=== PATIENT | male | born 1930 | race Caucasian/White ===

== ENCOUNTER 2017-02-28 17:59 | Inpatient (IN) | payer MEDICARE, BC ==
[2017-02-28] MEDS ORDERED: Sodium Chloride 0.9% 1,000 ML IV SCH (18:30)
--- NOTE | 2017-02-28 18:31 | EDM.PDOC ---
<Yo García - Last Filed: 02/28/17 18:25> ED HPI GENERAL MEDICAL PROBLEM - General Chief Complaint: Gastrointestinal Problem Stated Complaint: DIARRHEA,WEAK Time Seen by Provider: 02/28/17 18:26 Source of Information: Reports: Patient, Family - History of Present Illness INITIAL COMMENTS - FREE TEXT/NARRATIVE: 86 yo White male c/o N&V with Diarrhea after eating dinner. Pt. c/o weakness Onset Date: 02/27/17 Onset Time: 20:00 Duration: Hour(s):, Getting Worse Location: Reports: Abdomen, Generalized Severity: Moderate Context: Reports: Other (possible food poisoning) Associated Symptoms: Reports: Loss of Appetite, Nausea/Vomiting, Weakness - Related Data Allergies Allergy/AdvReac Type Severity Reaction Status Date / Time No Known Allergies Allergy Verified 08/14/14 09:50 Home Meds: Home Meds Allopurinol [Allopurinol] 300 mg PO DAILY 08/14/14 [History] Aspirin [Halfprin] 81 mg PO DAILY 08/14/14 [History] Glimepiride [Glimepiride] 4 mg PO BID 08/14/14 [History] Multivitamin [Multi Vitamin Daily] 1 tab PO DAILY 08/14/14 [History] Pantoprazole Sodium [Pantoprazole Sodium] 40 mg PO DAILY 08/14/14 [History] Simvastatin [Simvastatin] 40 mg PO DAILY 08/14/14 [History] Tamsulosin HCl [Tamsulosin HCl] 0.4 mg PO DAILY 08/14/14 [History] metFORMIN [Glucophage] 1,000 mg PO BID 08/14/14 [History] Levothyroxine [Synthroid] 100 mcg PO DAILY 02/28/17 [History] Past Medical History HEENT History: Reports: Impaired Vision Cardiovascular History: Reports: CAD, High Cholesterol, Hypertension Gastrointestinal History: Reports: GERD Genitourinary History: Reports: BPH Musculoskeletal History: Reports: Back Pain, Chronic, Gout, Osteoarthritis Endocrine/Metabolic History: Reports: Diabetes, Type II, Hypothyroidism - Past Surgical History HEENT Surgical History: Reports: Cataract Surgery Social & Family History - Family History Family Medical History: Noncontributory - Tobacco Use Smoking Status *Q: Never Smoker Second Hand Smoke Exposure: No - Caffeine Use Caffeine Use: Reports: Coffee - Alcohol Use Days Per Week of Alcohol Use: 0 - Recreational Drug Use Recreational Drug Use: No Drug Use in Last 12 Months: No - Living Situation & Occupation Living situation: Reports: , with Significant Other Occupation: Retired ED ROS GENERAL - Review of Systems Review Of Systems: See Below Constitutional: Reports: Malaise, Weakness, Fatigue, Decreased Appetite HEENT: Reports: No Symptoms Respiratory: Reports: No Symptoms Cardiovascular: Reports: No Symptoms Endocrine: Reports: No Symptoms GI/Abdominal: Reports: Distension, Nausea : Reports: No Symptoms Musculoskeletal: Reports: No Symptoms Skin: Reports: No Symptoms Neurological: Reports: No Symptoms Psychiatric: Reports: No Symptoms Hematologic/Lymphatic: Reports: No Symptoms Immunologic: Reports: No Symptoms ED EXAM, GENERAL - Physical Exam Exam: See Below Exam Limited By: No Limitations General Appearance: Alert, No Apparent Distress Eye Exam: Bilateral Eye: EOMI, PERRL Ears: Normal External Exam Nose: Normal Inspection Throat/Mouth: Normal Inspection Head: Atraumatic Neck: Normal Inspection Respiratory/Chest: No Respiratory Distress Cardiovascular: Normal Peripheral Pulses, Regular Rate, Rhythm GI/Abdominal: Soft, Non-Tender, Distended, Abnormal Bowel Sounds (hyperactive) (Male) Exam: No Hernia Back Exam: Normal Inspection Extremities: Normal Inspection Neurological: Alert, Oriented, CN II-XII Intact Psychiatric: Normal Affect Skin Exam: Warm, Dry Lymphatic: No Adenopathy Course - Vital Signs Last Recorded V/S: Last Vital Signs Temp 37.0 C 02/28/17 18:00 Pulse 112 H 02/28/17 18:00 Resp 18 02/28/17 18:00 BP 101/59 L 02/28/17 18:00 Pulse Ox 94 L 02/28/17 18:00 - Orders/Labs/Meds Orders: Active Orders 24 hr Category Date Time Status Abdomen 2V AP Flat Upright [CR] Urgent Exams 02/28/17 18:34 Taken Abdomen Pelvis wo Cont [CT] Urgent Exams 02/28/17 19:25 Taken Chest 2V [CR] Urgent Exams 02/28/17 18:25 Taken UA W/MICROSCOPIC [URIN] Stat Lab 02/28/17 18:25 Uncollected Sodium Chloride 0.9% [Normal Saline] 1,000 ml Med 02/28/17 18:30 Active IV ASDIRECTED Medication Orders Sodium Chloride (Normal Saline) 1,000 mls @ 100 mls/hr IV ASDIRECTED [facility] Last Admin: 02/28/17 18:38 Dose: 100 mls/hr Labs: Laboratory Tests 02/28/17 02/28/17 02/28/17 Range/Units 18:35 18:35 18:35 WBC 14.5 H (5.0-10.0) 10^3/uL RBC 4.18 L (4.6-6.2) 10^6/uL Hgb 12.2 L (14.0-18.0) g/dL Hct 37.5 L (40.0-54.0) % MCV 89.7 (80-100) fL MCH 29.2 (27.0-34.0) pg MCHC 32.5 L (33.0-35.0) g/dL Plt Count 220 (150-450) 10^3/uL Neut % (Auto) 80.8 H (42.2-75.2) % Lymph % (Auto) 8.0 L (20.5-50.1) % Callahan % (Auto) 11.0 H (2-8) % Eos % (Auto) 0.1 L (1.0-3.0) % Baso % (Auto) 0.1 (0.0-1.0) % Sodium 139 (135-145) mmol/L Potassium 5.1 H (3.6-5.0) mmol/L Chloride 108 (101-111) mmol/L Carbon Dioxide 19.0 L (21.0-31.0) mmol/L Anion Gap 17.1 BUN 37 H (7-18) mg/dL Creatinine 3.6 H (0.6-1.3) mg/dL Est Cr Clr Drug Dosing 16.79 mL/min Estimated GFR (MDRD) 16 BUN/Creatinine Ratio 10.27 Glucose 252 H (74-105) mg/dL Calcium 8.7 (8.4-10.2) mg/dl Total Bilirubin 0.8 (0.2-1.0) mg/dL AST 21 (10-42) IU/L ALT 13 (10-60) IU/L Alkaline Phosphatase 43 (42-121) IU/L Total Protein 6.8 (6.7-8.2) g/dl Albumin 3.5 (3.2-5.5) g/dl Globulin 3.3 Albumin/Globulin Ratio 1.06 Amylase 25 L (28-100) U/L Lipase 16 L (22-51) U/L Meds: Medications Generic Name Dose Route Start Last Admin Trade Name Freq PRN Reason Stop Dose Admin Sodium Chloride 1,000 mls @ 100 mls/hr 02/28/17 18:30 02/28/17 18:38 Normal Saline IV 100 mls/hr ASDIRECTED THANH Administration Discontinued Medications Generic Name Dose Route Start Last Admin Trade Name Freq PRN Reason Stop Dose Admin Ondansetron HCl 4 mg 02/28/17 18:45 02/28/17 19:01 Zofran IV 02/28/17 18:46 4 mg ONETIME ONE Administration Departure - Departure Disposition: Home, Self-Care 01 Clinical Impression: Gastroenteritis - Discharge Information Instructions: Viral Gastroenteritis, Adult, Ofja-al-Vper Referrals: Darnell Lombardi MD [Primary Care Provider] - Forms: ED Department Discharge Additional Instructions: 1) avoid solid foods next 48 hours 2) follow up with family doctor or recheck if there is any change or concern - My Orders Last 24 Hours: My Active Orders 02/28/17 19:25 Abdomen Pelvis wo Cont [CT] Urgent - Assessment/Plan Last 24 Hours: My Active Orders 02/28/17 19:25 Abdomen Pelvis wo Cont [CT] Urgent <Timmy Wright - Last Filed: 02/28/17 20:06> Course - Re-Assessments/Exams Free Text/Narrative Re-Assessment/Exam: 02/28/17 19:26 results discussed with pt who is feeling only somewhat better. 02/28/17 20:04 results discussed with spouse & pt who was sleeping arousable no c/o presently Departure - Departure Time of Disposition: 20:05 Condition: Good
[2017-02-28] MEDS ORDERED: Ondansetron 4 MG/2 ML SDV IV ONE (18:45)
--- NOTE | 2017-02-28 21:00 | PCM.HP ---
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 He is unable to keep anything down and had 10-12 BM only today from AM. In ED he was found to hypotensive, has received fluid blous but still had orthostatic Hypotension. Pt and his girl friend spend Thursday at campground and they spend weekends in the campground. At [employer] they use their own [place] and eat BBR[employer] meat, Girl friend eat the same meat but she did not have any GI symptom. I reviewed his renal Function and his base line creatinine 1.4-1.7 mg/dl. His creatinine in ED was 3.7 mg/dl with potassium of 5.1 meq/L. He also had CT scan of his Abd/Pelvis and showed Colinic Diverticula No Diverticultis, small bladder stone, mild non-specific changes to the small intestine, this is probably represents Viral Enteritis or other infectious enteritis. Adynamic ileus is also possible.. Onset of Symptoms: Reports: Gradual Duration of Symptoms: Reports: Getting Worse Associated Symptoms: Reports: Nausea/Vomiting - Related Data Allergies/Adverse Reactions: Allergies Allergy/AdvReac Type Severity Reaction Status Date / Time No Known Allergies Allergy Verified 02/28/17 21:14 Home Medications: Home Meds Allopurinol [Allopurinol] 300 mg PO WITHDINNER 08/14/14 [History] Aspirin [Halfprin] 81 mg PO DAILY 08/14/14 [History] Glimepiride [Glimepiride] 4 mg PO BIDMEALS 08/14/14 [History] Multivitamin [Multi Vitamin Daily] 1 tab PO DAILY 08/14/14 [History] Pantoprazole Sodium [Pantoprazole Sodium] 40 mg PO WITHDINNER 08/14/14 [History] Simvastatin [Simvastatin] 40 mg PO WITHDINNER 08/14/14 [History] Tamsulosin HCl [Tamsulosin HCl] 0.4 mg PO WITHDINNER 08/14/14 [History] metFORMIN [Glucophage] 1,000 mg PO BIDMEALS 08/14/14 [History] Levothyroxine [Synthroid] 100 mcg PO DAILY 02/28/17 [History] SitaGLIPtin [Januvia] 100 mg PO DAILY 02/28/17 [History] Valsartan 80 mg PO WITHDINNER 02/28/17 [History] Past Medical History HEENT History: Reports: Impaired Vision Cardiovascular History: Reports: CAD, High Cholesterol, Hypertension Gastrointestinal History: Reports: GERD Genitourinary History: Reports: BPH Musculoskeletal History: Reports: Back Pain, Chronic, Gout, Osteoarthritis Endocrine/Metabolic History: Reports: Diabetes, Type II, Hypothyroidism - Past Surgical History HEENT Surgical History: Reports: Cataract Surgery Social & Family History - Family History Family Medical History: Noncontributory - Tobacco Use Smoking Status *Q: Never Smoker Second Hand Smoke Exposure: No - Caffeine Use Caffeine Use: Reports: Coffee - Alcohol Use Days Per Week of Alcohol Use: 0 - Recreational Drug Use Recreational Drug Use: No Drug Use in Last 12 Months: No - Living Situation & Occupation Living situation: Reports: , with Significant Other Occupation: Retired H&P Review of Systems - Review of Systems: Review Of Systems: See Below General: Reports: Weakness. Denies: Fever, Chills, Weight Loss HEENT: Denies: Dysphasia, Post Nasal Drip, Sore Throat, Visual Changes Pulmonary: Denies: Shortness of Breath, Wheezing, Pleuritic Chest Pain, Cough, Sputum Cardiovascular: Reports: Lightheadedness. Denies: Chest Pain, Palpitations, Dyspnea on Exertion Gastrointestinal: Reports: Diarrhea, Vomiting. Denies: Abdominal Pain, Black Stool, Bloody Stool Genitourinary: Denies: Dysuria, Frequency, Burning, Urgency Musculoskeletal: Denies: Neck Pain, Arm Pain, Foot Pain, Joint Swelling Skin: Denies: Cyanosis, Dryness, Bruising, Pruritis, Rash Psychiatric: Denies: Confusion, Anxiety Neurological: Denies: Confusion, Tingling, Tremors Hematologic/Lymphatic: Reports: No Symptoms Immunologic: Reports: No Symptoms Exam - Exam Exam: See Below - Vital Signs Vital Signs: Last Vital Signs Temp 36.8 C 02/28/17 20:15 Pulse 69 02/28/17 20:15 Resp 16 02/28/17 20:15 BP 89/59 L 02/28/17 20:16 Pulse Ox 95 02/28/17 20:15 Weight: 92.986 kg - Exam Quality Assessment: DVT Prophylaxis. No: Supplemental Oxygen, Urinary Catheter General: Alert, Oriented, Cooperative HEENT: Conjunctiva Clear, Hearing Intact, Mucosa Moist & [place], Pupils Reactive Neck: Supple. No: Lymphadenopathy, Thyromegaly Lungs: Clear to Auscultation, Normal Respiratory Effort. No: Crackles, Wheezing Cardiovascular: Regular Rate, Regular Rhythm, Normal S1, Normal S2, Systolic Murmur GI/Abdominal Exam: Normal Bowel Sounds, Soft, Non-Tender. No: Guarding, Rebound , Tender (Male) Exam: Deferred Rectal (Males) Exam: Deferred Back Exam: Normal Inspection, Full Range of Motion Extremities: Normal Inspection, No Pedal Edema. No: Joint Swelling Skin: Warm, Dry, Intact Neurological: Cranial Nerves Intact, Reflexes Equal Bilateral Neuro Extensive - Mental Status: Alert, Oriented x3, Normal Mood/Affect, Normal Cognition, Memory Intact Neuro Extensive - Motor, Sensory, Reflexes: CN II-XII Intact, Normal Gait, Normal Reflexes Psychiatric: Alert, Normal Affect, Normal Mood - Patient Data Result Diagrams: 02/28/17 18:35 02/28/17 18:35 *Q Meaningful Use (ADM) - VTE *Q VTE Criteria *Q: - Stroke *Q Stroke Criteria *Q: - AMI *Q AMI Criteria *Q: - Problem List (1) Hypertension SNOMED Code(s): 54379746 ICD Code: I10 - ESSENTIAL (PRIMARY) HYPERTENSION Status: Acute Current Visit: Yes (2) SUZANNE (acute kidney injury) SNOMED Code(s): 04532911 ICD Code: N17.9 - ACUTE KIDNEY FAILURE, UNSPECIFIED Status: Acute Current Visit: Yes (3) Vomiting and diarrhea SNOMED Code(s): 124639599 ICD Code: R11.10 - VOMITING, UNSPECIFIED; R19.7 - DIARRHEA, UNSPECIFIED Status: Acute Current Visit: Yes (4) Gastroenteritis SNOMED Code(s): 72878522 ICD Code: K52.9 - NONINFECTIVE GASTROENTERITIS AND COLITIS, UNSPECIFIED Status: Acute Current Visit: Yes Problem List Initiated/Reviewed/Updated: Yes Orders Last 24hrs: Medication Orders Sodium Chloride (Normal Saline) 1,000 mls @ 100 mls/hr IV ASDIRECTED [facility] Last Admin: 02/28/17 18:38 Dose: 100 mls/hr Assessment/Plan Comment:: This is a 86 y/o M came to ED with Diarrhea and Vomting for 48 hrs and also noted have acute renal failure 1. 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 Diff, Ova and parasites -Encourage oral intake of fluids 2. SUZANNE: This is pre-renal Azotemia from relative Hypotension from Diarrhea causing decreased renal Perfusion and leading to acute ischemic Injury Vs ATN -Will continue ND at 150 ml/hr -Will hold all anti-HTN medication, especially Diaovan [ was at 80 mg daily] -Continue I/O recording -BMP in AM 3. Metabolic acidosis: This is secondary to Diarrhea and SUZANNE -Will continue IV fluids and with Recovery of renal function acidosis will improve 4. Hypertension: His BP in ED was low and will hold all home medication 5. CKD stage III: This is likely from HTN and diabetes -Base line creatinine 1.4-1.7 mg/dl and acute rise from SUZANNE - He needs follow up in Nephrology clinic 6. Diabetes II : He was taking Januvia 100 mg daily and Metformin 1000 mg BID -Will hold Metformin and continue Januvia -Will also cover with sliding insulin scale -Will chek blood sugar 4 times a day 7. 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 BPH: Will continue flomax 0.4 mg daily 9. Dyslipidemia: Continue Simvastain at 80 mg daily 10. GI prophylaxis: Start on pepcid at 40 mg daily 11. DVT prophylaxis: Heparin 5000 units TID Code Status: DNR/DNI
[2017-02-28] MEDS ORDERED: Docusate Sodium 100 MG Cap PO PRN (21:41)
[2017-02-28] MEDS ORDERED: Acetaminophen 325 MG Tab PO PRN (21:41)
[2017-02-28] MEDS ORDERED: Metoclopramide 10 MG/2 ML SDV IVPUSH PRN (22:13)
[2017-02-28] MEDS: Heparin Sodium 5,000 Units/ML Vial SUBCUT SCH (22:39)
[2017-02-28] MEDS: Sodium Chloride 0.9% 1,000 ML IV SCH (22:39)
[2017-02-28] MEDS ORDERED: Insulin Aspart 100 Units/ML 3 ML Pen SUBCUT ONE (23:00)
[2017-03-01] MEDS: Sodium Chloride 0.9% 1,000 ML IV SCH ×3 (05:21→19:12)
[2017-03-01] MEDS: Levothyroxine 100 MCG Tab PO SCH (06:16)
[2017-03-01] MEDS: Heparin Sodium 5,000 Units/ML Vial SUBCUT SCH ×3 (06:16→21:38)
[2017-03-01] MEDS: Pantoprazole 40 MG Tab.CR PO SCH (06:16)
[2017-03-01] MEDS: Insulin Aspart 100 Units/ML 3 ML Pen SUBCUT SCH ×4 (08:48→21:38)
[2017-03-01] MEDS: Tamsulosin 0.4 MG Cap.ER PO SCH (09:21)
[2017-03-01] MEDS: Glimepiride 2 MG Tab PO SCH ×2 (09:21→17:13)
[2017-03-01] MEDS: Aspirin 81 MG Tab.EC PO SCH (09:21)
--- NOTE | 2017-03-01 10:27 | PCM.PN ---
- General Info Date of Service: 03/01/17 Admission Dx/Problem (Free Text): The pt admitted with Diarrhea and acute renal Failure Subjective Update: Pt was seen in room, doing well, No more diarrhea over the night, No nausea or Vomiting. Tolerating clear liquid, will advance diet to regular consistent carbohydrate diet. He had no fever or Chill Functional Status: Reports: Pain Controlled, Tolerating Diet, Ambulating, Urinating - Review of Systems General: Reports: Appetite (good). Denies: Fever, Malaise, Chills HEENT: Denies: Headaches, Sinus Congestion, Sore Throat, Visual Changes Pulmonary: Denies: Shortness of Breath, Pleuritic Chest Pain, Cough, Sputum, Wheezing Cardiovascular: Reports: Lightheadedness. Denies: Chest Pain, Dyspnea on Exertion, Edema Gastrointestinal: Reports: Diarrhea. Denies: Abdominal Pain, Melena, Nausea, Vomiting Genitourinary: Denies: Dysuria, Frequency, Burning, Urgency, Flank Pain Musculoskeletal: Denies: Neck Pain, Shoulder Pain, Leg Pain, Foot Pain Skin: Denies: Cyanosis, Jaundice, Bruising, Pruritis, Rash Neurological: Denies: Confusion, Headache, Tingling, Tremors Psychiatric: Denies: Confusion, Anxiety - Patient Data Vitals - Most Recent: Last Vital Signs Temp 36.8 C 03/01/17 08:23 Pulse 89 03/01/17 08:23 Resp 20 03/01/17 08:23 BP 107/58 L 03/01/17 08:23 Pulse Ox 98 03/01/17 08:23 Weight - Most Recent: 92.986 kg I&O - Last 24 Hours: Intake & Output 02/28/17 03/01/17 03/01/17 22:59 06:59 14:59 Intake Total 450 Balance 450 Lab Results Last 24 Hours: Laboratory Results - last 24 hr 02/28/17 03/01/17 03/01/17 Range/Units 22:28 06:15 07:54 Sodium 141 (135-145) mmol/L Potassium 4.5 (3.6-5.0) mmol/L Chloride 109 (101-111) mmol/L Carbon Dioxide 21.0 (21.0-31.0) mmol/L Anion Gap 15.5 BUN 45 H (7-18) mg/dL Creatinine 3.6 H (0.6-1.3) mg/dL Est Cr Clr Drug Dosing 16.79 mL/min Estimated GFR (MDRD) 16 Glucose 144 H (74-105) mg/dL POC Glucose 184 H 143 H (83-110) mg/dl Calcium 7.9 L (8.4-10.2) mg/dl Urine Color (YELLOW) Urine Appearance (CLEAR) Urine pH (5.0-9.0) Ur Specific [place] (1.005-1.030) Urine Protein (NEGATIVE) Urine Glucose (UA) (NEGATIVE) Urine Ketones (NEGATIVE) Urine Occult Blood (NEGATIVE) Urine Nitrite (NEGATIVE) Urine Bilirubin (NEGATIVE) Urine Urobilinogen (0.2-1.0) mg/dL Ur Leukocyte Esterase (NEGATIVE) Urine RBC /HPF Urine WBC (0-5/HPF) /HPF Ur Epithelial Cells /HPF Amorphous Sediment (0/HPF) /HPF Urine Bacteria (0-FEW/HPF) /HPF Hyaline Casts /LPF Urine Mucus /LPF 03/01/17 Range/Units 08:50 Sodium (135-145) mmol/L Potassium (3.6-5.0) mmol/L Chloride (101-111) mmol/L Carbon Dioxide (21.0-31.0) mmol/L Anion Gap BUN (7-18) mg/dL Creatinine (0.6-1.3) mg/dL Est Cr Clr Drug Dosing mL/min Estimated GFR (MDRD) Glucose (74-105) mg/dL POC Glucose (83-110) mg/dl Calcium (8.4-10.2) mg/dl Urine Color Dark yellow (YELLOW) Urine Appearance Clear (CLEAR) Urine pH 5.0 (5.0-9.0) Ur Specific [place] 1.020 (1.005-1.030) Urine Protein 30 H (NEGATIVE) Urine Glucose (UA) Negative (NEGATIVE) Urine Ketones Trace H (NEGATIVE) Urine Occult Blood Negative (NEGATIVE) Urine Nitrite Negative (NEGATIVE) Urine Bilirubin Moderate H (NEGATIVE) Urine Urobilinogen 0.2 (0.2-1.0) mg/dL Ur Leukocyte Esterase Negative (NEGATIVE) Urine RBC Not seen /HPF Urine WBC 0-5 (0-5/HPF) /HPF Ur Epithelial Cells Few /HPF Amorphous Sediment Few (0/HPF) /HPF Urine Bacteria Not seen (0-FEW/HPF) /HPF Hyaline Casts Few H /LPF Urine Mucus Not seen /LPF Med Orders - Current: Current Medications Acetaminophen (Tylenol) 650 mg PO Q4H PRN PRN Reason: Pain (mild 1-3 )/fever Aspirin (Halfprin) 81 mg PO DAILY [facility] Last Admin: 03/01/17 09:21 Dose: 81 mg Docusate Sodium (Colace) 100 mg PO DAILY PRN PRN Reason: Constipation Glimepiride (Amaryl) 4 mg PO BIDMEALS [facility] Last Admin: 03/01/17 09:21 Dose: 4 mg Heparin Sodium (Porcine) (Heparin Sodium) 5,000 units SUBCUT Q8H [facility] Last Admin: 03/01/17 06:16 Dose: 5,000 units Sodium Chloride (Normal Saline) 1,000 mls @ 150 mls/hr IV ASDIRECTED [facility] Last Admin: 03/01/17 05:21 Dose: 150 mls/hr Insulin Aspart (Novolog) 0 unit SUBCUT QID [facility] PRN Reason: Protocol Last Admin: 03/01/17 08:48 Dose: Not Given Levothyroxine Sodium (Synthroid) 100 mcg PO ACBREAKFAST [facility] Last Admin: 03/01/17 06:16 Dose: 100 mcg Metoclopramide HCl (Reglan) 5 mg IVPUSH Q6H PRN PRN Reason: Nausea Non-Formulary Medication (Sitagliptin [Januvia]) 100 mg PO DAILY [facility] Pantoprazole Sodium (Protonix) 40 mg PO ACBRK [facility] Last Admin: 03/01/17 06:16 Dose: 40 mg [facility]) [facility] Tamsulosin HCl (Flomax) 0.4 mg PO DAILY [facility] Last Admin: 03/01/17 09:21 Dose: 0.4 mg Discontinued Medications Sodium Chloride (Normal Saline) 1,000 mls @ 100 mls/hr IV ASDIRECTED [facility] Last Admin: 02/28/17 18:38 Dose: 100 mls/hr Insulin Aspart (Novolog) 0 unit SUBCUT ONETIME ONE PRN Reason: Protocol Stop: 02/28/17 23:01 Last Admin: 02/28/17 23:02 Dose: 2 units Ondansetron HCl (Zofran) 4 mg IV ONETIME ONE Stop: 02/28/17 18:46 Last Admin: 02/28/17 19:01 Dose: 4 mg - Exam Quality Assessment: DVT Prophylaxis. No: Supplemental Oxygen, Urine Catheter General: Alert, Oriented, Cooperative, No Acute Distress HEENT: Pupils Equal, EOMI, Mucous Membr. Moist/[place] Neck: Supple, No JVD. No: Lymphadenopathy Lungs: Clear to Auscultation, Normal Respiratory Effort. No: Crackles, Wheezing Cardiovascular: Regular Rate, Regular Rhythm, Murmurs GI/Abdominal Exam: Normal Bowel Sounds, Soft, Non-Tender, No Distention. No: Guarding, Rebound (Male) Exam: Deferred Back Exam: Normal Inspection, Full Range of Motion Extremities: Normal Inspection, Non-Tender, No Pedal Edema Skin: Warm, Dry, Intact Neurological: No New Focal Deficit, Normal Speech, Normal Tone Psy/Mental Status: Alert, Normal Affect, Normal Mood - Problem List & Annotations (1) Hypertension SNOMED Code(s): 66254546 Code(s): I10 - ESSENTIAL (PRIMARY) HYPERTENSION Status: Acute Current Visit: Yes (2) SUZANNE (acute kidney injury) SNOMED Code(s): 57377225 Code(s): N17.9 - ACUTE KIDNEY FAILURE, UNSPECIFIED Status: Acute Current Visit: Yes (3) Vomiting and diarrhea SNOMED Code(s): 990749498 Code(s): R11.10 - VOMITING, UNSPECIFIED; R19.7 - DIARRHEA, UNSPECIFIED Status: Acute Current Visit: Yes (4) Gastroenteritis SNOMED Code(s): 18619941 Code(s): K52.9 - NONINFECTIVE GASTROENTERITIS AND COLITIS, UNSPECIFIED Status: Acute Current Visit: Yes - Problem List Review Problem List Initiated/Reviewed/Updated: Yes - My Orders Last 24 Hours: My Active Orders 02/28/17 21:49 OVA & PARASITES Routine 02/28/17 21:50 C DIFFICILE TOXIN BY PCR [MREF] Routine 02/28/17 22:00 Sodium Chloride 0.9% [Normal Saline] 1,000 ml IV ASDIRECTED 02/28/17 22:12 Blood Glucose Check, Bedside [RC] QIDACANDBED 02/28/17 22:13 Metoclopramide [Reglan] 5 mg IVPUSH Q6H PRN 03/01/17 06:00 Levothyroxine [Synthroid] 100 mcg PO ACBREAKFAST Pantoprazole [ProTONIX] 40 mg PO ACBRK 03/01/17 08:00 Glimepiride [Amaryl] 4 mg PO BIDMEALS 03/01/17 09:00 Aspirin [Halfprin] 81 mg PO DAILY Insulin Aspart [NovoLOG] See Protocol SUBCUT QID SitaGLIPtin [Januvia] 100 mg PO DAILY Tamsulosin [Flomax] 0.4 mg PO DAILY 03/01/17 18:30 Simvastatin [Zocor] 40 mg PO PCDINNER 03/01/17 Lunch Consistent Carbohydrate Diet [DIET] - Plan Plan:: This is a 86 y/o M came to ED with Diarrhea and Vomting for 48 hrs and also noted have acute renal failure 1. 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 Diff, Ova and parasites -Encourage oral intake of fluids 2. SUZANNE: This is pre-renal Azotemia from relative Hypotension from Diarrhea causing decreased renal Perfusion and leading to acute ischemic Injury Vs ATN -Will continue ND at 150 ml/hr -Will hold all anti-HTN medication, especially Diaovan [ he was at 80 mg daily] -Continue I/O recording -BMP in AM 3. Metabolic acidosis: This is secondary to Diarrhea and SUZANNE -Will continue IV fluids and Improving with Recovery of renal function and Diarrhea 4. Hypertension: His BP in is still low,Will continue to hold all home medication and continue IVF 5. CKD stage III: This is likely from HTN and diabetes -Base line creatinine 1.4-1.7 mg/dl and acute rise from SUZANNE - He needs follow up in Nephrology clinic< discussed with pt and Girl Friend and he agreed to have follow up 6. Diabetes II : He was taking Januvia 100 mg daily and Metformin 1000 mg BID -Will continue to hold Metformin ( because of SUZANNE) and continue Januvia -Will continue sliding insulin scale coverage -Will Continue to chek blood sugar 4 times a day 7. Hyperuricemia: He was on allopurinol 300 mg daily and will continue to hold now because of SUZANNE 8. BPH: Will continue flomax 0.4 mg daily 9. Dyslipidemia: Continue Simvastain at 80 mg daily 10. GI prophylaxis: Continue pepcid at 40 mg daily 11. DVT prophylaxis: Heparin 5000 units TID Code Status: DNR/DNI
[2017-03-01] MEDS: JANUVIA 100 MG PO SCH (12:09)
[2017-03-01] MEDS: Simvastatin 40 MG Tab PO SCH ×2 (17:14→18:28)
[2017-03-02] MEDS: Sodium Chloride 0.9% 1,000 ML IV SCH ×2 (01:51→08:45)
[2017-03-02] MEDS: Pantoprazole 40 MG Tab.CR PO SCH (05:24)
[2017-03-02] MEDS: Heparin Sodium 5,000 Units/ML Vial SUBCUT SCH (05:24)
[2017-03-02] MEDS: Levothyroxine 100 MCG Tab PO SCH (05:24)
[2017-03-02] MEDS: Insulin Aspart 100 Units/ML 3 ML Pen SUBCUT SCH (08:22)
[2017-03-02] MEDS: Glimepiride 2 MG Tab PO SCH (08:56)
[2017-03-02] MEDS: Tamsulosin 0.4 MG Cap.ER PO SCH (08:56)
[2017-03-02] MEDS: Aspirin 81 MG Tab.EC PO SCH (08:56)
[2017-03-02] MEDS: JANUVIA 100 MG PO SCH (08:57)
[2017-03-02 11:17] VITALS: BP 126/74
--- NOTE | 2017-03-11 01:20 | DISCH ---
FINAL DIAGNOSES: 1. Acute kidney injury. 2. Episodes of vomiting and diarrhea. 3. Hypertension. 4. Diabetes. 5. Dyslipidemia. BRIEF HISTORY AND PHYSICAL EXAMINATION: The patient is an 86-year-old male, who was brought in because of diarrhea and acute renal failure. Apparently, 2 days prior to this visit, has been having episodes of diarrhea and vomiting, and around 10 to 12 bowel movements since morning of admission. He has chronic kidney disease. Baseline creatinine 1.4 to 1.7. However, on admission, was noted to have elevated creatinine at 3.7. PAST MEDICAL HISTORY: 1. Hypertension. 2. Heart problem. 3. Back pain. 4. Osteoarthritis. 5. Diabetes. PHYSICAL EXAMINATION: Vital Signs: Documented physical exam shows a blood pressure of 89/59, heart rate of 69 beats per minute, respirations 16 breaths per minute, oxygen saturation 95%, temperature 36.8. Rest of the examination is within normal limits. Abdomen: Soft, nontender. No rebound or direct tenderness. LABORATORY DATA: Workup done during hospitalization showed WBC of 14.5, hemoglobin 12.2, platelets 220. Initial potassium was 5.1, creatinine 3.6, glucose 252. The discharge creatinine showed 2.6. Microbiologic study showed stool culture with no Cryptosporidium or Giardia. HOSPITAL COURSE: The patient was admitted in medical-surgical bed. Some of his blood pressure medications were on hold given the borderline blood pressure. He was hydrated. In's and out's were monitored, was putting out adequate urine output. 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 The latest one was 126/74. No recurrence of diarrhea nor vomiting during the admission. CAT scan showed no diverticulitis given his chronic colonic diverticular. Rest of his medications were continued during this admission. DVT prophylaxis with heparin. Discharge vital signs showed blood pressure of 126/74, heart rate of 80 beats per minute, respirations 20 breaths per minute, oxygen saturation 98%, and temperature 37.0. DISCHARGE INSTRUCTIONS: The patient to follow up with primary care provider within 1 week from discharge. Advised that he will slowly start taking his blood pressure medication and to keep up with fluids. The patient to come back to the emergency room if any emergent health concerns. Otherwise, inform clinic with other questions. [facility] /[id number] [facility]
== END 2017-03-02 12:04 | disposition home or self-care (01) | DRG 392 ==
LOC: DL.ED 17:59 → DL.MS 20:37 → UNDOADMIN 20:37 → DL.MS 20:38
PROVIDERS: ADMIT Internal Medicine Nephrology; ATTEND Internal Medicine Nephrology
DX: K52.9 Noninfective gastroenteritis and colitis, unspecified (principal); E87.2 Acidosis; N17.9 Acute kidney failure, unspecified; A08.4 Viral intestinal infection, unspecified; E11.22 Type 2 diabetes mellitus with diabetic chronic kidney disease; I12.9 Hypertensive chronic kidney disease with stage 1 through stage 4 chronic kidney disease, or unspecified chronic kidney disease; N18.3 Chronic kidney disease, stage 3 (moderate); E79.0 Hyperuricemia without signs of inflammatory arthritis and tophaceous disease; N40.0 Benign prostatic hyperplasia without lower urinary tract symptoms; E78.5 Hyperlipidemia, unspecified; Z79.82 Long term (current) use of aspirin; Z79.84 Long term (current) use of oral hypoglycemic drugs; Z79.899 Other long term (current) drug therapy
CPT/HCPCS: 36415; 51798; 71020; 74020; 74176; 80048; 80053; 81001; 82150; 82962; 83690; 85025; 87328; 87329; 87493; 96361; 96374; 99284; 99285; A9270-GY; J1644; J1815-GY; J2405; J7030

== ENCOUNTER 2020-12-30 19:21 | Emergency (ER) | payer MEDICARE, BC ==
--- NOTE | 2020-12-30 19:45 | EDM.PDOC ---
ED HPI GENERAL MEDICAL PROBLEM - General Stated Complaint: AMBULANCE Time Seen by Provider: 12/30/20 19:22 Source of Information: Reports: Patient, EMS, EMS Notes Reviewed, RN, RN Notes Reviewed History Limitations: Reports: No Limitations - History of Present Illness INITIAL COMMENTS - FREE TEXT/NARRATIVE: Patient is an 89-year-old male who presents to ER per [facility] ambulance service with complaint of right leg/hip pain. Patient states he had been out to the [facility] for Father's Day treats with his family when he came home and tripped over a crack in the cement, fell unable to get up. Patient states he "bumped his head" but denies any pain, denies being knocked out, denies taking any blood thinners. Patient does take a baby aspirin. Patient states he does use a cane, lives in an apartment with his significant other. Patient states history of diabetes. Onset: Today, Sudden - Related Data Allergies Allergy/AdvReac Type Severity Reaction Status Date / Time No Known Allergies Allergy Verified 02/28/17 21:14 Home Meds: Home Meds Aspirin [Halfprin] 81 mg PO DAILY 08/14/14 [History] Glimepiride 4 mg PO BIDMEALS 08/14/14 [History] Multivitamin [Multi-Vitamin Daily] 1 tab PO DAILY 08/14/14 [History] Pantoprazole Sodium 40 mg PO WITHDINNER 08/14/14 [History] Simvastatin 40 mg PO WITHDINNER 08/14/14 [History] Tamsulosin HCl 0.4 mg PO WITHDINNER 08/14/14 [History] allopurinoL [Allopurinol] 300 mg PO WITHDINNER 08/14/14 [History] metFORMIN [Glucophage] 1,000 mg PO BIDMEALS 08/14/14 [History] Levothyroxine [Synthroid] 100 mcg PO DAILY 02/28/17 [History] SitaGLIPtin [Januvia] 100 mg PO DAILY 02/28/17 [History] Valsartan 80 tab PO DAILY 03/02/17 [History] Past Medical History HEENT History: Reports: Impaired Vision Cardiovascular History: Reports: CAD, High Cholesterol, Hypertension Gastrointestinal History: Reports: GERD Genitourinary History: Reports: BPH Musculoskeletal History: Reports: Back Pain, Chronic, Gout, Osteoarthritis Neurological History: Reports: TIA Endocrine/Metabolic History: Reports: Diabetes, Type II, Hypothyroidism - Past Surgical History HEENT Surgical History: Reports: Cataract Surgery Social & Family History - Family History Family Medical History: No Pertinent Family History - Caffeine Use Caffeine Use: Reports: Coffee - Living Situation & Occupation Living situation: Reports: , with Significant Other Occupation: Retired Review of Systems - Review of Systems Review Of Systems: Comprehensive ROS is negative, except as noted in HPI. ED EXAM, GENERAL - Physical Exam Exam: See Below Exam Limited By: Physical Impairment General Appearance: Alert, WD/WN, Mild Distress Eye Exam: Bilateral Eye: EOMI, Normal Inspection Ears: Normal External Exam, Hearing Grossly Normal Nose: Normal Inspection Throat/Mouth: Normal Inspection, Normal Voice, No Airway Compromise Head: Atraumatic, Normocephalic Neck: Normal Inspection, Supple, Non-Tender, Full Range of Motion Respiratory/Chest: No Respiratory Distress, Lungs Clear, Normal Breath Sounds, No Accessory Muscle Use, Chest Non-Tender, Decreased Breath Sounds Cardiovascular: Normal Peripheral Pulses, Regular Rate, Rhythm, No Edema, No Gallop, No JVD, No Murmur, No Rub Peripheral Pulses: 2+: Radial (L), Radial (R), Dorsalis Pedis (L), Dorsalis Pedis (R) GI/Abdominal: Normal Bowel Sounds, Soft, Non-Tender (Male) Exam: Deferred Rectal (Males) Exam: Deferred Back Exam: Normal Inspection, Full Range of Motion, NT Extremities: Leg Pain (Right), Limited Range of Motion (Right leg) Neurological: Alert, Oriented, CN II-XII Intact, Normal Cognition, No Motor/Sensory Deficits Psychiatric: Normal Affect, Normal Mood Skin Exam: Warm, Dry, Intact, Normal Color, No Rash Lymphatic: No Adenopathy #1 Interpretation EKG Date: 12/30/20 Time: 19:54 Rhythm: NSR Rate (Beats/Min): 85 [place]: Normal P-Wave: Present QRS: Normal ST-T: Normal QT: Normal Comparison: NA - No Prior EKG Course - Orders/Labs/Meds Orders: Active Orders 24 hr Category Date Time Status EKG Documentation Completion [RC] STAT Care 12/30/20 19:38 Active UA RFX ALEXY AND CULT IF INDIC [URIN] Stat Lab 12/30/20 19:39 Ordered Labs: Laboratory Tests 12/30/20 12/30/20 12/30/20 Range/Units 19:26 19:26 19:26 WBC 6.3 (5.0-10.0) 10^3/uL RBC 4.46 L (4.6-6.2) 10^6/uL Hgb 13.6 L (14.0-18.0) g/dL Hct 40.6 (40.0-54.0) % MCV 91.0 (80-100) fL MCH 30.5 (27.0-34.0) pg MCHC 33.5 (33.0-35.0) g/dL Plt Count 195 (150-450) 10^3/uL Neut % (Auto) 49.8 (42.2-75.2) % Lymph % (Auto) 37.5 (20.5-50.1) % [place] % (Auto) 9.9 H (2-8) % Eos % (Auto) 2.2 (1.0-3.0) % Baso % (Auto) 0.6 (0.0-1.0) % PT 10.5 (9.0-12.0) SEC INR 1.0 (0.9-1.2) Sodium 142 (136-145) mmol/L Potassium 4.2 (3.5-5.1) mmol/L Chloride 105 (98-107) mmol/L Carbon Dioxide 29 (21-32) mmol/L Anion Gap 12.2 (7-13) mEq/L BUN 22 H (7-18) mg/dL Creatinine 2.00 H (0.70-1.30) mg/dL Est Cr Clr Drug Dosing TNP Estimated GFR (MDRD) 32 BUN/Creatinine Ratio 11.0 (No establ ref range) Glucose 233 H (70-99) mg/dL Calcium 8.3 L (8.5-10.1) mg/dL Total Bilirubin 0.7 (0.2-1.0) mg/dL AST 16 (15-37) U/L ALT 28 (16-63) U/L Alkaline Phosphatase 70 (46-116) U/L Total Protein 6.6 (6.4-8.2) g/dL Albumin 3.1 L (3.4-5.0) g/dL Globulin 3.5 Albumin/Globulin Ratio 0.89 Ethyl Alcohol < 3 (0) mg/dL Meds: Medications Discontinued Medications Generic Name Dose Route Start Last Admin Trade Name Delvis PRN Reason Stop Dose Admin Hydromorphone HCl 1 mg 12/30/20 19:47 12/30/20 19:57 Hydromorphone 1 Mg/Ml Syringe IVPUSH 12/30/20 19:48 1 mg ONETIME ONE Administration - Radiology Interpretation Free Text/Narrative:: Right hip xray: PROCEDURE INFORMATION: Exam: XR Right Hip Exam date and time: 12/30/2020 8:06 PM Age: 89 years old Clinical indication: Other: Pain right hip; Additional info: Fall, shortened right leg, outward facing TECHNIQUE: Imaging protocol: XR Right hip. Views: 2 or 3 views hip with pelvis when performed. Total images: 2 COMPARISON: No relevant prior studies available. FINDINGS: Bones/joints: There is an acute displaced comminuted right intertrochanteric fracture. Marked medial displacement main distal fracture fragment. There is some angulation. There is an additional small Displaced fracture fragment inferior to the main fracture site Soft tissues: Unremarkable. IMPRESSION: Acute displaced comminuted right intertrochanteric femoral fracture. Thank you for allowing us to participate in the care of your patient. Dictated and Authenticated by: Geovanny Lay MD 12/30/2020 8:35 PM Central Time ([place] & [place]) See rad report - Re-Assessments/Exams Free Text/Narrative Re-Assessment/Exam: 12/30/20 20:52 Discussed patient case with Dr. Concepcion at [facility] who agreed to accept the patient for transfer. Departure - Departure Time of Disposition: 20:52 Disposition: DC/Tfer to Acute Hospital 02 Condition: Fair Clinical Impression: Intertrochanteric fracture, hip - Discharge Information *PRESCRIPTION DRUG MONITORING PROGRAM REVIEWED*: No *COPY OF PRESCRIPTION DRUG MONITORING REPORT IN PATIENT GENESIS: No Forms: ED Department Discharge, Interfacility Transfer EMTALA - My Orders Last 24 Hours: My Active Orders 12/30/20 19:38 EKG Documentation Completion [RC] STAT 12/30/20 19:39 UA RFX ALEXY AND CULT IF INDIC [URIN] Stat - Assessment/Plan Last 24 Hours: My Active Orders 12/30/20 19:38 EKG Documentation Completion [RC] STAT 12/30/20 19:39 UA RFX ALEXY AND CULT IF INDIC [URIN] Stat
[2020-12-30] MEDS ORDERED: HYDROmorphone 1 MG/ML Syringe IVPUSH ONE (19:47)
[2020-12-30 20:04] LABS: ANION GAP 12.2 mEq/L (7-13); CHLORIDE,CL 105 mmol/L (98-107); SODIUM,NA 142 mmol/L (136-145)
--- NOTE | 2020-12-30 20:36 | CR ---
PROCEDURE INFORMATION: Exam: XR Right Hip Exam date and time: 12/30/2020 8:06 PM Age: 89 years old Clinical indication: Other: Pain right hip; Additional info: Fall, shortened right leg, outward facing TECHNIQUE: Imaging protocol: XR Right hip. Views: 2 or 3 views hip with pelvis when performed. Total images: 2 COMPARISON: No relevant prior studies available. FINDINGS: Bones/joints: There is an acute displaced comminuted right intertrochanteric fracture. Marked medial displacement main distal fracture fragment. There is some angulation. There is an additional small Displaced fracture fragment inferior to the main fracture site Soft tissues: Unremarkable. IMPRESSION: Acute displaced comminuted right intertrochanteric femoral fracture.
[2020-12-30 21:35] VITALS: BP 155/78; PULSE 85
== END 2020-12-30 21:17 ==
LOC: DL.ED 19:21
DX: S72.141A Displaced intertrochanteric fracture of right femur, initial encounter for closed fracture (principal); I25.10 Atherosclerotic heart disease of native coronary artery without angina pectoris; E78.00 Pure hypercholesterolemia, unspecified; I10 Essential (primary) hypertension; K21.9 Gastro-esophageal reflux disease without esophagitis; E11.9 Type 2 diabetes mellitus without complications; E03.9 Hypothyroidism, unspecified; Z79.899 Other long term (current) drug therapy; Z79.84 Long term (current) use of oral hypoglycemic drugs; Z79.82 Long term (current) use of aspirin; W01.0XXA Fall on same level from slipping, tripping and stumbling without subsequent striking against object, initial encounter; Y92.009 Unspecified place in unspecified non-institutional (private) residence as the place of occurrence of the external cause
CPT/HCPCS: 36415; 73502; 80053; 80307; 85025; 85610; 93005; 96374; 99284; 99285; J1170

== ENCOUNTER 2021-01-07 11:24 | Inpatient (IN) | payer MEDICARE, BC ==
[2021-01-07] MEDS ORDERED: Glucagon,Human Recombinant 1 MG Vial IM PRN ×2 (15:26→15:43)
[2021-01-07] MEDS ORDERED: 50% Dextrose in Water 50 ML Syringe IVPUSH PRN ×2 (15:26→15:43)
[2021-01-07] MEDS ORDERED: Ondansetron 4 MG Tab.DIS PO PRN (15:40)
--- NOTE | 2021-01-07 15:49 | PCM.HP ---
H&P History of Present Illness - General Date of Service: 01/07/21 Admit Problem/Dx: Admission Diagnosis/Problem Admission Diagnosis/Problem Hip fracture, intertrochanteric Source of Information: Patient - History of Present Illness Initial Comments - Free Text/Narative: The patient is an 89-year-old male who was transferred from [facility] status post right lung gamma nail fixation following right intertrochanteric fracture on December 31, 2020 after sustaining mechanical fall. The patient has fever, rigors, nausea, vomiting, cough, wheeze, abdominal pain, diarrhea, dyspnea. He states laying in bed he has no pain of his right hip however it is painful with movement. He states overall he has been eating well and has been having bowel movements on an intermittent basis. Indicates that he was working with physical therapy at the outside facility and progressing. He presents for further evaluation - Related Data Allergies/Adverse Reactions: Allergies Allergy/AdvReac Type Severity Reaction Status Date / Time quinapril Allergy Cough Verified 01/07/21 12:18 Home Medications: Home Meds Glimepiride 4 mg PO BIDMEALS 08/14/14 [History] Multivitamin [Multi-Vitamin Daily] 1 tab PO DAILY 08/14/14 [History] Pantoprazole Sodium 40 mg PO WITHDINNER 08/14/14 [History] Simvastatin 40 mg PO WITHDINNER 08/14/14 [History] Tamsulosin HCl 0.4 mg PO WITHDINNER 08/14/14 [History] allopurinoL [Allopurinol] 150 mg PO WITHDINNER 08/14/14 [History] SitaGLIPtin [Januvia] 50 mg PO DAILY 02/28/17 [History] Acetaminophen 1,000 mg PO Q8HR 01/07/21 [History] Aspirin [Aspirin EC] 325 mg PO DAILY 01/07/21 [History] Gabapentin [Neurontin] 600 mg PO BID 01/07/21 [History] Ibuprofen 600 mg PO Q8HR 01/07/21 [History] Insulin Glarg,Human.Rec.Analog [Lantus] 24 unit SUBCUT BEDTIME 01/07/21 [History] Levothyroxine 125 mg PO ACBREAKFAST 01/07/21 [History] Lidocaine 5% [Lidoderm 5%] 700 mg TOP Q12HR 01/07/21 [History] Remove Patch 1 patch TOP Q12HR 01/07/21 [History] Semaglutide [Ozempic] 0.5 mg SUBCUT .ONCE WEEKLY 01/07/21 [History] carvediloL [Carvedilol] 6.25 mg PO BID 01/07/21 [History] oxyCODONE 5 mg PO Q8HR PRN 01/07/21 [History] Past Medical History HEENT History: Reports: Impaired Vision Cardiovascular History: Reports: CAD, High Cholesterol, Hypertension Gastrointestinal History: Reports: GERD Genitourinary History: Reports: BPH Musculoskeletal History: Reports: Back Pain, Chronic, Gout, Osteoarthritis Neurological History: Reports: TIA Other Neuro History: 1992- Endocrine/Metabolic History: Reports: Diabetes, Type II, Hypothyroidism - Past Surgical History HEENT Surgical History: Reports: Cataract Surgery Cardiovascular Surgical History: Reports: None GI Surgical History: Reports: None, Colonoscopy Male Surgical History: Reports: Kidney Stone Extraction Endocrine Surgical History: Reports: None Neurological Surgical History: Reports: None Musculoskeletal Surgical History: Reports: ORIF, Other (See Below) Other Musculoskeletal Surgeries/Procedures:: femure fracture 2020 with ORIF Dermatological Surgical History: Reports: None Social & Family History - Family History Family Medical History: No Pertinent Family History - Tobacco Use Tobacco Use Status *Q: Former Tobacco User Used Tobacco, but Quit: Yes Month/Year Tobacco Last Used: 15 Second Hand Smoke Exposure: No - Caffeine Use Caffeine Use: Reports: Coffee - Recreational Drug Use Recreational Drug Use: No - Living Situation & Occupation Living situation: Reports: , with Significant Other Occupation: Retired H&P Review of Systems - Review of Systems: Review Of Systems: See Below General: Reports: No Symptoms HEENT: Reports: No Symptoms Pulmonary: Reports: No Symptoms Cardiovascular: Reports: No Symptoms Gastrointestinal: Reports: No Symptoms Genitourinary: Reports: No Symptoms Musculoskeletal: Reports: No Symptoms Skin: Reports: No Symptoms Psychiatric: Reports: No Symptoms Neurological: Reports: No Symptoms Hematologic/Lymphatic: Reports: No Symptoms Immunologic: Reports: No Symptoms Exam - Exam Exam: See Below - Vital Signs Vital Signs: Last Vital Signs Temp 98.8 F 01/07/21 13:30 Pulse 88 01/07/21 13:30 Resp 22 H 01/07/21 13:30 BP 138/90 01/07/21 13:30 Pulse Ox 100 01/07/21 13:30 Weight: 219 lb 6.4 oz - Exam General: Alert, Oriented, 4 HEENT: PERRLA, Hearing Intact, Mucosa Moist & [place], Nares Patent, Normal Nasal Septum, Posterior Pharynx Clear, Conjunctiva Clear, EOMI, EACs Clear, TMs Clear Neck: Supple, Trachea Midline, 2 Lungs: Clear to Auscultation, Normal Respiratory Effort Cardiovascular: Regular Rate, Regular Rhythm GI/Abdominal Exam: Normal Bowel Sounds, Soft, Non-Tender, No Organomegaly, No Distention, No Abnormal Bruit, No Mass, Pelvis Stable (Male) Exam: No Hernia, Normal Inspection, Normal Prostate, Circumcised Rectal (Males) Exam: Normal Exam, Normal Rectal Tone, Prostate Normal Back Exam: Normal Inspection, Full Range of Motion, NT Extremities: Normal Inspection, Normal Range of Motion, Non-Tender, No Pedal Edema, Normal Capillary Refill Peripheral Pulses: 2+: Carotid (L), Carotid (R), Brachial (L), Brachial (R), Radial (L), Radial (R), Femoral (L), Femoral (R), Popliteal (L), Popliteal (R), Posterior Tibial (L), Posterior Tibial (R), Dorsalis Pedis (L), Dorsalis Pedis (R) Skin: Warm, Dry, Intact Neurological: Cranial Nerves Intact, Reflexes Equal Bilateral Neuro Extensive - Mental Status: Alert, Oriented x3, Normal Mood/Affect, Normal Cognition Neuro Extensive - Motor, Sensory, Reflexes: CN II-XII Intact, Normal Gait, Normal Reflexes DTR: 2+: Bicep (L), Bicep (R), Tricep (L), Tricep (R), Patella (L), Patella (R), Achilles (L), Achilles (R) Psychiatric: Alert, Normal Affect, Normal Mood Problem List Initiated/Reviewed/Updated: Yes Orders Last 24hrs: Active Orders 24 hr Category Date Time Status Patient Status [ADT] Routine ADT 01/07/21 15:40 Ordered Blood Glucose Check, Bedside [RC] WITHMEALSANDBED Care 01/07/21 15:40 Ordered Up to Chair [RC] ASDIRECTED Care 01/07/21 15:40 Ordered Vital Signs [RC] Q4H Care 01/07/21 15:40 Ordered OT Evaluation and Treatment [CONS] Routine Cons 01/07/21 15:40 Ordered PT Evaluation and Treatment [CONS] Routine Cons 01/07/21 15:40 Ordered Consistent Carbohydrate Diet [DIET] Diet 01/07/21 Lunch Ordered CBC WITH AUTO DIFF [HEME] Routine Lab 01/07/21 15:43 Ordered COMPREHENSIVE METABOLIC PN,CMP [CHEM] Routine Lab 01/07/21 15:42 Ordered FERRITIN [CHEM] Routine Lab 01/07/21 15:43 Ordered INR,PT,PROTHROMBIN TIME [COAG] Routine Lab 01/07/21 15:43 Ordered IRON/TIBC [CHEM] Routine Lab 01/07/21 15:43 Ordered OCCULT BLOOD DIAGNOSTIC [OP] Routine Lab 01/07/21 15:43 Ordered PTT,PARTIAL THROMBOPLSTIN TIME [COAG] Routine Lab 01/07/21 15:43 Ordered Acetaminophen [TylenoL] Med 01/07/21 15:40 Ordered 650 mg PO Q4H PRN Aspirin [Ecotrin] Med 01/08/21 09:00 Ordered 325 mg PO DAILY Dextrose 50% in Water Med 01/07/21 15:26 Ordered 50 ml IVPUSH Q15M PRN Dextrose 50% in Water Med 01/07/21 15:43 Ordered 50 ml IVPUSH Q15M PRN Gabapentin [Neurontin] Med 01/07/21 21:00 Ordered 600 mg PO BID Glimepiride Med 01/07/21 18:00 Ordered 4 mg PO BIDMEALS Glucagon,Human Recombinant [GlucaGen] Med 01/07/21 15:26 Ordered 1 mg IM Q15M PRN Glucagon,Human Recombinant [GlucaGen] Med 01/07/21 15:43 Ordered 1 mg IM Q15M PRN Heparin Sodium Med 01/07/21 21:00 Ordered 5,000 units SUBCUT Q12HR Insulin Glarg,Human.Rec.Analog [LantUS] Med 01/07/21 21:00 Ordered 24 unit SUBCUT BEDTIME Insulin Lispro [HumaLOG] Med 01/07/21 18:00 Ordered See Protocol SUBCUT WITHMEALSANDBED Levothyroxine Med 01/08/21 06:00 Ordered 125,000 mcg PO ACBREAKFAST Lidocaine 5% [Lidoderm 5%] Med 01/07/21 21:00 Ordered 700 mg TOP Q12HR Multivitamin [Multi-Vitamin Daily] Med 01/08/21 09:00 Ordered 1 tab PO DAILY Ondansetron [Zofran ODT] Med 01/07/21 15:40 Ordered 4 mg PO Q4H PRN Pantoprazole [ProTONIX] Med 01/07/21 18:00 Ordered 40 mg PO WITHDINNER Remove Patch Med 01/07/21 21:00 Ordered DOSE ea TOP Q12HR Semaglutide [Ozempic] Med 01/07/21 15:30 Ordered 0.5 mg SUBCUT .ONCE WEEKLY Simvastatin [Simvastatin] Med 01/07/21 18:00 Ordered 40 mg PO WITHDINNER SitaGLIPtin Med 01/08/21 09:00 Ordered 50 mg PO DAILY Tamsulosin [Flomax] Med 01/07/21 18:00 Ordered 0.4 mg PO WITHDINNER allopurinoL [Zyloprim] Med 01/07/21 18:00 Ordered 150 mg PO WITHDINNER carvediloL [Coreg] Med 01/07/21 21:00 Ordered 6.25 mg PO BID oxyCODONE Med 01/07/21 15:26 Ordered 5 mg PO Q8HR PRN Resuscitation Status Routine Resus Stat 01/07/21 15:40 Ordered Medication Orders Acetaminophen (Acetaminophen 325 Mg Tab) 650 mg PO Q4H PRN PRN Reason: Pain (Mild 1-3)/fever Allopurinol (Allopurinol 300 Mg Tab) 150 mg PO WITHDINNER [facility] Aspirin (Aspirin 325 Mg Tab.Ec) 325 mg PO DAILY [facility] Carvedilol (Carvedilol 6.25 Mg Tab) 6.25 mg PO BID [facility] Dextrose/Water (50% Dextrose In Water 50 Ml Syringe) 50 ml IVPUSH Q15M PRN PRN Reason: Hypoglycemia Gabapentin (Gabapentin 300 Mg Cap) 600 mg PO BID [facility] Glucagon (Glucagon,Human Recombinant 1 Mg Vial) 1 mg IM Q15M PRN PRN Reason: Hypoglycemia Heparin Sodium (Porcine) (Heparin Sodium 5,000 Units/Ml Vial) 5,000 units SUBCUT Q12HR [facility] Insulin Glargine (Insulin Glarg,Human.Rec.Analog 100 Unit/Ml) 24 unit SUBCUT BEDTIME [facility] Levothyroxine Sodium (Levothyroxine 125 Mcg Tab) 125,000 mcg PO ACBREAKFAST [facility] Lidocaine (Lidocaine 5% 700 Mg Patch) 700 mg TOP Q12HR [facility] Miscellaneous Information (Remove Patch) ea TOP Q12HR [facility] Non-Formulary Medication (Sitagliptin) 50 mg PO DAILY [facility] Non-Formulary Medication (Simvastatin [Simvastatin]) 40 mg PO WITHDINNER [facility] Non-Formulary Medication (Semaglutide [Ozempic]) 0.5 mg SUBCUT .ONCE WEEKLY [facility] Non-Formulary Medication (Glimepiride) 4 mg PO BIDMEALS [facility] Non-Formulary Medication (Multivitamin [Multi-Vitamin Daily]) 1 tab PO DAILY [facility] Ondansetron HCl (Ondansetron 4 Mg Tab.Dis) 4 mg PO Q4H PRN PRN Reason: nausea, able to take PO Oxycodone HCl (Oxycodone 5 Mg Tab) 5 mg PO Q8HR PRN PRN Reason: Pain (severe 7-10) Pantoprazole Sodium (Pantoprazole 40 Mg Tab.Cr) [facility] Tamsulosin HCl (Tamsulosin 0.4 Mg Cap.Er) 0.4 mg [facility] Assessment/Plan Comment:: Surgical History: At outside hospital on December 31, 2020: Right long gamma nail fixation for right intertrochanteric fracture. Previous surgeries: Tonsillectomy, adenoidectomy, bilateral cataract surgery Family History: Cancer, diabetes, hypertension, hyperlipidemia Social History: Tobacco: Former smoker Alcohol: Occasional Caffeine: Coffee Drugs: Never Allergies: Patient has documented allergy to quinapril which causes cough, however the patient is uncertain of this and cannot recall this Code Status: Full Assessment / Plan: Admission to swing bed status post right long gamma nail fixation of right intertrochanteric fracture. As needed analgesia. Lidocaine 5% patch to be applied affected area for 12 hours daily. Physical therapy. Occupational Therapy Hypothyroidism. Synthroid 100.5 mcg p.o. daily Seasonal allergies Gout. Allopurinol 150 mg p.o. daily Neuropathy. Gabapentin 6 mg p.o. twice daily History of TIA. Aspirin 320 mg p.o. daily Zocor 40 mg p.o. at bedtime Osteoarthritis Erectile dysfunction BPH. Flomax 0.4 mg p.o. daily Anemia. Monitor hemoglobin level intermittently. Check serum ferritin, iron panel, fecal occult blood COPD Coronary artery disease. Aspirin 325 mg p.o. daily plus Coreg 6.25 mg p.o. twice daily Po Zocor 40 mg p.o. nightly Diabetes. Will check Annmarie glucose before every meal and at bedtime and provide sulci scale plus glimepiride 4 mg p.o. twice daily plus Lantus 24 units subcutaneously nightly plus Januvia 50 mg p.o. daily plus Ozempic 0.5 mg subcutaneously every 4 weeks GERD. Protonix 40 mg p.o. nightly Hyperlipidemia. Zocor 40 mg p.o. nightly Hypertension. Coreg 6.25 mg p.o. twice daily Obesity. Patient be counseled regarding lifestyle education Chronic kidney disease, baseline creatinine as documented at our facility ranges between 2 and 3.6. Will monitor creatinine level intermittently Chronic pain History nephrolithiasis Degenerative disc disease Diverticulosis DVT prophylaxis. Heparin 5000 units subcutaneously every 12 hours Disposition: END OF DOCTOR EMAMIS HISTORY AND PHYSICAL / CONSULTATION NOTE
[2021-01-07] MEDS: Pantoprazole 40 MG Tab.CR PO SCH (17:12)
[2021-01-07] MEDS: Carvedilol 6.25 MG Tab PO SCH (17:47)
[2021-01-07] MEDS: Simvastatin 40 MG Tab PO SCH (17:47)
[2021-01-07] MEDS: Glimepiride 2 MG Tab PO SCH (17:47)
[2021-01-07] MEDS: Tamsulosin 0.4 MG Cap.ER PO SCH (17:47)
[2021-01-07] MEDS: Allopurinol 300 MG Tab PO SCH (17:48)
[2021-01-07] MEDS: Insulin Lispro 100 Units/ML 3 ML Vial SUBCUT SCH ×2 (17:48→21:38)
[2021-01-07 18:39] LABS: ANION GAP 10.4 mEq/L (7-13)
[2021-01-07 18:40] LABS: PTT,PARTIAL THROMBOPLSTIN TIME 23.8 SEC (22.0-34.0)
[2021-01-07] MEDS ORDERED: Insulin Glarg,Human.Rec.Analog 100 Unit/ML SUBCUT SCH (21:00)
[2021-01-07] MEDS: Gabapentin 300 MG Cap PO SCH (21:29)
[2021-01-07] MEDS: Heparin Sodium 5,000 Units/ML Vial SUBCUT SCH (21:31)
[2021-01-07] MEDS: INSULIN GLARG HUMAN REC ANALOG 100 UNIT/ML SUBCUT SCH (21:41)
[2021-01-07] MEDS: oxyCODONE 5 MG Tab PO PRN (22:01)
[2021-01-08] MEDS: Levothyroxine 125 MCG Tab PO SCH (05:20)
[2021-01-08] MEDS: Insulin Lispro 100 Units/ML 3 ML Vial SUBCUT SCH ×4 (09:46→21:23)
[2021-01-08] MEDS: oxyCODONE 5 MG Tab PO PRN (09:48)
[2021-01-08] MEDS: Ascorbic Acid 500 MG Tab PO SCH (09:49)
[2021-01-08] MEDS: Gabapentin 300 MG Cap PO SCH ×2 (09:50→21:22)
[2021-01-08] MEDS: Glimepiride 2 MG Tab PO SCH ×2 (09:51→17:42)
[2021-01-08] MEDS: Aspirin 325 MG Tab.EC PO SCH (09:51)
[2021-01-08] MEDS: Carvedilol 6.25 MG Tab PO SCH ×2 (09:52→17:43)
[2021-01-08] MEDS: Ferrous Sulfate 325 MG Tab PO SCH ×2 (09:52→17:49)
[2021-01-08] MEDS: Lidocaine 5% 700 MG Patch TOP SCH (09:54)
[2021-01-08] MEDS: Heparin Sodium 5,000 Units/ML Vial SUBCUT SCH ×2 (09:54→21:28)
[2021-01-08] MEDS: Multivitamin Tab PO SCH (10:30)
[2021-01-08] MEDS: SEMAGLUTIDE 2 MG/1.5 ML SUBCUT SCH (13:47)
[2021-01-08] MEDS: Tamsulosin 0.4 MG Cap.ER PO SCH (17:41)
[2021-01-08] MEDS: Allopurinol 300 MG Tab PO SCH (17:41)
[2021-01-08] MEDS: Pantoprazole 40 MG Tab.CR PO SCH (17:42)
[2021-01-08] MEDS: Simvastatin 40 MG Tab PO SCH (17:42)
[2021-01-08] MEDS: INSULIN GLARG HUMAN REC ANALOG 100 UNIT/ML SUBCUT SCH (21:26)
[2021-01-09] MEDS: Levothyroxine 125 MCG Tab PO SCH (05:29)
[2021-01-09] MEDS: Aspirin 325 MG Tab.EC PO SCH (08:28)
[2021-01-09] MEDS: Ascorbic Acid 500 MG Tab PO SCH (08:28)
[2021-01-09] MEDS: oxyCODONE 5 MG Tab PO PRN ×2 (08:29→20:57)
[2021-01-09] MEDS: Glimepiride 2 MG Tab PO SCH ×2 (08:31→17:51)
[2021-01-09] MEDS: Gabapentin 300 MG Cap PO SCH ×2 (08:32→20:57)
[2021-01-09] MEDS: Ferrous Sulfate 325 MG Tab PO SCH ×2 (08:32→17:19)
[2021-01-09] MEDS: Carvedilol 6.25 MG Tab PO SCH ×2 (08:32→17:22)
[2021-01-09] MEDS: Multivitamin Tab PO SCH (08:32)
[2021-01-09] MEDS: Heparin Sodium 5,000 Units/ML Vial SUBCUT SCH ×2 (08:34→21:06)
[2021-01-09] MEDS: Insulin Lispro 100 Units/ML 3 ML Vial SUBCUT SCH ×4 (08:35→21:06)
[2021-01-09] MEDS: Lidocaine 5% 700 MG Patch TOP SCH (08:35)
[2021-01-09] MEDS: SITAGLIPTIN 100 MG PO SCH (13:35)
[2021-01-09] MEDS: Pantoprazole 40 MG Tab.CR PO SCH (17:19)
[2021-01-09] MEDS: Tamsulosin 0.4 MG Cap.ER PO SCH (17:19)
[2021-01-09] MEDS: Allopurinol 300 MG Tab PO SCH (17:20)
[2021-01-09] MEDS: Simvastatin 40 MG Tab PO SCH (17:20)
[2021-01-09] MEDS: INSULIN GLARG HUMAN REC ANALOG 100 UNIT/ML SUBCUT SCH (21:02)
[2021-01-10] MEDS: Levothyroxine 125 MCG Tab PO SCH (05:50)
[2021-01-10] MEDS: Heparin Sodium 5,000 Units/ML Vial SUBCUT SCH ×2 (08:20→20:35)
[2021-01-10] MEDS: Multivitamin Tab PO SCH (08:20)
[2021-01-10] MEDS: Glimepiride 2 MG Tab PO SCH ×2 (08:20→18:04)
[2021-01-10] MEDS: Insulin Lispro 100 Units/ML 3 ML Vial SUBCUT SCH ×4 (08:21→21:15)
[2021-01-10] MEDS: Ferrous Sulfate 325 MG Tab PO SCH ×2 (08:21→18:05)
[2021-01-10] MEDS: Ascorbic Acid 500 MG Tab PO SCH (08:21)
[2021-01-10] MEDS: Aspirin 325 MG Tab.EC PO SCH (08:21)
[2021-01-10] MEDS: Gabapentin 300 MG Cap PO SCH ×2 (08:21→20:35)
[2021-01-10] MEDS: Carvedilol 6.25 MG Tab PO SCH ×2 (08:21→18:05)
[2021-01-10] MEDS: Lidocaine 5% 700 MG Patch TOP SCH (08:24)
[2021-01-10] MEDS: SITAGLIPTIN 100 MG PO SCH (08:32)
[2021-01-10] MEDS: oxyCODONE 5 MG Tab PO PRN (09:33)
[2021-01-10] MEDS: Allopurinol 300 MG Tab PO SCH (18:04)
[2021-01-10] MEDS: Simvastatin 40 MG Tab PO SCH (18:05)
[2021-01-10] MEDS: Tamsulosin 0.4 MG Cap.ER PO SCH (18:05)
[2021-01-10] MEDS: Pantoprazole 40 MG Tab.CR PO SCH (18:05)
[2021-01-10] MEDS: Acetaminophen 325 MG Tab PO PRN (21:33)
[2021-01-10] MEDS: INSULIN GLARG HUMAN REC ANALOG 100 UNIT/ML SUBCUT SCH (21:34)
[2021-01-11] MEDS: Levothyroxine 125 MCG Tab PO SCH (06:02)
[2021-01-11] MEDS: Lidocaine 5% 700 MG Patch TOP SCH (09:16)
[2021-01-11] MEDS: oxyCODONE 5 MG Tab PO PRN (09:17)
[2021-01-11] MEDS: Insulin Lispro 100 Units/ML 3 ML Vial SUBCUT SCH ×4 (09:23→20:40)
[2021-01-11] MEDS: Heparin Sodium 5,000 Units/ML Vial SUBCUT SCH ×2 (09:23→20:40)
[2021-01-11] MEDS: Ferrous Sulfate 325 MG Tab PO SCH ×2 (09:25→17:57)
[2021-01-11] MEDS: Gabapentin 300 MG Cap PO SCH ×2 (09:25→20:40)
[2021-01-11] MEDS: Carvedilol 6.25 MG Tab PO SCH ×2 (09:25→17:58)
[2021-01-11] MEDS: Aspirin 325 MG Tab.EC PO SCH (09:25)
[2021-01-11] MEDS: Multivitamin Tab PO SCH (09:26)
[2021-01-11] MEDS: Glimepiride 2 MG Tab PO SCH ×2 (09:26→17:57)
[2021-01-11] MEDS: Ascorbic Acid 500 MG Tab PO SCH (09:26)
[2021-01-11] MEDS: SITAGLIPTIN 100 MG PO SCH (09:26)
[2021-01-11] MEDS: Acetaminophen 325 MG Tab PO PRN (12:45)
[2021-01-11] MEDS: Pantoprazole 40 MG Tab.CR PO SCH (16:52)
[2021-01-11] MEDS: Allopurinol 300 MG Tab PO SCH (17:56)
[2021-01-11] MEDS: Tamsulosin 0.4 MG Cap.ER PO SCH (17:57)
[2021-01-11] MEDS: Simvastatin 40 MG Tab PO SCH (17:58)
[2021-01-11] MEDS: INSULIN GLARG HUMAN REC ANALOG 100 UNIT/ML SUBCUT SCH (20:41)
[2021-01-12] MEDS: Levothyroxine 125 MCG Tab PO SCH (06:17)
[2021-01-12] MEDS: Ascorbic Acid 500 MG Tab PO SCH (08:23)
[2021-01-12] MEDS: Glimepiride 2 MG Tab PO SCH ×2 (08:24→17:00)
[2021-01-12] MEDS: Aspirin 325 MG Tab.EC PO SCH (08:24)
[2021-01-12] MEDS: Heparin Sodium 5,000 Units/ML Vial SUBCUT SCH ×2 (08:24→20:50)
[2021-01-12] MEDS: Ferrous Sulfate 325 MG Tab PO SCH ×2 (08:24→17:01)
[2021-01-12] MEDS: Multivitamin Tab PO SCH (08:24)
[2021-01-12] MEDS: Insulin Lispro 100 Units/ML 3 ML Vial SUBCUT SCH ×4 (09:09→20:43)
[2021-01-12] MEDS: Carvedilol 6.25 MG Tab PO SCH ×2 (10:13→17:00)
[2021-01-12] MEDS: SITAGLIPTIN 100 MG PO SCH (10:14)
[2021-01-12] MEDS: Gabapentin 300 MG Cap PO SCH ×2 (10:14→20:43)
[2021-01-12] MEDS: Lidocaine 5% 700 MG Patch TOP SCH (10:16)
[2021-01-12] MEDS: Nystatin Topical Powder 30 GM Bottle TOP SCH ×2 (14:53→20:52)
[2021-01-12] MEDS: Allopurinol 300 MG Tab PO SCH (16:59)
[2021-01-12] MEDS: Tamsulosin 0.4 MG Cap.ER PO SCH (16:59)
[2021-01-12] MEDS: Pantoprazole 40 MG Tab.CR PO SCH (16:59)
[2021-01-12] MEDS: Simvastatin 40 MG Tab PO SCH (17:00)
[2021-01-12] MEDS: INSULIN GLARG HUMAN REC ANALOG 100 UNIT/ML SUBCUT SCH (20:47)
[2021-01-13] MEDS: Levothyroxine 125 MCG Tab PO SCH (07:46)
[2021-01-13] MEDS: Insulin Lispro 100 Units/ML 3 ML Vial SUBCUT SCH ×4 (08:31→21:10)
[2021-01-13] MEDS: Glimepiride 2 MG Tab PO SCH ×2 (09:49→18:03)
[2021-01-13] MEDS: Ferrous Sulfate 325 MG Tab PO SCH ×2 (09:50→18:04)
[2021-01-13] MEDS: Multivitamin Tab PO SCH (09:50)
[2021-01-13] MEDS: Carvedilol 6.25 MG Tab PO SCH ×2 (09:50→18:04)
[2021-01-13] MEDS: Gabapentin 300 MG Cap PO SCH ×2 (09:50→21:06)
[2021-01-13] MEDS: Aspirin 325 MG Tab.EC PO SCH (09:50)
[2021-01-13] MEDS: Ascorbic Acid 500 MG Tab PO SCH (09:52)
[2021-01-13] MEDS: Heparin Sodium 5,000 Units/ML Vial SUBCUT SCH ×2 (09:53→21:14)
[2021-01-13] MEDS: Lidocaine 5% 700 MG Patch TOP SCH (09:54)
[2021-01-13] MEDS: Nystatin Topical Powder 30 GM Bottle TOP SCH ×2 (09:58→21:15)
[2021-01-13] MEDS: SITAGLIPTIN 100 MG PO SCH (10:08)
[2021-01-13] MEDS: Tamsulosin 0.4 MG Cap.ER PO SCH (18:03)
[2021-01-13] MEDS: Pantoprazole 40 MG Tab.CR PO SCH (18:03)
[2021-01-13] MEDS: Simvastatin 40 MG Tab PO SCH (18:04)
[2021-01-13] MEDS: Allopurinol 300 MG Tab PO SCH (18:04)
[2021-01-13] MEDS: INSULIN GLARG HUMAN REC ANALOG 100 UNIT/ML SUBCUT SCH (21:12)
[2021-01-13] MEDS: Acetaminophen 325 MG Tab PO PRN (21:24)
[2021-01-14] MEDS: Levothyroxine 125 MCG Tab PO SCH (05:28)
--- NOTE | 2021-01-14 07:06 | PCM.PN ---
- General Info Date of Service: 01/14/21 Subjective Update: At the present time the patient endorses no complaints. He denies fever, rigors, nausea, vomiting, cough, wheeze, abdominal pain, chest pain, dyspnea, lightheadedness, dizziness. He indicates that his right hip pain is well controlled when he request as needed analgesia. He denies pain at this moment but he states that he does feel a mild to moderate amount with physical activity. The patient indicates that he has been eating adequately and is having regular bowel movements. He is satisfied with his progress with physical therapy. I explained to the patient his current medical condition and plan of care and I have answered all of his questions Functional Status: Reports: Pain Controlled - Review of Systems General: Reports: No Symptoms HEENT: Reports: No Symptoms Pulmonary: Reports: No Symptoms Cardiovascular: Reports: No Symptoms Gastrointestinal: Reports: No Symptoms Genitourinary: Reports: No Symptoms Musculoskeletal: Reports: No Symptoms Skin: Reports: No Symptoms Neurological: Reports: No Symptoms Psychiatric: Reports: No Symptoms - Patient Data Vitals - Most Recent: Last Vital Signs Temp 97.7 F 01/13/21 20:00 Pulse 90 01/13/21 20:00 Resp 20 01/13/21 20:00 BP 110/66 01/13/21 20:00 Pulse Ox 100 01/13/21 20:00 Weight - Most Recent: 222 lb 4.8 oz I&O - Last 24 Hours: Intake & Output 01/13/21 01/14/21 01/14/21 22:59 06:59 14:59 Intake Total 560 600 Output Total 250 850 Balance 310 -250 Lab Results Last 24 Hours: Laboratory Results - last 24 hr 01/13/21 01/13/21 01/13/21 Range/Units 08:01 12:02 16:49 POC Glucose 93 196 H 141 H (70-99) mg/dL 01/13/21 Range/Units 20:53 POC Glucose 214 H (70-99) mg/dL Med Orders - Current: Current Medications Acetaminophen (Acetaminophen 325 Mg Tab) 650 mg PO Q4H PRN PRN Reason: Pain (Mild 1-3)/fever Last Admin: 01/13/21 21:24 Dose: 650 mg Documented by: Allopurinol ([facility] 300 Mg Tab) [facility] Last Admin: 01/13/21 18:04 Dose: 150 mg Documented by: Ascorbic Acid (Ascorbic Acid 500 Mg Tab) 250 mg PO [facility]ILY [facility] Last Admin: 01/13/21 09:52 Dose: 250 mg Documented by: Aspirin (Aspirin 325 Mg Tab.Ec) 325 mg PO [facility]ILY [facility] Last Admin: 01/13/21 09:50 Dose: 325 mg Documented by: Carvedilol (Carvedilol 6.25 Mg Tab) 6.25 mg PO [facility]MEALS [facility] Last Admin: 01/13/21 18:04 Dose: 6.25 mg Documented by: Dextrose/Water (50% Dextrose In Water 50 Ml Syringe) 50 ml IVPUSH Q15M PRN PRN Reason: Hypoglycemia Ferrous Sulfate (Ferrous Sulfate 325 Mg Tab) 325 mg PO [facility]MEALS [facility] Last Admin: 01/13/21 18:04 Dose: 325 mg Documented by: Gabapentin (Gabapentin 300 Mg Cap) 300 mg PO BID [facility] Last Admin: 01/13/21 21:06 Dose: 300 mg Documented by: Glimepiride (Glimepiride 2 Mg Tab) 4 mg PO [facility] Last Admin: 01/13/21 18:03 Dose: 4 mg Documented by: Glucagon (Glucagon,Human Recombinant 1 Mg Vial) 1 mg IM Q15M PRN PRN Reason: Hypoglycemia Heparin Sodium (Porcine) (Heparin Sodium 5,000 Units/Ml Vial) 5,000 units SUBCUT Q12HR [facility] Last Admin: 01/13/21 21:14 Dose: 5,000 units Documented by: Insulin Glargine (Insulin Glarg,Human.Rec.Analog 100 Unit/Ml PenOwn Med) 24 unit SUBCUT BEDTIME [facility] Last Admin: 01/13/21 21:12 Dose: 24 units Documented by: Insulin Human Lispro (Insulin Lispro 100 Units/Ml 3 Ml Vial) 0 unit [facility]; Protocol Last Admin: 01/13/21 21:10 Dose: 2 units Documented by: Levothyroxine Sodium (Levothyroxine 125 Mcg Tab) 125 mcg [facility] Last Admin: 01/14/21 05:28 Dose: 125 mcg Documented by: Lidocaine (Lidocaine 5% 700 Mg Patch) 700 mg TOP [facility]ILY [facility] Last Admin: 01/13/21 09:54 Dose: 700 mg Documented by: Magnesium Hydroxide (Magnesium Hydroxide 400 Mg/5 Ml Susp 30 Ml Cup) 30 ml PO Q12H PRN PRN Reason: Constipation Miscellaneous Information (Remove Lidocaine Patch) 1 ea TOP [facility] Last Admin: 01/13/21 21:27 Dose: Not Given Documented by: Multivitamins/Minerals/Vitamin C (Multivitamin Tab) 1 tab PO DAILY [facility] Last Admin: 01/13/21 09:50 Dose: 1 tab Documented by: Nystatin (Nystatin Topical Powder 30 Gm Bottle) 0 gm TOP BID [facility] Last Admin: 01/13/21 21:15 Dose: 1 applic Documented by: Ondansetron HCl (Ondansetron 4 Mg Tab.Dis) 4 mg PO Q4H PRN PRN Reason: nausea, able to take PO Oxycodone HCl (Oxycodone 5 Mg Tab) 5 mg PO Q8HR PRN PRN Reason: Pain (severe 7-10) Last Admin: 01/11/21 09:17 Dose: 5 mg Documented by: Pantoprazole Sodium (Pantoprazole 40 Mg Tab.Cr) [facility] Last Admin: 01/13/21 18:03 Dose: 40 mg Documented by: Sitagliptin (Januvia ) 100 Mg Tablet Pt Own Med 0 each PO DAILY [facility] Last Admin: 01/13/21 10:08 Dose: 1 each Documented by: Semaglutide [Ozempic ] 2 Mg/1.5 Ml Pen. Injctr Pt Own Med* * 0 each SUBCUT Tu@0900 [facility] Last Admin: 01/08/21 13:47 Dose: 1 each Documented by: Senna/Docusate Sodium (Docusate Sodium/Sennosides 50-8.6 Mg Tab) 1 tab PO Q12H [facility] Last Admin: 01/13/21 21:06 Dose: 1 tab Documented by: Simvastatin (Simvastatin 40 Mg Tab) 40 mg PO [facility] Last Admin: 01/13/21 18:04 Dose: 40 mg Documented by: Tamsulosin HCl (Tamsulosin 0.4 Mg Cap.Er) 0.4 mg PO [facility] Last Admin: 01/13/21 18:03 Dose: 0.4 mg Documented by: Discontinued Medications Gabapentin (Gabapentin 300 Mg Cap) 600 mg PO BID [facility] Last Admin: 01/08/21 09:50 Dose: 600 mg Documented by: Insulin Glargine (Insulin Glarg,Human.Rec.Analog 100 Unit/Ml) 24 unit SUBCUT BEDTIME [facility] - Exam General: Alert, Oriented HEENT: Pupils Equal, Pupils Reactive, EOMI, Mucous Membr. Moist/[place] Neck: Supple Lungs: Clear to Auscultation, Normal Respiratory Effort Cardiovascular: Regular Rate, Regular Rhythm GI/Abdominal Exam: Normal Bowel Sounds Back Exam: Normal Inspection, Full Range of Motion Extremities: Normal Inspection, Normal Range of Motion, Non-Tender, No Pedal Edema, Normal Capillary Refill Peripheral Pulses: 2+: Carotid (L), Carotid (R), Brachial (L), Brachial (R), Radial (L), Radial (R), Femoral (L), Femoral (R), Popliteal (L), Popliteal (R), Posterior Tibial (L), Posterior Tibial (R), Dorsalis Pedis (L), Dorsalis Pedis (R) Skin: Warm Wound/Incisions: Healing Well Neurological: No New Focal Deficit Psy/Mental Status: Alert, Normal Affect, Normal Mood - Patient Data Lab Results Last 24 hrs: Laboratory Results - last 24 hr 01/13/21 01/13/21 01/13/21 Range/Units 08:01 12:02 16:49 POC Glucose 93 196 H 141 H (70-99) mg/dL 01/13/21 Range/Units 20:53 POC Glucose 214 H (70-99) mg/dL Result Diagrams: 01/08/21 06:00 01/07/21 18:15 Sepsis Event Note - Evaluation Sepsis Screening Result: No Definite Risk - Focused Exam Vital Signs: Vital Signs Temp Pulse Resp BP Pulse Ox 01/13/21 20:00 97.7 F 90 20 110/66 100 - Problem List Review Problem List Initiated/Reviewed/Updated: Yes - Plan Plan:: Surgical History: At outside hospital on December 31, 2020: Right long gamma nail fixation for right intertrochanteric fracture. Previous surgeries: Tonsillectomy, adenoidectomy, bilateral cataract surgery Family History: Cancer, diabetes, hypertension, hyperlipidemia Social History: Tobacco: Former smoker Alcohol: Occasional Caffeine: Coffee Drugs: Never Allergies: Patient has documented allergy to quinapril which causes cough, however the patient is uncertain of this and cannot recall this Code Status: Full Assessment / Plan: Admission to swing bed status post right long gamma nail fixation of right intertrochanteric fracture. As needed analgesia. Lidocaine 5% patch to be applied affected area for 12 hours daily. Physical therapy. Occupational Therapy Hypothyroidism. Synthroid 100.5 mcg p.o. daily Seasonal allergies Gout. Allopurinol 150 mg p.o. daily Neuropathy. Gabapentin 300 mg p.o. twice daily History of TIA. Aspirin 320 mg p.o. daily Zocor 40 mg p.o. at bedtime Osteoarthritis Erectile dysfunction BPH. Flomax 0.4 mg p.o. daily Iron deficiency anemia. Monitor hemoglobin level intermittently. Vitamin C 250 mg p.o. daily plus ferrous sulfate 325 mg p.o. twice daily COPD Coronary artery disease. Aspirin 325 mg p.o. daily plus Coreg 6.25 mg p.o. twice daily Po Zocor 40 mg p.o. nightly Diabetes. Will check Annmarie glucose before every meal and at bedtime and provide sulci scale plus glimepiride 4 mg p.o. twice daily plus Lantus 24 units subcutaneously nightly plus Januvia 50 mg p.o. daily plus Ozempic 0.5 mg subcutaneously every 4 weeks GERD. Protonix 40 mg p.o. nightly Hyperlipidemia. Zocor 40 mg p.o. nightly Hypertension. Coreg 6.25 mg p.o. twice daily Obesity. Patient be counseled regarding lifestyle education Chronic kidney disease, baseline creatinine as documented at our facility ranges between 2 and 3.6. Will monitor creatinine level intermittently Chronic pain History nephrolithiasis Degenerative disc disease Diverticulosis GI prophylaxis. Senna plus: 1 tab p.o. twice daily DVT prophylaxis. Heparin 5000 units subcutaneously every 12 hours Disposition: END OF DOCTOR [facility] HISTORY AND PHYSICAL / CONSULTATION NOTE
[2021-01-14] MEDS: Aspirin 325 MG Tab.EC PO SCH (08:19)
[2021-01-14] MEDS: Gabapentin 300 MG Cap PO SCH ×2 (08:19→20:36)
[2021-01-14] MEDS: Glimepiride 2 MG Tab PO SCH ×2 (08:19→17:11)
[2021-01-14] MEDS: Carvedilol 6.25 MG Tab PO SCH ×2 (08:20→17:11)
[2021-01-14] MEDS: Heparin Sodium 5,000 Units/ML Vial SUBCUT SCH ×2 (08:21→20:35)
[2021-01-14] MEDS: Ferrous Sulfate 325 MG Tab PO SCH ×2 (08:21→17:12)
[2021-01-14] MEDS: Ascorbic Acid 500 MG Tab PO SCH (08:21)
[2021-01-14] MEDS: Multivitamin Tab PO SCH (08:21)
[2021-01-14] MEDS: SITAGLIPTIN 100 MG PO SCH (08:22)
[2021-01-14] MEDS: Insulin Lispro 100 Units/ML 3 ML Vial SUBCUT SCH ×4 (08:24→20:30)
[2021-01-14] MEDS: Lidocaine 5% 700 MG Patch TOP SCH (08:25)
[2021-01-14] MEDS: Nystatin Topical Powder 30 GM Bottle TOP SCH ×2 (08:26→20:34)
[2021-01-14] MEDS: oxyCODONE 5 MG Tab PO PRN (09:49)
[2021-01-14] MEDS: Allopurinol 300 MG Tab PO SCH (17:10)
[2021-01-14] MEDS: Tamsulosin 0.4 MG Cap.ER PO SCH (17:10)
[2021-01-14] MEDS: Pantoprazole 40 MG Tab.CR PO SCH (17:11)
[2021-01-14] MEDS: Simvastatin 40 MG Tab PO SCH (17:11)
[2021-01-14] MEDS: INSULIN GLARG HUMAN REC ANALOG 100 UNIT/ML SUBCUT SCH (20:32)
[2021-01-14] MEDS: Acetaminophen 325 MG Tab PO PRN (20:37)
[2021-01-15] MEDS: Levothyroxine 125 MCG Tab PO SCH (06:20)
[2021-01-15] MEDS: Ferrous Sulfate 325 MG Tab PO SCH ×2 (09:01→17:36)
[2021-01-15] MEDS: Carvedilol 6.25 MG Tab PO SCH ×2 (09:02→17:37)
[2021-01-15] MEDS: Glimepiride 2 MG Tab PO SCH ×2 (09:03→17:37)
[2021-01-15] MEDS: Gabapentin 300 MG Cap PO SCH ×2 (09:03→20:36)
[2021-01-15] MEDS: Aspirin 325 MG Tab.EC PO SCH (09:04)
[2021-01-15] MEDS: Multivitamin Tab PO SCH (09:04)
[2021-01-15] MEDS: Ascorbic Acid 500 MG Tab PO SCH (09:05)
[2021-01-15] MEDS: Heparin Sodium 5,000 Units/ML Vial SUBCUT SCH ×2 (09:06→20:44)
[2021-01-15] MEDS: Insulin Lispro 100 Units/ML 3 ML Vial SUBCUT SCH ×4 (09:06→20:40)
[2021-01-15] MEDS: Lidocaine 5% 700 MG Patch TOP SCH (09:07)
[2021-01-15] MEDS: Nystatin Topical Powder 30 GM Bottle TOP SCH ×2 (09:07→20:36)
[2021-01-15] MEDS: SITAGLIPTIN 100 MG PO SCH (09:08)
[2021-01-15] MEDS: SEMAGLUTIDE 2 MG/1.5 ML SUBCUT SCH (09:09)
[2021-01-15] MEDS: Acetaminophen 325 MG Tab PO PRN (09:45)
[2021-01-15] MEDS: oxyCODONE 5 MG Tab PO PRN ×2 (09:46→19:56)
[2021-01-15] MEDS: Allopurinol 300 MG Tab PO SCH (17:36)
[2021-01-15] MEDS: Tamsulosin 0.4 MG Cap.ER PO SCH (17:36)
[2021-01-15] MEDS: Simvastatin 40 MG Tab PO SCH (17:36)
[2021-01-15] MEDS: Pantoprazole 40 MG Tab.CR PO SCH (17:37)
[2021-01-15] MEDS: INSULIN GLARG HUMAN REC ANALOG 100 UNIT/ML SUBCUT SCH (20:42)
[2021-01-16] MEDS: Acetaminophen 325 MG Tab PO PRN (02:20)
[2021-01-16] MEDS: Levothyroxine 125 MCG Tab PO SCH (06:01)
[2021-01-16] MEDS: Carvedilol 6.25 MG Tab PO SCH ×2 (08:36→17:48)
[2021-01-16] MEDS: Aspirin 325 MG Tab.EC PO SCH (08:36)
[2021-01-16] MEDS: Multivitamin Tab PO SCH (08:36)
[2021-01-16] MEDS: Glimepiride 2 MG Tab PO SCH ×2 (08:37→17:47)
[2021-01-16] MEDS: Ferrous Sulfate 325 MG Tab PO SCH ×2 (08:38→17:48)
[2021-01-16] MEDS: Gabapentin 300 MG Cap PO SCH ×2 (08:38→20:22)
[2021-01-16] MEDS: Ascorbic Acid 500 MG Tab PO SCH (08:38)
[2021-01-16] MEDS: SITAGLIPTIN 100 MG PO SCH (08:39)
[2021-01-16] MEDS: Heparin Sodium 5,000 Units/ML Vial SUBCUT SCH ×2 (08:39→20:23)
[2021-01-16] MEDS: Nystatin Topical Powder 30 GM Bottle TOP SCH ×2 (08:40→20:28)
[2021-01-16] MEDS: Lidocaine 5% 700 MG Patch TOP SCH (08:40)
[2021-01-16] MEDS: Insulin Lispro 100 Units/ML 3 ML Vial SUBCUT SCH ×4 (08:41→20:49)
[2021-01-16] MEDS: oxyCODONE 5 MG Tab PO PRN ×2 (10:04→20:25)
[2021-01-16] MEDS: Tamsulosin 0.4 MG Cap.ER PO SCH (17:47)
[2021-01-16] MEDS: Simvastatin 40 MG Tab PO SCH (17:48)
[2021-01-16] MEDS: Pantoprazole 40 MG Tab.CR PO SCH (17:48)
[2021-01-16] MEDS: Allopurinol 300 MG Tab PO SCH (17:49)
[2021-01-16] MEDS: INSULIN GLARG HUMAN REC ANALOG 100 UNIT/ML SUBCUT SCH (20:47)
[2021-01-17] MEDS: Levothyroxine 125 MCG Tab PO SCH (05:56)
[2021-01-17] MEDS: Insulin Lispro 100 Units/ML 3 ML Vial SUBCUT SCH ×4 (08:21→21:15)
[2021-01-17] MEDS: Lidocaine 5% 700 MG Patch TOP SCH (08:54)
[2021-01-17] MEDS: Acetaminophen 325 MG Tab PO PRN (08:54)
[2021-01-17] MEDS: Ascorbic Acid 500 MG Tab PO SCH (08:55)
[2021-01-17] MEDS: Multivitamin Tab PO SCH (08:59)
[2021-01-17] MEDS: Gabapentin 300 MG Cap PO SCH ×2 (08:59→21:13)
[2021-01-17] MEDS: Ferrous Sulfate 325 MG Tab PO SCH ×2 (08:59→18:25)
[2021-01-17] MEDS: Carvedilol 6.25 MG Tab PO SCH ×2 (08:59→18:27)
[2021-01-17] MEDS: Heparin Sodium 5,000 Units/ML Vial SUBCUT SCH ×2 (08:59→21:13)
[2021-01-17] MEDS: Aspirin 325 MG Tab.EC PO SCH (08:59)
[2021-01-17] MEDS: Glimepiride 2 MG Tab PO SCH ×2 (08:59→18:25)
[2021-01-17] MEDS: SITAGLIPTIN 100 MG PO SCH (09:01)
[2021-01-17] MEDS: Nystatin Topical Powder 30 GM Bottle TOP SCH ×2 (09:01→21:16)
[2021-01-17] MEDS: Tamsulosin 0.4 MG Cap.ER PO SCH (18:25)
[2021-01-17] MEDS: Allopurinol 300 MG Tab PO SCH (18:26)
[2021-01-17] MEDS: Simvastatin 40 MG Tab PO SCH (18:26)
[2021-01-17] MEDS: Pantoprazole 40 MG Tab.CR PO SCH (18:26)
[2021-01-17] MEDS: INSULIN GLARG HUMAN REC ANALOG 100 UNIT/ML SUBCUT SCH (21:14)
[2021-01-18] MEDS: Levothyroxine 125 MCG Tab PO SCH (05:43)
[2021-01-18] MEDS: Multivitamin Tab PO SCH (09:02)
[2021-01-18] MEDS: Glimepiride 2 MG Tab PO SCH ×2 (09:02→17:10)
[2021-01-18] MEDS: Ferrous Sulfate 325 MG Tab PO SCH ×2 (09:02→17:10)
[2021-01-18] MEDS: Aspirin 325 MG Tab.EC PO SCH (09:02)
[2021-01-18] MEDS: Ascorbic Acid 500 MG Tab PO SCH (09:02)
[2021-01-18] MEDS: Gabapentin 300 MG Cap PO SCH ×2 (09:02→20:51)
[2021-01-18] MEDS: Carvedilol 6.25 MG Tab PO SCH ×2 (09:03→17:10)
[2021-01-18] MEDS: Insulin Lispro 100 Units/ML 3 ML Vial SUBCUT SCH ×4 (09:03→21:02)
[2021-01-18] MEDS: Lidocaine 5% 700 MG Patch TOP SCH (09:04)
[2021-01-18] MEDS: Heparin Sodium 5,000 Units/ML Vial SUBCUT SCH ×2 (09:04→20:54)
[2021-01-18] MEDS: Nystatin Topical Powder 30 GM Bottle TOP SCH ×2 (09:05→20:55)
[2021-01-18] MEDS: SITAGLIPTIN 100 MG PO SCH (09:05)
[2021-01-18] MEDS: Tamsulosin 0.4 MG Cap.ER PO SCH (17:10)
[2021-01-18] MEDS: Simvastatin 40 MG Tab PO SCH (17:11)
[2021-01-18] MEDS: Allopurinol 300 MG Tab PO SCH (17:11)
[2021-01-18] MEDS: Pantoprazole 40 MG Tab.CR PO SCH (17:11)
[2021-01-18] MEDS: oxyCODONE 5 MG Tab PO PRN (20:50)
[2021-01-18] MEDS: INSULIN GLARG HUMAN REC ANALOG 100 UNIT/ML SUBCUT SCH (21:04)
[2021-01-19] MEDS: Levothyroxine 125 MCG Tab PO SCH (05:52)
[2021-01-19] MEDS: Ascorbic Acid 500 MG Tab PO SCH (09:20)
[2021-01-19] MEDS: Multivitamin Tab PO SCH (09:20)
[2021-01-19] MEDS: Gabapentin 300 MG Cap PO SCH ×2 (09:21→20:42)
[2021-01-19] MEDS: Aspirin 325 MG Tab.EC PO SCH (09:21)
[2021-01-19] MEDS: Heparin Sodium 5,000 Units/ML Vial SUBCUT SCH ×2 (09:21→20:43)
[2021-01-19] MEDS: Ferrous Sulfate 325 MG Tab PO SCH ×2 (09:21→18:01)
[2021-01-19] MEDS: Carvedilol 6.25 MG Tab PO SCH ×2 (09:22→18:01)
[2021-01-19] MEDS: Nystatin Topical Powder 30 GM Bottle TOP SCH (09:23)
[2021-01-19] MEDS: SITAGLIPTIN 100 MG PO SCH (09:23)
[2021-01-19] MEDS: Insulin Lispro 100 Units/ML 3 ML Vial SUBCUT SCH ×4 (09:24→20:46)
[2021-01-19] MEDS: Glimepiride 2 MG Tab PO SCH ×2 (09:30→18:00)
[2021-01-19] MEDS: Lidocaine 5% 700 MG Patch TOP SCH (09:31)
[2021-01-19] MEDS: Nystatin Crm 15 GM Tube TOP SCH ×2 (15:48→20:43)
[2021-01-19] MEDS: Tamsulosin 0.4 MG Cap.ER PO SCH (18:00)
[2021-01-19] MEDS: Allopurinol 300 MG Tab PO SCH (18:00)
[2021-01-19] MEDS: Pantoprazole 40 MG Tab.CR PO SCH (18:01)
[2021-01-19] MEDS: Simvastatin 40 MG Tab PO SCH (18:01)
[2021-01-19] MEDS: INSULIN GLARG HUMAN REC ANALOG 100 UNIT/ML SUBCUT SCH (20:45)
[2021-01-19] MEDS: oxyCODONE 5 MG Tab PO PRN (20:55)
[2021-01-20] MEDS: Levothyroxine 125 MCG Tab PO SCH (06:06)
[2021-01-20] MEDS: Lidocaine 5% 700 MG Patch TOP SCH (08:36)
[2021-01-20] MEDS: Ascorbic Acid 500 MG Tab PO SCH (08:37)
[2021-01-20] MEDS: Heparin Sodium 5,000 Units/ML Vial SUBCUT SCH ×2 (08:37→21:14)
[2021-01-20] MEDS: Glimepiride 2 MG Tab PO SCH ×2 (08:37→17:51)
[2021-01-20] MEDS: Gabapentin 300 MG Cap PO SCH ×2 (08:45→21:14)
[2021-01-20] MEDS: Multivitamin Tab PO SCH (08:45)
[2021-01-20] MEDS: Ferrous Sulfate 325 MG Tab PO SCH ×2 (08:45→17:51)
[2021-01-20] MEDS: Aspirin 325 MG Tab.EC PO SCH (08:45)
[2021-01-20] MEDS: Carvedilol 6.25 MG Tab PO SCH ×2 (08:45→17:51)
[2021-01-20] MEDS: Insulin Lispro 100 Units/ML 3 ML Vial SUBCUT SCH ×4 (08:48→21:14)
[2021-01-20] MEDS: Nystatin Crm 15 GM Tube TOP SCH ×2 (08:50→21:25)
[2021-01-20] MEDS: SITAGLIPTIN 100 MG PO SCH (08:51)
[2021-01-20] MEDS: Allopurinol 300 MG Tab PO SCH (17:51)
[2021-01-20] MEDS: Simvastatin 40 MG Tab PO SCH (17:51)
[2021-01-20] MEDS: Tamsulosin 0.4 MG Cap.ER PO SCH (17:51)
[2021-01-20] MEDS: Pantoprazole 40 MG Tab.CR PO SCH (17:51)
[2021-01-20] MEDS: INSULIN GLARG HUMAN REC ANALOG 100 UNIT/ML SUBCUT SCH (21:25)
--- NOTE | 2021-01-21 07:12 | PCM.PN ---
- General Info Date of Service: 01/21/21 Subjective Update: The patient endorses no complaints at this time. He denies fever, rigors, nausea, vomiting, cough, wheeze, abdominal pain, chest pain, dyspnea, or any other constitutional complaints. He states with rest he has 0 out of 10 right hip pain. He states with activity his right hip pain is approximately 4 or 5 however as needed analgesia improves this. He states that he has been eating well and has been having regular bowel movements and he is satisfied with his progress with physical therapy. I explained to the patient his current medical condition and plan of care and have answered all of his questions Functional Status: Reports: Pain Controlled - Review of Systems General: Reports: No Symptoms HEENT: Reports: No Symptoms Pulmonary: Reports: No Symptoms Cardiovascular: Reports: No Symptoms Gastrointestinal: Reports: No Symptoms Genitourinary: Reports: No Symptoms Musculoskeletal: Reports: No Symptoms Skin: Reports: No Symptoms Neurological: Reports: No Symptoms Psychiatric: Reports: No Symptoms - Patient Data Vitals - Most Recent: Last Vital Signs Temp 98.2 F 01/20/21 20:00 Pulse 96 01/20/21 20:00 Resp 16 01/20/21 20:00 BP 137/66 01/20/21 20:00 Pulse Ox 96 01/20/21 20:00 Weight - Most Recent: 211 lb 6.4 oz I&O - Last 24 Hours: Intake & Output 01/20/21 01/21/21 01/21/21 22:59 06:59 14:59 Intake Total 100 100 Output Total 400 Balance -300 100 Lab Results Last 24 Hours: Laboratory Results - last 24 hr 01/20/21 01/20/21 01/20/21 Range/Units 07:32 08:44 11:19 POC Glucose 65 L 133 H 165 H (70-99) mg/dL 01/20/21 01/20/21 Range/Units 17:07 21:10 POC Glucose 234 H 220 H (70-99) mg/dL Med Orders - Current: Current Medications Acetaminophen (Acetaminophen 325 Mg Tab) 650 mg PO Q4H PRN PRN Reason: Pain (Mild 1-3)/fever Last Admin: 01/17/21 08:54 Dose: 650 mg Documented by: Allopurinol (Allopurinol 300 Mg Tab) [facility] Last Admin: 01/20/21 17:51 Dose: 150 mg Documented by: Ascorbic Acid (Ascorbic Acid 500 Mg Tab) 250 mg PO DAILY [facility] Last Admin: 01/20/21 08:37 Dose: 250 mg Documented by: Aspirin (Aspirin 325 Mg Tab.Ec) 325 mg PO DAILY [facility] Last Admin: 01/20/21 08:45 Dose: 325 mg Documented by: Carvedilol (Carvedilol 6.25 Mg Tab) 6.25 mg PO BIDMEALS [facility] Last Admin: 01/20/21 17:51 Dose: 6.25 mg Documented by: Dextrose/Water (50% Dextrose In Water 50 Ml Syringe) 50 ml IVPUSH Q15M PRN PRN Reason: Hypoglycemia Ferrous Sulfate (Ferrous Sulfate 325 Mg Tab) 325 mg PO BIDMEALS [facility] Last Admin: 01/20/21 17:51 Dose: 325 mg Documented by: Gabapentin (Gabapentin 300 Mg Cap) 300 mg PO BID [facility] Last Admin: 01/20/21 21:14 Dose: 300 mg Documented by: Glimepiride (Glimepiride 2 Mg Tab) 4 mg PO BIDMEALS [facility] Last Admin: 01/20/21 17:51 Dose: 4 mg Documented by: Glucagon (Glucagon,Human Recombinant 1 Mg Vial) 1 mg IM Q15M PRN PRN Reason: Hypoglycemia Heparin Sodium (Porcine) (Heparin Sodium 5,000 Units/Ml Vial) 5,000 units SUBCUT Q12HR [facility] Last Admin: 01/20/21 21:14 Dose: 5,000 units Documented by: Insulin Glargine (Insulin Glarg,Human.Rec.Analog 100 Unit/Ml PenOwn Med) 24 unit SUBCUT BEDTIME [facility] Last Admin: 01/20/21 21:25 Dose: 24 units Documented by: Insulin Human Lispro (Insulin Lispro 100 Units/Ml 3 Ml Vial) 0 unit SUBCUT [facility]; Protocol Last Admin: 01/20/21 21:14 Dose: 2 units Documented by: Levothyroxine Sodium (Levothyroxine 125 Mcg Tab) 125 mcg PO ACBREAKFAST [facility] Last Admin: 01/20/21 06:06 Dose: 125 mcg Documented by: Lidocaine (Lidocaine 5% 700 Mg Patch) 700 mg TOP DAILY [facility] Last Admin: 01/20/21 08:36 Dose: 700 mg Documented by: Magnesium Hydroxide (Magnesium Hydroxide 400 Mg/5 Ml Susp 30 Ml Cup) 30 ml PO Q12H PRN PRN Reason: Constipation Miscellaneous Information (Remove Lidocaine Patch) 1 ea TOP BEDTIME [facility] Last Admin: 01/20/21 21:26 Dose: 1 ea Documented by: Multivitamins/Minerals/Vitamin C (Multivitamin Tab) 1 tab PO DAILY [facility] Last Admin: 01/20/21 08:45 Dose: 1 tab Documented by: Nystatin (Nystatin Crm 15 Gm Tube) 0 gm TOP BID [facility] Last Admin: 01/20/21 21:25 Dose: 1 applic Documented by: Ondansetron HCl (Ondansetron 4 Mg Tab.Dis) 4 mg PO Q4H PRN PRN Reason: nausea, able to take PO Oxycodone HCl (Oxycodone 5 Mg Tab) 5 mg PO Q8HR PRN PRN Reason: Pain (severe 7-10) Last Admin: 01/19/21 20:55 Dose: 5 mg Documented by: Pantoprazole Sodium (Pantoprazole 40 Mg Tab.Cr) [facility] Last Admin: 01/20/21 17:51 Dose: 40 mg Documented by: Sitagliptin (Januvia ) 100 Mg Tablet Pt Own Med 0 each PO DAILY [facility] Last Admin: 01/20/21 08:51 Dose: 1 each Documented by: Semaglutide [Ozempic ] 2 Mg/1.5 Ml Pen. Injctr Pt Own Med* * 0 each SUBCUT Tu@0900 [facility] Last Admin: 01/15/21 09:09 Dose: 1 each Documented by: Senna/Docusate Sodium (Docusate Sodium/Sennosides 50-8.6 Mg Tab) 1 tab PO Q12H [facility] Last Admin: 01/20/21 21:14 Dose: 1 tab Documented by: Simvastatin (Simvastatin 40 Mg Tab) [facility] Last Admin: 01/20/21 17:51 Dose: 40 mg Documented by: Tamsulosin HCl (Tamsulosin 0.4 Mg Cap.Er) 0.4 mg PO [facility] Last Admin: 01/20/21 17:51 Dose: 0.4 mg Documented by: Discontinued Medications Gabapentin (Gabapentin 300 Mg Cap) 600 mg PO BID [facility] Last Admin: 01/08/21 09:50 Dose: 600 mg Documented by: Insulin Glargine (Insulin Glarg,Human.Rec.Analog 100 Unit/Ml) 24 unit SUBCUT BEDTIME [facility] Nystatin (Nystatin Topical Powder 30 Gm Bottle) 0 gm TOP BID [facility] Last Admin: 01/19/21 09:23 Dose: 1 applic Documented by: - Exam General: Alert, Oriented HEENT: Pupils Equal, Pupils Reactive, EOMI, Mucous Membr. Moist/[place] Neck: Supple Lungs: Clear to Auscultation, Normal Respiratory Effort Cardiovascular: Regular Rate, Regular Rhythm GI/Abdominal Exam: Normal Bowel Sounds, Soft, Non-Tender, No Organomegaly, No Distention, No Abnormal Bruit, No Mass, Pelvis Stable Back Exam: Normal Inspection, Full Range of Motion Extremities: Normal Inspection, Normal Range of Motion, Non-Tender, No Pedal Edema, Normal Capillary Refill Peripheral Pulses: 2+: Carotid (L), Carotid (R), Brachial (L), Brachial (R), Radial (L), Radial (R), Femoral (L), Femoral (R), Popliteal (L), Popliteal (R), Posterior Tibial (L), Posterior Tibial (R), Dorsalis Pedis (L), Dorsalis Pedis (R) Skin: Warm, Dry, Intact Wound/Incisions: Healing Well Neurological: No New Focal Deficit Psy/Mental Status: Alert, Normal Affect, Normal Mood - Patient Data Lab Results Last 24 hrs: Laboratory Results - last 24 hr 01/20/21 01/20/21 01/20/21 Range/Units 07:32 08:44 11:19 POC Glucose 65 L 133 H 165 H (70-99) mg/dL 01/20/21 01/20/21 Range/Units 17:07 21:10 POC Glucose 234 H 220 H (70-99) mg/dL Result Diagrams: 01/08/21 06:00 01/07/21 18:15 Sepsis Event Note - Evaluation Sepsis Screening Result: No Definite Risk - Focused Exam Vital Signs: Vital Signs Temp Pulse Resp BP Pulse Ox 01/20/21 20:00 98.2 F 96 16 137/66 96 - Problem List Review Problem List Initiated/Reviewed/Updated: Yes - Plan Plan:: Surgical History: At outside hospital on December 31, 2020: Right long gamma nail fixation for right intertrochanteric fracture. Previous surgeries: Tonsillectomy, adenoidectomy, bilateral cataract surgery Family History: Cancer, diabetes, hypertension, hyperlipidemia Social History: Tobacco: Former smoker Alcohol: Occasional Caffeine: Coffee Drugs: Never Allergies: Patient has documented allergy to quinapril which causes cough, however the patient is uncertain of this and cannot recall this Code Status: Full Assessment / Plan: Admission to swing bed status post right long gamma nail fixation of right intertrochanteric fracture. As needed analgesia. Lidocaine 5% patch to be applied affected area for 12 hours daily. Physical therapy. Occupational Thera py Hypothyroidism. Synthroid 100.5 mcg p.o. daily Seasonal allergies Gout. Allopurinol 150 mg p.o. daily Neuropathy. Gabapentin 300 mg p.o. twice daily History of TIA. Aspirin 320 mg p.o. daily Zocor 40 mg p.o. at bedtime Osteoarthritis Erectile dysfunction BPH. Flomax 0.4 mg p.o. daily Iron deficiency anemia. Monitor hemoglobin level intermittently. Vitamin C 250 mg p.o. daily plus ferrous sulfate 325 mg p.o. twice daily COPD Coronary artery disease. Aspirin 325 mg p.o. daily plus Coreg 6.25 mg p.o. twice daily Po Zocor 40 mg p.o. nightly Diabetes. Will check Annmarie glucose before every meal and at bedtime and provide sulci scale plus glimepiride 4 mg p.o. twice daily plus Lantus 24 units subcutaneously nightly plus Januvia 50 mg p.o. daily plus Ozempic 0.5 mg subcuta neously every 4 weeks GERD. Protonix 40 mg p.o. nightly Hyperlipidemia. Zocor 40 mg p.o. nightly Hypertension. Coreg 6.25 mg p.o. twice daily Obesity. Patient be counseled regarding lifestyle education Chronic kidney disease, baseline creatinine as documented at our facility ranges between 2 and 3.6. Will monitor creatinine level intermittently Chronic pain History nephrolithiasis Degenerative disc disease Diverticulosis GI prophylaxis. Senna plus: 1 tab p.o. twice daily DVT prophylaxis. Heparin 5000 units subcutaneously every 12 hours Disposition: END OF DOCTOR [facility] HISTORY AND PHYSICAL / CONSULTATION NOTE
[2021-01-21] MEDS: Gabapentin 300 MG Cap PO SCH ×2 (08:34→20:13)
[2021-01-21] MEDS: Aspirin 325 MG Tab.EC PO SCH (08:35)
[2021-01-21] MEDS: Ferrous Sulfate 325 MG Tab PO SCH ×2 (08:35→17:13)
[2021-01-21] MEDS: Glimepiride 2 MG Tab PO SCH ×2 (08:35→17:08)
[2021-01-21] MEDS: Levothyroxine 125 MCG Tab PO SCH (08:35)
[2021-01-21] MEDS: Multivitamin Tab PO SCH (08:35)
[2021-01-21] MEDS: Carvedilol 6.25 MG Tab PO SCH ×2 (08:36→17:09)
[2021-01-21] MEDS: Insulin Lispro 100 Units/ML 3 ML Vial SUBCUT SCH ×4 (08:36→20:16)
[2021-01-21] MEDS: Heparin Sodium 5,000 Units/ML Vial SUBCUT SCH ×2 (08:37→20:17)
[2021-01-21] MEDS: Ascorbic Acid 500 MG Tab PO SCH (08:38)
[2021-01-21] MEDS: Lidocaine 5% 700 MG Patch TOP SCH (08:42)
[2021-01-21] MEDS: SITAGLIPTIN 100 MG PO SCH (08:48)
[2021-01-21] MEDS: Nystatin Crm 15 GM Tube TOP SCH ×2 (08:50→20:24)
[2021-01-21] MEDS: Acetaminophen 325 MG Tab PO PRN ×2 (10:11→20:17)
[2021-01-21] MEDS: oxyCODONE 5 MG Tab PO PRN (15:21)
[2021-01-21] MEDS: Pantoprazole 40 MG Tab.CR PO SCH (17:08)
[2021-01-21] MEDS: Tamsulosin 0.4 MG Cap.ER PO SCH (17:13)
[2021-01-21] MEDS: Simvastatin 40 MG Tab PO SCH (17:13)
[2021-01-21] MEDS: Allopurinol 300 MG Tab PO SCH (17:14)
[2021-01-21] MEDS: INSULIN GLARG HUMAN REC ANALOG 100 UNIT/ML SUBCUT SCH (20:14)
[2021-01-22] MEDS: Levothyroxine 125 MCG Tab PO SCH (06:13)
[2021-01-22] MEDS: Lidocaine 5% 700 MG Patch TOP SCH (09:04)
[2021-01-22] MEDS: Glimepiride 2 MG Tab PO SCH ×2 (09:04→17:41)
[2021-01-22] MEDS: Carvedilol 6.25 MG Tab PO SCH ×2 (09:05→17:41)
[2021-01-22] MEDS: Ascorbic Acid 500 MG Tab PO SCH (09:05)
[2021-01-22] MEDS: Ferrous Sulfate 325 MG Tab PO SCH ×2 (09:05→17:40)
[2021-01-22] MEDS: Multivitamin Tab PO SCH (09:05)
[2021-01-22] MEDS: Aspirin 325 MG Tab.EC PO SCH (09:05)
[2021-01-22] MEDS: Heparin Sodium 5,000 Units/ML Vial SUBCUT SCH ×2 (09:06→21:09)
[2021-01-22] MEDS: Gabapentin 300 MG Cap PO SCH ×2 (09:06→21:09)
[2021-01-22] MEDS: Magnesium Hydroxide 400 MG/5 ML Susp 30 ML Cup PO PRN (09:15)
[2021-01-22] MEDS: Insulin Lispro 100 Units/ML 3 ML Vial SUBCUT SCH ×4 (09:18→21:08)
[2021-01-22] MEDS: Nystatin Crm 15 GM Tube TOP SCH ×2 (09:19→21:08)
[2021-01-22] MEDS: SITAGLIPTIN 100 MG PO SCH (09:19)
[2021-01-22] MEDS: SEMAGLUTIDE 2 MG/1.5 ML SUBCUT SCH (09:20)
[2021-01-22] MEDS: oxyCODONE 5 MG Tab PO PRN (11:07)
[2021-01-22] MEDS: Tamsulosin 0.4 MG Cap.ER PO SCH (17:40)
[2021-01-22] MEDS: Simvastatin 40 MG Tab PO SCH (17:40)
[2021-01-22] MEDS: Allopurinol 300 MG Tab PO SCH (17:40)
[2021-01-22] MEDS: Pantoprazole 40 MG Tab.CR PO SCH (17:41)
[2021-01-22] MEDS: INSULIN GLARG HUMAN REC ANALOG 100 UNIT/ML SUBCUT SCH (21:07)
[2021-01-22] MEDS: Acetaminophen 325 MG Tab PO PRN (21:10)
[2021-01-23] MEDS: Levothyroxine 125 MCG Tab PO SCH (06:12)
[2021-01-23] MEDS ORDERED: 50% Dextrose in Water 50 ML Syringe IVPUSH PRN (06:52)
[2021-01-23] MEDS ORDERED: Glucagon,Human Recombinant 1 MG Vial IM PRN (06:52)
[2021-01-23] MEDS: Carvedilol 6.25 MG Tab PO SCH ×2 (08:08→17:11)
[2021-01-23] MEDS: Ferrous Sulfate 325 MG Tab PO SCH ×2 (08:08→17:06)
[2021-01-23] MEDS: Glimepiride 2 MG Tab PO SCH ×2 (08:08→17:05)
[2021-01-23] MEDS: Ascorbic Acid 500 MG Tab PO SCH (08:09)
[2021-01-23] MEDS: Heparin Sodium 5,000 Units/ML Vial SUBCUT SCH ×2 (08:09→21:09)
[2021-01-23] MEDS: Aspirin 325 MG Tab.EC PO SCH (08:09)
[2021-01-23] MEDS: Multivitamin Tab PO SCH (08:09)
[2021-01-23] MEDS: Gabapentin 300 MG Cap PO SCH ×2 (08:09→21:11)
[2021-01-23] MEDS: Lidocaine 5% 700 MG Patch TOP SCH (08:10)
[2021-01-23] MEDS: Insulin Lispro 100 Units/ML 3 ML Vial SUBCUT SCH ×4 (08:10→21:07)
[2021-01-23] MEDS: SITAGLIPTIN 100 MG PO SCH (08:11)
[2021-01-23] MEDS: Nystatin Crm 15 GM Tube TOP SCH ×2 (08:12→21:12)
[2021-01-23] MEDS: oxyCODONE 5 MG Tab PO PRN (09:26)
[2021-01-23] MEDS: Pantoprazole 40 MG Tab.CR PO SCH (17:05)
[2021-01-23] MEDS: Allopurinol 300 MG Tab PO SCH (17:05)
[2021-01-23] MEDS: Tamsulosin 0.4 MG Cap.ER PO SCH (17:05)
[2021-01-23] MEDS: Simvastatin 40 MG Tab PO SCH (17:05)
[2021-01-23] MEDS: Insulin Glarg,Human.Rec.Analog 100 Unit/ML SUBCUT SCH (21:08)
[2021-01-23] MEDS: Acetaminophen 325 MG Tab PO PRN (21:11)
[2021-01-24] MEDS: Levothyroxine 125 MCG Tab PO SCH (06:14)
[2021-01-24] MEDS: Insulin Lispro 100 Units/ML 3 ML Vial SUBCUT SCH ×4 (09:34→21:04)
[2021-01-24] MEDS: SITAGLIPTIN 100 MG PO SCH (09:35)
[2021-01-24] MEDS: Lidocaine 5% 700 MG Patch TOP SCH (09:35)
[2021-01-24] MEDS: Nystatin Crm 15 GM Tube TOP SCH ×2 (09:35→20:17)
[2021-01-24] MEDS: oxyCODONE 5 MG Tab PO PRN (09:36)
[2021-01-24] MEDS: Multivitamin Tab PO SCH (09:36)
[2021-01-24] MEDS: Aspirin 325 MG Tab.EC PO SCH (09:38)
[2021-01-24] MEDS: Glimepiride 2 MG Tab PO SCH ×2 (09:38→17:38)
[2021-01-24] MEDS: Carvedilol 6.25 MG Tab PO SCH ×2 (09:38→17:38)
[2021-01-24] MEDS: Gabapentin 300 MG Cap PO SCH ×2 (09:39→20:17)
[2021-01-24] MEDS: Ascorbic Acid 500 MG Tab PO SCH (09:39)
[2021-01-24] MEDS: Ferrous Sulfate 325 MG Tab PO SCH ×2 (09:39→17:38)
[2021-01-24] MEDS: Heparin Sodium 5,000 Units/ML Vial SUBCUT SCH ×2 (09:40→20:18)
[2021-01-24] MEDS: Acetaminophen 325 MG Tab PO PRN ×2 (15:59→20:17)
[2021-01-24] MEDS: Pantoprazole 40 MG Tab.CR PO SCH (17:37)
[2021-01-24] MEDS: Tamsulosin 0.4 MG Cap.ER PO SCH (17:38)
[2021-01-24] MEDS: Simvastatin 40 MG Tab PO SCH (17:38)
[2021-01-24] MEDS: Allopurinol 300 MG Tab PO SCH (17:38)
[2021-01-24] MEDS: Insulin Glarg,Human.Rec.Analog 100 Unit/ML SUBCUT SCH (21:05)
[2021-01-25] MEDS: Levothyroxine 125 MCG Tab PO SCH (06:25)
[2021-01-25] MEDS: Acetaminophen 325 MG Tab PO PRN ×2 (06:33→20:25)
[2021-01-25] MEDS: oxyCODONE 5 MG Tab PO PRN (08:00)
[2021-01-25] MEDS: Gabapentin 300 MG Cap PO SCH ×2 (09:37→20:24)
[2021-01-25] MEDS: Ascorbic Acid 500 MG Tab PO SCH (09:37)
[2021-01-25] MEDS: Multivitamin Tab PO SCH (09:37)
[2021-01-25] MEDS: Ferrous Sulfate 325 MG Tab PO SCH ×2 (09:38→17:36)
[2021-01-25] MEDS: Glimepiride 2 MG Tab PO SCH ×2 (09:38→17:37)
[2021-01-25] MEDS: Carvedilol 6.25 MG Tab PO SCH ×2 (09:38→17:40)
[2021-01-25] MEDS: Aspirin 325 MG Tab.EC PO SCH (09:38)
[2021-01-25] MEDS: Heparin Sodium 5,000 Units/ML Vial SUBCUT SCH ×2 (09:39→20:26)
[2021-01-25] MEDS: Insulin Lispro 100 Units/ML 3 ML Vial SUBCUT SCH ×4 (09:39→20:50)
[2021-01-25] MEDS: Lidocaine 5% 700 MG Patch TOP SCH (09:40)
[2021-01-25] MEDS: SITAGLIPTIN 100 MG PO SCH (09:46)
[2021-01-25] MEDS: Nystatin Crm 15 GM Tube TOP SCH ×2 (09:47→20:25)
[2021-01-25] MEDS: Simvastatin 40 MG Tab PO SCH (17:36)
[2021-01-25] MEDS: Tamsulosin 0.4 MG Cap.ER PO SCH (17:36)
[2021-01-25] MEDS: Allopurinol 300 MG Tab PO SCH (17:37)
[2021-01-25] MEDS: Pantoprazole 40 MG Tab.CR PO SCH (17:37)
[2021-01-25] MEDS: Insulin Glarg,Human.Rec.Analog 100 Unit/ML SUBCUT SCH (20:49)
[2021-01-25] MEDS: cefTRIAXone 1 GM Vial IM SCH (22:20)
[2021-01-25] MEDS: Lidocaine 1% 30 ML SDV SCH (22:21)
[2021-01-26] MEDS: Levothyroxine 125 MCG Tab PO SCH (04:59)
[2021-01-26] MEDS: Acetaminophen 325 MG Tab PO PRN ×3 (05:02→20:20)
[2021-01-26] MEDS: Glimepiride 2 MG Tab PO SCH ×2 (08:44→18:01)
[2021-01-26] MEDS: Aspirin 325 MG Tab.EC PO SCH (08:44)
[2021-01-26] MEDS: Ascorbic Acid 500 MG Tab PO SCH (08:44)
[2021-01-26] MEDS: Gabapentin 300 MG Cap PO SCH ×2 (08:44→20:21)
[2021-01-26] MEDS: Multivitamin Tab PO SCH (08:44)
[2021-01-26] MEDS: Carvedilol 6.25 MG Tab PO SCH ×2 (08:45→18:02)
[2021-01-26] MEDS: oxyCODONE 5 MG Tab PO PRN (08:46)
[2021-01-26] MEDS: Ferrous Sulfate 325 MG Tab PO SCH ×2 (08:46→18:03)
[2021-01-26] MEDS: SITAGLIPTIN 100 MG PO SCH (08:49)
[2021-01-26] MEDS: Heparin Sodium 5,000 Units/ML Vial SUBCUT SCH ×2 (08:50→20:23)
[2021-01-26] MEDS: Nystatin Crm 15 GM Tube TOP SCH ×2 (08:51→20:22)
[2021-01-26] MEDS: Lidocaine 5% 700 MG Patch TOP SCH (08:52)
[2021-01-26] MEDS: Insulin Lispro 100 Units/ML 3 ML Vial SUBCUT SCH ×4 (09:48→21:28)
[2021-01-26] MEDS: Pantoprazole 40 MG Tab.CR PO SCH (18:01)
[2021-01-26] MEDS: Tamsulosin 0.4 MG Cap.ER PO SCH (18:01)
[2021-01-26] MEDS: Simvastatin 40 MG Tab PO SCH (18:01)
[2021-01-26] MEDS: Allopurinol 300 MG Tab PO SCH (18:03)
[2021-01-26] MEDS: Insulin Glarg,Human.Rec.Analog 100 Unit/ML SUBCUT SCH (21:29)
[2021-01-26] MEDS: cefTRIAXone 1 GM Vial IM SCH (21:57)
[2021-01-26] MEDS: Lidocaine 1% 30 ML SDV SCH (21:57)
[2021-01-27] MEDS: Levothyroxine 125 MCG Tab PO SCH (06:03)
[2021-01-27] MEDS: oxyCODONE 5 MG Tab PO PRN (09:58)
[2021-01-27] MEDS: Aspirin 325 MG Tab.EC PO SCH (09:58)
[2021-01-27] MEDS: Carvedilol 6.25 MG Tab PO SCH ×2 (09:59→17:40)
[2021-01-27] MEDS: Ferrous Sulfate 325 MG Tab PO SCH ×2 (10:00→17:41)
[2021-01-27] MEDS: Glimepiride 2 MG Tab PO SCH ×2 (10:01→17:41)
[2021-01-27] MEDS: Gabapentin 300 MG Cap PO SCH ×2 (10:02→20:41)
[2021-01-27] MEDS: Multivitamin Tab PO SCH (10:02)
[2021-01-27] MEDS: SITAGLIPTIN 100 MG PO SCH (10:05)
[2021-01-27] MEDS: Heparin Sodium 5,000 Units/ML Vial SUBCUT SCH ×2 (10:06→20:25)
[2021-01-27] MEDS: Nystatin Crm 15 GM Tube TOP SCH ×2 (10:06→20:42)
[2021-01-27] MEDS: Insulin Lispro 100 Units/ML 3 ML Vial SUBCUT SCH ×4 (10:08→20:40)
[2021-01-27] MEDS: Ascorbic Acid 500 MG Tab PO SCH (10:09)
[2021-01-27] MEDS: Lidocaine 5% 700 MG Patch TOP SCH (10:11)
[2021-01-27] MEDS: Simvastatin 40 MG Tab PO SCH (17:41)
[2021-01-27] MEDS: Pantoprazole 40 MG Tab.CR PO SCH (17:41)
[2021-01-27] MEDS: Tamsulosin 0.4 MG Cap.ER PO SCH (17:42)
[2021-01-27] MEDS: Allopurinol 300 MG Tab PO SCH (17:42)
[2021-01-27] MEDS: Insulin Glarg,Human.Rec.Analog 100 Unit/ML SUBCUT SCH (20:50)
[2021-01-27] MEDS: Acetaminophen 325 MG Tab PO PRN (20:50)
[2021-01-27] MEDS ORDERED: Sulfamethoxazole/Trimethoprim 800-160 MG Tab PO SCH (21:00)
[2021-01-27] MEDS: Lidocaine 1% 30 ML SDV SCH (23:43)
[2021-01-28] MEDS: Levothyroxine 125 MCG Tab PO SCH (06:10)
--- NOTE | 2021-01-28 06:48 | PCM.PN ---
- General Info Date of Service: 01/28/21 Subjective Update: The patient endorses no complaints at this time. He denies experiencing fever, rigors, nausea, vomiting, cough, wheeze, abdominal pain, chest pain, dyspnea. He states that his right hip pain is well controlled and when he does have pain it is adequately covered with as needed analgesics. He indicates that he has been eating well and is having regular bowel movements. He indicates he is satisfied with his progress with physical therapy. I explained to the patient his current medical condition and plan of care and I have answered all of his questions Functional Status: Reports: Pain Controlled - Review of Systems General: Reports: No Symptoms HEENT: Reports: No Symptoms Pulmonary: Reports: No Symptoms Cardiovascular: Reports: No Symptoms Gastrointestinal: Reports: No Symptoms Genitourinary: Reports: No Symptoms Musculoskeletal: Reports: No Symptoms Skin: Reports: No Symptoms Neurological: Reports: No Symptoms Psychiatric: Reports: No Symptoms - Patient Data Vitals - Most Recent: Last Vital Signs Temp 97.6 F 01/27/21 20:00 Pulse 93 01/27/21 20:00 Resp 18 01/27/21 20:00 BP 111/60 01/27/21 20:00 Pulse Ox 97 01/27/21 20:00 Weight - Most Recent: 207 lb 12.8 oz I&O - Last 24 Hours: Intake & Output 01/27/21 01/27/21 01/28/21 14:59 22:59 06:59 Intake Total 360 Output Total 900 600 650 Balance -900 -240 -650 Lab Results Last 24 Hours: Laboratory Results - last 24 hr 01/27/21 01/27/21 01/27/21 Range/Units 08:03 11:48 16:48 POC Glucose 131 H 264 H 170 H (70-99) mg/dL 01/27/21 Range/Units 20:30 POC Glucose 189 H (70-99) mg/dL Edvin Results Last 24 Hours: Microbiology 01/25/21 19:45 Urine Culture - Preliminary Urine, Garcia Cath (Indwelling) Med Orders - Current: Current Medications Acetaminophen (Acetaminophen 325 Mg Tab) 650 mg PO Q4H PRN PRN Reason: Pain (Mild 1-3)/fever Last Admin: 01/27/21 20:50 Dose: 650 mg Documented by: Allopurinol (Allopurinol 300 Mg Tab) [facility] Last Admin: 01/27/21 17:42 Dose: 150 mg Documented by: Ascorbic Acid (Ascorbic Acid 500 Mg Tab) 250 mg PO DAILY [facility] Last Admin: 01/27/21 10:09 Dose: 250 mg Documented by: Aspirin (Aspirin 325 Mg Tab.Ec) 325 mg PO DAILY [facility] Last Admin: 01/27/21 09:58 Dose: 325 mg Documented by: Carvedilol (Carvedilol 6.25 Mg Tab) 6.25 mg PO BIDMEALS [facility] Last Admin: 01/27/21 17:40 Dose: 6.25 mg Documented by: Dextrose/Water (50% Dextrose In Water 50 Ml Syringe) 50 ml IVPUSH Q15M PRN PRN Reason: Hypoglycemia Ferrous Sulfate (Ferrous Sulfate 325 Mg Tab) 325 mg PO BIDMEALS [facility] Last Admin: 01/27/21 17:41 Dose: 325 mg Documented by: Gabapentin (Gabapentin 300 Mg Cap) 300 mg PO BID [facility] Last Admin: 01/27/21 20:41 Dose: 300 mg Documented by: Glimepiride (Glimepiride 2 Mg Tab) 4 mg PO BIDMEALS [facility] Last Admin: 01/27/21 17:41 Dose: 4 mg Documented by: Glucagon (Glucagon,Human Recombinant 1 Mg Vial) 1 mg IM Q15M PRN PRN Reason: Hypoglycemia Heparin Sodium (Porcine) (Heparin Sodium 5,000 Units/Ml Vial) 5,000 units SUBCUT Q12HR [facility] Last Admin: 01/27/21 20:25 Dose: 5,000 units Documented by: Insulin Glargine (Insulin Glarg,Human.Rec.Analog 100 Unit/Ml) 19 unit SUBCUT BEDTIME [facility] Last Admin: 01/27/21 20:50 Dose: 19 units Documented by: Insulin Human Lispro (Insulin Lispro 100 Units/Ml 3 Ml Vial) 0 unit SUBCUT WITHMEALSANDBED [facility]; Protocol Last Admin: 01/27/21 20:40 Dose: 1 units Documented by: Levothyroxine Sodium (Levothyroxine 125 Mcg Tab) 125 mcg PO ACBREAKFAST [facility] Last Admin: 01/28/21 06:10 Dose: 125 mcg Documented by: Lidocaine (Lidocaine 5% 700 Mg Patch) 700 mg TOP DAILY [facility] Last Admin: 01/27/21 10:11 Dose: 700 mg Documented by: Magnesium Hydroxide (Magnesium Hydroxide 400 Mg/5 Ml Susp 30 Ml Cup) 30 ml PO Q12H PRN PRN Reason: Constipation Miscellaneous Information (Remove Lidocaine Patch) 1 ea TOP BEDTIME [facility] Last Admin: 01/27/21 20:43 Dose: 1 ea Documented by: Multivitamins/Minerals/Vitamin C (Multivitamin Tab) 1 tab PO DAILY [facility] Last Admin: 01/27/21 10:02 Dose: 1 tab Documented by: Nystatin (Nystatin Crm 15 Gm Tube) 0 gm TOP BID [facility] Last Admin: 01/27/21 20:42 Dose: 1 applic Documented by: Ondansetron HCl (Ondansetron 4 Mg Tab.Dis) 4 mg PO Q4H PRN PRN Reason: nausea, able to take PO Oxycodone HCl (Oxycodone 5 Mg Tab) 5 mg PO Q8HR PRN PRN Reason: Pain (severe 7-10) Last Admin: 01/27/21 09:58 Dose: 5 mg Documented by: Pantoprazole Sodium (Pantoprazole 40 Mg Tab.Cr) [facility] Last Admin: 01/27/21 17:41 Dose: 40 mg Documented by: Sitagliptin (Januvia ) 100 Mg Tablet Pt Own Med 0 each PO DAILY [facility] Last Admin: 01/27/21 10:05 Dose: 1 each Documented by: Semaglutide [Ozempic ] 2 Mg/1.5 Ml Pen. Injctr Pt Own Med* * 0 each SUBCUT Tu@0900 [facility] Last Admin: 01/22/21 09:20 Dose: 1 each Documented by: Senna/Docusate Sodium (Docusate Sodium/Sennosides 50-8.6 Mg Tab) 1 tab PO Q12HR [facility] Last Admin: 01/27/21 20:42 Dose: 1 tab Documented by: Simvastatin (Simvastatin 40 Mg Tab) [facility] Last Admin: 01/27/21 17:41 Dose: 40 mg Documented by: Tamsulosin HCl (Tamsulosin 0.4 Mg Cap.Er) 0.4 mg [facility] Last Admin: 01/27/21 17:42 Dose: 0.4 mg Documented by: Trimethoprim/Sulfamethoxazole (Sulfamethoxazole/Trimethoprim 800-160 Mg Tab) 1 tab PO BID [facility] Stop: 01/30/21 23:59 Last Admin: 01/27/21 20:42 Dose: 1 tab Documented by: Discontinued Medications Ceftriaxone Sodium (Ceftriaxone 1 Gm Vial) 1 gm IM Q24H [facility] Last Admin: 01/26/21 21:57 Dose: 1 gm Documented by: Dextrose/Water (50% Dextrose In Water 50 Ml Syringe) 50 ml IVPUSH Q15M PRN PRN Reason: Hypoglycemia Gabapentin (Gabapentin 300 Mg Cap) 600 mg PO BID [facility] Last Admin: 01/08/21 09:50 Dose: 600 mg Documented by: Glucagon (Glucagon,Human Recombinant 1 Mg Vial) 1 mg IM Q15M PRN PRN Reason: Hypoglycemia Insulin Glargine (Insulin Glarg,Human.Rec.Analog 100 Unit/Ml) 24 unit SUBCUT BEDTIME [facility] Insulin Glargine (Insulin Glarg,Human.Rec.Analog 100 Unit/Ml PenOwn Med) 24 unit SUBCUT BEDTIME [facility] Last Admin: 01/22/21 21:07 Dose: 24 units Documented by: Lidocaine HCl (Lidocaine 1% 30 Ml Sdv) 2.1 ml .XX Q24H [facility] Last Admin: 01/27/21 23:43 Dose: Not Given Documented by: Nystatin (Nystatin Topical Powder 30 Gm Bottle) 0 gm TOP BID [facility] Last Admin: 01/19/21 09:23 Dose: 1 applic Documented by: Senna/Docusate Sodium (Docusate Sodium/Sennosides 50-8.6 Mg Tab) 1 tab PO Q12H [facility] Last Admin: 01/25/21 09:37 Dose: 1 tab Documented by: - Exam General: Alert, Oriented HEENT: Pupils Equal, Pupils Reactive, EOMI, Mucous Membr. Moist/[place] Neck: Supple Lungs: Clear to Auscultation, Normal Respiratory Effort Cardiovascular: Regular Rate, Regular Rhythm GI/Abdominal Exam: Normal Bowel Sounds, Soft, Non-Tender, No Organomegaly, No Distention, No Abnormal Bruit, No Mass, Pelvis Stable Back Exam: Normal Inspection, Full Range of Motion Extremities: Normal Inspection, Normal Range of Motion, Non-Tender, No Pedal Edema, Normal Capillary Refill Peripheral Pulses: 2+: Carotid (L), Carotid (R), Brachial (L), Brachial (R), Radial (L), Radial (R), Femoral (L), Femoral (R), Popliteal (L), Popliteal (R), Posterior Tibial (L), Posterior Tibial (R), Dorsalis Pedis (L), Dorsalis Pedis (R) Skin: Warm, Dry, Intact Wound/Incisions: Healing Well Neurological: No New Focal Deficit Psy/Mental Status: Alert, Normal Affect, Normal Mood - Patient Data Lab Results Last 24 hrs: Laboratory Results - last 24 hr 01/27/21 01/27/21 01/27/21 Range/Units 08:03 11:48 16:48 POC Glucose 131 H 264 H 170 H (70-99) mg/dL 01/27/21 Range/Units 20:30 POC Glucose 189 H (70-99) mg/dL Result Diagrams: 01/08/21 06:00 01/07/21 18:15 Edvin Results Last 24 hrs: Microbiology 01/25/21 19:45 Urine Culture - Preliminary Urine, Garcia Cath (Indwelling) Sepsis Event Note - Evaluation Sepsis Screening Result: No Definite Risk - Focused Exam Vital Signs: Vital Signs Temp Pulse Resp BP Pulse Ox 01/27/21 20:00 97.6 F 93 18 111/60 97 - Problem List Review Problem List Initiated/Reviewed/Updated: Yes - My Orders Last 24 Hours: My Active Orders 01/27/21 21:00 Sulfamethoxazole/Trimethoprim [Septra DS] 1 tab PO BID - Plan Plan:: Surgical History: At outside hospital on December 31, 2020: Right long gamma nail fixation for right intertrochanteric fracture. Previous surgeries: Tonsillectomy, adenoidectomy, bilateral cataract surgery Family History: Cancer, diabetes, hypertension, hyperlipidemia Social History: Tobacco: Former smoker Alcohol: Occasional Caffeine: Coffee Drugs: Never Allergies: Patient has documented allergy to quinapril which causes cough, however the patient is uncertain of this and cannot recall this Code Status: Full Assessment / Plan: Admission to swing bed status post right long gamma nail fixation of right intertrochanteric fracture. As needed analgesia. Lidocaine 5% patch to be applied affected area for 12 hours daily. Physical therapy. Occupational Therapy Urinary tract infection. Bactrim DS 1 tab p.o. twice daily until 11:59 PM on January 30, 2021 Elevated PSA. This may be a sequelae of urinary tract infection. 1 week post discharge, will recheck PSA and also refer the patient for outpatient follow-up with urology Hypothyroidism. Synthroid 100.5 mcg p.o. daily Seasonal allergies Gout. Allopurinol 150 mg p.o. daily Neuropathy. Gabapentin 300 mg p.o. twice daily History of TIA. Aspirin 320 mg p.o. daily Zocor 40 mg p.o. at bedtime Osteoarthritis Erectile dysfunction BPH. Flomax 0.4 mg p.o. daily Iron deficiency anemia. Monitor hemoglobin level intermittently. Vitamin C 250 mg p.o. daily plus ferrous sulfate 325 mg p.o. twice daily COPD Coronary artery disease. Aspirin 325 mg p.o. daily plus Coreg 6.25 mg p.o. twice daily Po Zocor 40 mg p.o. nightly Diabetes. Will check [place] glucose before every meal and at bedtime and provide sulci scale plus glimepiride 4 mg p.o. twice daily plus Lantus 19 units subcutaneously nightly plus Januvia 50 mg p.o. daily plus Ozempic 0.5 mg subcutaneously every 4 weeks GERD. Protonix 40 mg p.o. nightly Hyperlipidemia. Zocor 40 mg p.o. nightly Hypertension. Coreg 6.25 mg p.o. twice daily Obesity. Patient be counseled regarding lifestyle education Chronic kidney disease, baseline creatinine as documented at our facility ranges between 2 and 3.6. Will monitor creatinine level intermittently Chronic pain History nephrolithiasis Degenerative disc disease Diverticulosis GI prophylaxis. Senna plus: 1 tab p.o. twice daily DVT prophylaxis. Heparin 5000 units subcutaneously every 12 hours Disposition: END OF DOCTOR [facility] HISTORY AND PHYSICAL / CONSULTATION NOTE
[2021-01-28] MEDS: Insulin Lispro 100 Units/ML 3 ML Vial SUBCUT SCH ×4 (08:24→21:35)
[2021-01-28] MEDS: Glimepiride 2 MG Tab PO SCH ×2 (08:52→17:43)
[2021-01-28] MEDS: Multivitamin Tab PO SCH (08:53)
[2021-01-28] MEDS: Gabapentin 300 MG Cap PO SCH ×2 (08:53→21:29)
[2021-01-28] MEDS: Carvedilol 6.25 MG Tab PO SCH ×2 (08:53→17:44)
[2021-01-28] MEDS: Ascorbic Acid 500 MG Tab PO SCH (08:54)
[2021-01-28] MEDS: oxyCODONE 5 MG Tab PO PRN (08:55)
[2021-01-28] MEDS: Aspirin 325 MG Tab.EC PO SCH (08:55)
[2021-01-28] MEDS: Ferrous Sulfate 325 MG Tab PO SCH ×2 (08:57→17:43)
[2021-01-28] MEDS: Heparin Sodium 5,000 Units/ML Vial SUBCUT SCH ×2 (08:57→21:33)
[2021-01-28] MEDS: Lidocaine 5% 700 MG Patch TOP SCH (08:58)
[2021-01-28] MEDS: Levofloxacin 500 MG Tab PO SCH (09:03)
[2021-01-28] MEDS: SITAGLIPTIN 100 MG PO SCH (09:03)
[2021-01-28] MEDS: Nystatin Crm 15 GM Tube TOP SCH ×2 (09:05→21:31)
[2021-01-28] MEDS: Tamsulosin 0.4 MG Cap.ER PO SCH (17:43)
[2021-01-28] MEDS: Pantoprazole 40 MG Tab.CR PO SCH (17:43)
[2021-01-28] MEDS: Simvastatin 40 MG Tab PO SCH (17:43)
[2021-01-28] MEDS: Allopurinol 300 MG Tab PO SCH (17:45)
[2021-01-28] MEDS: Acetaminophen 325 MG Tab PO PRN (21:29)
[2021-01-28] MEDS: Insulin Glarg,Human.Rec.Analog 100 Unit/ML SUBCUT SCH (21:36)
[2021-01-29] MEDS: Levothyroxine 125 MCG Tab PO SCH (05:48)
[2021-01-29] MEDS: Aspirin 325 MG Tab.EC PO SCH (09:38)
[2021-01-29] MEDS: Ferrous Sulfate 325 MG Tab PO SCH ×2 (09:38→17:56)
[2021-01-29] MEDS: Glimepiride 2 MG Tab PO SCH ×2 (09:38→17:55)
[2021-01-29] MEDS: Gabapentin 300 MG Cap PO SCH ×2 (09:38→20:49)
[2021-01-29] MEDS: Levofloxacin 500 MG Tab PO SCH (09:38)
[2021-01-29] MEDS: Insulin Lispro 100 Units/ML 3 ML Vial SUBCUT SCH ×4 (09:39→20:47)
[2021-01-29] MEDS: Carvedilol 6.25 MG Tab PO SCH ×2 (09:39→17:59)
[2021-01-29] MEDS: Ascorbic Acid 500 MG Tab PO SCH (09:39)
[2021-01-29] MEDS: Multivitamin Tab PO SCH (09:39)
[2021-01-29] MEDS: oxyCODONE 5 MG Tab PO PRN (09:40)
[2021-01-29] MEDS: Lidocaine 5% 700 MG Patch TOP SCH (09:41)
[2021-01-29] MEDS: Heparin Sodium 5,000 Units/ML Vial SUBCUT SCH ×2 (09:41→20:32)
[2021-01-29] MEDS: SITAGLIPTIN 100 MG PO SCH (09:43)
[2021-01-29] MEDS: Nystatin Crm 15 GM Tube TOP SCH ×2 (09:44→20:54)
[2021-01-29] MEDS: SEMAGLUTIDE 2 MG/1.5 ML SUBCUT SCH (10:47)
[2021-01-29] MEDS: Pantoprazole 40 MG Tab.CR PO SCH (16:56)
[2021-01-29] MEDS: Simvastatin 40 MG Tab PO SCH (17:56)
[2021-01-29] MEDS: Tamsulosin 0.4 MG Cap.ER PO SCH (17:59)
[2021-01-29] MEDS: Allopurinol 300 MG Tab PO SCH (18:00)
[2021-01-29] MEDS: Zolpidem 5 MG Tab PO PRN (20:32)
[2021-01-29] MEDS: Insulin Glarg,Human.Rec.Analog 100 Unit/ML SUBCUT SCH (20:41)
[2021-01-30] MEDS: Levothyroxine 125 MCG Tab PO SCH (05:30)
[2021-01-30] MEDS: Ferrous Sulfate 325 MG Tab PO SCH ×2 (08:20→17:53)
[2021-01-30] MEDS: Gabapentin 300 MG Cap PO SCH ×2 (08:20→20:29)
[2021-01-30] MEDS: Ascorbic Acid 500 MG Tab PO SCH (08:20)
[2021-01-30] MEDS: Carvedilol 6.25 MG Tab PO SCH ×2 (08:20→17:52)
[2021-01-30] MEDS: Multivitamin Tab PO SCH (08:21)
[2021-01-30] MEDS: Glimepiride 2 MG Tab PO SCH ×2 (08:21→17:52)
[2021-01-30] MEDS: Aspirin 325 MG Tab.EC PO SCH (08:21)
[2021-01-30] MEDS: Heparin Sodium 5,000 Units/ML Vial SUBCUT SCH ×2 (08:22→20:31)
[2021-01-30] MEDS: Levofloxacin 500 MG Tab PO SCH (08:22)
[2021-01-30] MEDS: Lidocaine 5% 700 MG Patch TOP SCH (08:23)
[2021-01-30] MEDS: SITAGLIPTIN 100 MG PO SCH (08:26)
[2021-01-30] MEDS: oxyCODONE 5 MG Tab PO PRN (09:59)
[2021-01-30] MEDS: Nystatin Crm 15 GM Tube TOP SCH ×2 (10:01→20:33)
[2021-01-30] MEDS: Insulin Lispro 100 Units/ML 3 ML Vial SUBCUT SCH ×4 (10:02→21:04)
[2021-01-30] MEDS: Simvastatin 40 MG Tab PO SCH (17:52)
[2021-01-30] MEDS: Tamsulosin 0.4 MG Cap.ER PO SCH (17:52)
[2021-01-30] MEDS: Pantoprazole 40 MG Tab.CR PO SCH (17:53)
[2021-01-30] MEDS: Allopurinol 300 MG Tab PO SCH (17:53)
[2021-01-30] MEDS: Acetaminophen 325 MG Tab PO PRN (18:08)
[2021-01-30] MEDS: Insulin Glarg,Human.Rec.Analog 100 Unit/ML SUBCUT SCH (21:03)
[2021-01-31] MEDS: Levothyroxine 125 MCG Tab PO SCH (05:44)
[2021-01-31] MEDS: Levofloxacin 500 MG Tab PO SCH (08:42)
[2021-01-31] MEDS: Multivitamin Tab PO SCH (08:42)
[2021-01-31] MEDS: Aspirin 325 MG Tab.EC PO SCH (08:43)
[2021-01-31] MEDS: Glimepiride 2 MG Tab PO SCH ×2 (08:43→17:03)
[2021-01-31] MEDS: Ferrous Sulfate 325 MG Tab PO SCH ×2 (08:43→17:04)
[2021-01-31] MEDS: Gabapentin 300 MG Cap PO SCH ×2 (08:43→20:24)
[2021-01-31] MEDS: Ascorbic Acid 500 MG Tab PO SCH (08:44)
[2021-01-31] MEDS: SITAGLIPTIN 100 MG PO SCH (08:44)
[2021-01-31] MEDS: Carvedilol 6.25 MG Tab PO SCH ×2 (08:45→17:04)
[2021-01-31] MEDS: Insulin Lispro 100 Units/ML 3 ML Vial SUBCUT SCH ×4 (08:48→20:28)
[2021-01-31] MEDS: oxyCODONE 5 MG Tab PO PRN (08:55)
[2021-01-31] MEDS: Heparin Sodium 5,000 Units/ML Vial SUBCUT SCH ×2 (08:57→20:32)
[2021-01-31] MEDS: Lidocaine 5% 700 MG Patch TOP SCH (08:58)
[2021-01-31] MEDS: Nystatin Crm 15 GM Tube TOP SCH ×2 (09:03→20:37)
[2021-01-31] MEDS: Pantoprazole 40 MG Tab.CR PO SCH (17:03)
[2021-01-31] MEDS: Tamsulosin 0.4 MG Cap.ER PO SCH (17:04)
[2021-01-31] MEDS: Allopurinol 300 MG Tab PO SCH (17:04)
[2021-01-31] MEDS: Simvastatin 40 MG Tab PO SCH (17:04)
[2021-01-31] MEDS: Acetaminophen 325 MG Tab PO PRN (20:24)
[2021-01-31] MEDS: Insulin Glarg,Human.Rec.Analog 100 Unit/ML SUBCUT SCH (20:30)
[2021-02-01] MEDS: Levothyroxine 125 MCG Tab PO SCH (05:58)
[2021-02-01] MEDS: Carvedilol 6.25 MG Tab PO SCH ×2 (08:22→17:28)
[2021-02-01] MEDS: oxyCODONE 5 MG Tab PO PRN (08:23)
[2021-02-01] MEDS: Levofloxacin 500 MG Tab PO SCH (08:23)
[2021-02-01] MEDS: Glimepiride 2 MG Tab PO SCH ×2 (08:23→17:29)
[2021-02-01] MEDS: Insulin Lispro 100 Units/ML 3 ML Vial SUBCUT SCH ×4 (08:25→20:58)
[2021-02-01] MEDS: Ascorbic Acid 500 MG Tab PO SCH (09:34)
[2021-02-01] MEDS: Heparin Sodium 5,000 Units/ML Vial SUBCUT SCH ×2 (09:34→21:03)
[2021-02-01] MEDS: Multivitamin Tab PO SCH (09:34)
[2021-02-01] MEDS: SITAGLIPTIN 100 MG PO SCH (09:34)
[2021-02-01] MEDS: Gabapentin 300 MG Cap PO SCH ×2 (09:35→20:57)
[2021-02-01] MEDS: Aspirin 325 MG Tab.EC PO SCH (09:35)
[2021-02-01] MEDS: Ferrous Sulfate 325 MG Tab PO SCH ×2 (09:36→17:28)
[2021-02-01] MEDS: Lidocaine 5% 700 MG Patch TOP SCH (09:36)
[2021-02-01] MEDS: Nystatin Crm 15 GM Tube TOP SCH ×2 (09:36→20:58)
[2021-02-01] MEDS: Pantoprazole 40 MG Tab.CR PO SCH (16:48)
[2021-02-01] MEDS: Allopurinol 300 MG Tab PO SCH (17:28)
[2021-02-01] MEDS: Tamsulosin 0.4 MG Cap.ER PO SCH (17:29)
[2021-02-01] MEDS: Simvastatin 40 MG Tab PO SCH (17:29)
[2021-02-01] MEDS: Zolpidem 5 MG Tab PO PRN (20:57)
[2021-02-01] MEDS: Insulin Glarg,Human.Rec.Analog 100 Unit/ML SUBCUT SCH (21:01)
[2021-02-02] MEDS: Levothyroxine 125 MCG Tab PO SCH (05:29)
[2021-02-02] MEDS: Gabapentin 300 MG Cap PO SCH ×2 (09:07→21:12)
[2021-02-02] MEDS: Aspirin 325 MG Tab.EC PO SCH (09:08)
[2021-02-02] MEDS: Acetaminophen 325 MG Tab PO PRN ×2 (09:08→21:13)
[2021-02-02] MEDS: Multivitamin Tab PO SCH (09:08)
[2021-02-02] MEDS: Carvedilol 6.25 MG Tab PO SCH ×2 (09:09→17:28)
[2021-02-02] MEDS: Levofloxacin 500 MG Tab PO SCH (09:09)
[2021-02-02] MEDS: Glimepiride 2 MG Tab PO SCH ×2 (09:10→17:27)
[2021-02-02] MEDS: Ferrous Sulfate 325 MG Tab PO SCH ×2 (09:10→17:28)
[2021-02-02] MEDS: Heparin Sodium 5,000 Units/ML Vial SUBCUT SCH ×2 (09:10→21:18)
[2021-02-02] MEDS: Insulin Lispro 100 Units/ML 3 ML Vial SUBCUT SCH ×4 (09:10→21:15)
[2021-02-02] MEDS: Ascorbic Acid 500 MG Tab PO SCH (09:12)
[2021-02-02] MEDS: Lidocaine 5% 700 MG Patch TOP SCH (09:13)
[2021-02-02] MEDS: SITAGLIPTIN 100 MG PO SCH (09:13)
[2021-02-02] MEDS: Nystatin Crm 15 GM Tube TOP SCH ×2 (09:14→21:11)
[2021-02-02] MEDS: Pantoprazole 40 MG Tab.CR PO SCH (16:32)
[2021-02-02] MEDS: Allopurinol 300 MG Tab PO SCH (17:27)
[2021-02-02] MEDS: Tamsulosin 0.4 MG Cap.ER PO SCH (17:28)
[2021-02-02] MEDS: Simvastatin 40 MG Tab PO SCH (17:28)
[2021-02-02] MEDS: Zolpidem 5 MG Tab PO PRN (21:12)
[2021-02-02] MEDS: Insulin Glarg,Human.Rec.Analog 100 Unit/ML SUBCUT SCH (21:16)
[2021-02-03] MEDS: Levothyroxine 125 MCG Tab PO SCH (05:05)
[2021-02-03] MEDS: Ascorbic Acid 500 MG Tab PO SCH (08:22)
[2021-02-03] MEDS: Gabapentin 300 MG Cap PO SCH ×2 (08:22→20:55)
[2021-02-03] MEDS: Glimepiride 2 MG Tab PO SCH ×2 (08:22→18:04)
[2021-02-03] MEDS: Multivitamin Tab PO SCH (08:23)
[2021-02-03] MEDS: Levofloxacin 500 MG Tab PO SCH (08:23)
[2021-02-03] MEDS: Carvedilol 6.25 MG Tab PO SCH ×2 (08:23→18:03)
[2021-02-03] MEDS: Heparin Sodium 5,000 Units/ML Vial SUBCUT SCH ×2 (08:23→21:01)
[2021-02-03] MEDS: Aspirin 325 MG Tab.EC PO SCH (08:23)
[2021-02-03] MEDS: Ferrous Sulfate 325 MG Tab PO SCH ×2 (08:23→18:03)
[2021-02-03] MEDS: Insulin Lispro 100 Units/ML 3 ML Vial SUBCUT SCH ×4 (08:25→21:14)
[2021-02-03] MEDS: Lidocaine 5% 700 MG Patch TOP SCH (08:27)
[2021-02-03] MEDS: SITAGLIPTIN 100 MG PO SCH (08:28)
[2021-02-03] MEDS: Nystatin Crm 15 GM Tube TOP SCH ×2 (08:28→21:07)
[2021-02-03] MEDS: Simvastatin 40 MG Tab PO SCH (18:04)
[2021-02-03] MEDS: Allopurinol 300 MG Tab PO SCH (18:04)
[2021-02-03] MEDS: Pantoprazole 40 MG Tab.CR PO SCH (18:04)
[2021-02-03] MEDS: Tamsulosin 0.4 MG Cap.ER PO SCH (18:04)
[2021-02-03] MEDS: Insulin Glarg,Human.Rec.Analog 100 Unit/ML SUBCUT SCH (21:12)
[2021-02-04] MEDS: Zolpidem 5 MG Tab PO PRN ×2 (00:03→21:10)
[2021-02-04] MEDS: Levothyroxine 125 MCG Tab PO SCH (06:48)
--- NOTE | 2021-02-04 06:55 | PCM.PN ---
- General Info Date of Service: 02/04/21 Subjective Update: The patient endorses no complaints at this time. He denies pain of his right hip. He denies fever, rigors, nausea, vomiting, cough, wheeze, abdominal pain, chest pain, dyspnea, or any other constitutional complaints. He states that he has been eating adequately and that he is having regular bowel movements. Indicates that he has been working with physical therapy and is satisfied with his progress. I explained to the patient his current medical condition and plan of care and I have answered all of his questions Functional Status: Reports: Pain Controlled - Review of Systems General: Reports: No Symptoms HEENT: Reports: No Symptoms Pulmonary: Reports: No Symptoms Cardiovascular: Reports: No Symptoms Gastrointestinal: Reports: No Symptoms Genitourinary: Reports: No Symptoms Musculoskeletal: Reports: No Symptoms Skin: Reports: No Symptoms Neurological: Reports: No Symptoms Psychiatric: Reports: No Symptoms - Patient Data Vitals - Most Recent: Last Vital Signs Temp 97.4 F 02/03/21 22:30 Pulse 51 L 02/03/21 22:30 Resp 14 02/03/21 22:30 BP 137/70 02/03/21 22:30 Pulse Ox 97 02/03/21 22:30 Weight - Most Recent: 202 lb I&O - Last 24 Hours: Intake & Output 02/03/21 02/03/21 02/04/21 14:59 22:59 06:59 Intake Total 985 700 300 Output Total 300 300 350 Balance 685 400 -50 Lab Results Last 24 Hours: Laboratory Results - last 24 hr 02/03/21 02/03/21 02/03/21 Range/Units 07:43 11:55 16:52 POC Glucose 140 H 200 H 160 H (70-99) mg/dL 02/03/21 Range/Units 20:43 POC Glucose 197 H (70-99) mg/dL Med Orders - Current: Current Medications Acetaminophen (Acetaminophen 325 Mg Tab) 650 mg PO Q4H PRN PRN Reason: Pain (Mild 1-3)/fever Last Admin: 02/02/21 21:13 Dose: 650 mg Documented by: Allopurinol ([facility]op[facility]ol 300 Mg Tab) [facility] Last Admin: 02/03/21 18:04 Dose: 150 mg Documented by: Ascorbic Acid (Ascorbic Acid 500 Mg Tab) 250 mg PO DAILY [facility] Last Admin: 02/03/21 08:22 Dose: 250 mg Documented by: Aspirin (Aspirin 325 Mg Tab.Ec) 325 mg PO DAILY [facility] Last Admin: 02/03/21 08:23 Dose: 325 mg Documented by: Carvedilol (Carvedilol 6.25 Mg Tab) 6.25 mg PO BIDMEALS [facility] Last Admin: 02/03/21 18:03 Dose: 6.25 mg Documented by: Dextrose/Water (50% Dextrose In Water 50 Ml Syringe) 50 ml IVPUSH Q15M PRN PRN Reason: Hypoglycemia Ferrous Sulfate (Ferrous Sulfate 325 Mg Tab) 325 mg PO [facility]IDMEALS [facility] Last Admin: 02/03/21 18:03 Dose: 325 mg Documented by: Gabapentin (Gabapentin 300 Mg Cap) 300 mg PO BID [facility] Last Admin: 02/03/21 20:55 Dose: 300 mg Documented by: Glimepiride (Glimepiride 2 Mg Tab) 4 mg PO BIDMEALS [facility] Last Admin: 02/03/21 18:04 Dose: 4 mg Documented by: Glucagon (Glucagon,Human Recombinant 1 Mg Vial) 1 mg IM Q15M PRN PRN Reason: Hypoglycemia Heparin Sodium (Porcine) (Heparin Sodium 5,000 Units/Ml Vial) 5,000 units SUBCUT Q12HR [facility] Last Admin: 02/03/21 21:01 Dose: 5,000 units Documented by: Insulin Glargine (Insulin Glarg,Human.Rec.Analog 100 Unit/Ml) 19 unit SUBCUT BEDTIME [facility] Last Admin: 02/03/21 21:12 Dose: 19 units Documented by: Insulin Human Lispro (Insulin Lispro 100 Units/Ml 3 Ml Vial) 0 unit SUBCUT [facility]; Protocol Last Admin: 02/03/21 21:14 Dose: 1 units Documented by: Levothyroxine Sodium (Levothyroxine 125 Mcg Tab) 125 mcg PO [facility]AK[facility]ST [facility] Last Admin: 02/04/21 06:48 Dose: 125 mcg Documented by: Lidocaine (Lidocaine 5% 700 Mg Patch) 700 mg TOP DAILY [facility] Last Admin: 02/03/21 08:27 Dose: 700 mg Documented by: Magnesium Hydroxide (Magnesium Hydroxide 400 Mg/5 Ml Susp 30 Ml Cup) 30 ml PO Q12H PRN PRN Reason: Constipation Miscellaneous Information (Remove Lidocaine Patch) 1 ea TOP BEDTIME [facility] Last Admin: 02/03/21 20:56 Dose: 1 ea Documented by: Multivitamins/Minerals/Vitamin C (Multivitamin Tab) 1 tab PO DAILY [facility] Last Admin: 02/03/21 08:23 Dose: 1 tab Documented by: Nystatin (Nystatin Crm 15 Gm Tube) 0 gm TOP BID [facility] Last Admin: 02/03/21 21:07 Dose: 1 applic Documented by: Ondansetron HCl (Ondansetron 4 Mg Tab.Dis) 4 mg PO Q4H PRN PRN Reason: nausea, able to take PO Oxycodone HCl (Oxycodone 5 Mg Tab) 5 mg PO Q8HR PRN PRN Reason: Pain (severe 7-10) Last Admin: 02/01/21 08:23 Dose: 5 mg Documented by: Pantoprazole Sodium (Pantoprazole 40 Mg Tab.Cr) [facility] Last Admin: 02/03/21 18:04 Dose: 40 mg Documented by: Sitagliptin (Januvia ) 100 Mg Tablet Pt Own Med 0 each PO DAILY [facility] Last Admin: 02/03/21 08:28 Dose: 1 each Documented by: Senna/Docusate Sodium (Docusate Sodium/Sennosides 50-8.6 Mg Tab) 1 tab PO Q12HR [facility] Last Admin: 02/03/21 20:55 Dose: 1 tab Documented by: Simvastatin (Simvastatin 40 Mg Tab) 40 mg PO [facility] Last Admin: 02/03/21 18:04 Dose: 40 mg Documented by: Tamsulosin HCl (Tamsulosin 0.4 Mg Cap.Er) 0.4 mg PO [facility] Last Admin: 02/03/21 18:04 Dose: 0.4 mg Documented by: Zolpidem Tartrate (Zolpidem 5 Mg Tab) 5 mg PO BEDTIME PRN PRN Reason: Insomnia Last Admin: 02/04/21 00:03 Dose: 5 mg Documented by: Discontinued Medications Ceftriaxone Sodium (Ceftriaxone 1 Gm Vial) 1 gm IM Q24H [facility] Last Admin: 01/26/21 21:57 Dose: 1 gm Documented by: Dextrose/Water (50% Dextrose In Water 50 Ml Syringe) 50 ml IVPUSH Q15M PRN PRN Reason: Hypoglycemia Gabapentin (Gabapentin 300 Mg Cap) 600 mg PO BID [facility] Last Admin: 01/08/21 09:50 Dose: 600 mg Documented by: Glucagon (Glucagon,Human Recombinant 1 Mg Vial) 1 mg IM Q15M PRN PRN Reason: Hypoglycemia Insulin Glargine (Insulin Glarg,Human.Rec.Analog 100 Unit/Ml) 24 unit SUBCUT BEDTIME [facility] Insulin Glargine (Insulin Glarg,Human.Rec.Analog 100 Unit/Ml PenOwn Med) 24 unit SUBCUT BEDTIME [facility] Last Admin: 01/22/21 21:07 Dose: 24 units Documented by: Levofloxacin (Levofloxacin 500 Mg Tab) 500 mg PO Q24H [facility] Stop: 02/03/21 09:01 Last Admin: 02/03/21 08:23 Dose: 500 mg Documented by: Lidocaine HCl (Lidocaine 1% 30 Ml Sdv) 2.1 ml .XX Q24H [facility] Last Admin: 01/27/21 23:43 Dose: Not Given Documented by: Nystatin (Nystatin Topical Powder 30 Gm Bottle) 0 gm TOP BID [facility] Last Admin: 01/19/21 09:23 Dose: 1 applic Documented by: Semaglutide [Ozempic ] 2 Mg/1.5 Ml Pen. Injctr Pt Own Med* * 0 each SUBCUT Tu@0900 [facility] Last Admin: 01/29/21 10:47 Dose: Not Given Documented by: Senna/Docusate Sodium (Docusate Sodium/Sennosides 50-8.6 Mg Tab) 1 tab PO Q12H [facility] Last Admin: 01/25/21 09:37 Dose: 1 tab Documented by: Trimethoprim/Sulfamethoxazole (Sulfamethoxazole/Trimethoprim 800-160 Mg Tab) 1 tab PO BID [facility] Stop: 01/30/21 23:59 Last Admin: 01/27/21 20:42 Dose: 1 tab Documented by: - Exam General: Alert, Oriented HEENT: Pupils Equal, Pupils Reactive, EOMI, Mucous Membr. Moist/[place] Neck: Supple Lungs: Clear to Auscultation, Normal Respiratory Effort Cardiovascular: Regular Rate, Regular Rhythm GI/Abdominal Exam: Normal Bowel Sounds, Soft, Non-Tender, No Organomegaly, No Distention, No Abnormal Bruit, No Mass, Pelvis Stable Back Exam: Normal Inspection, Full Range of Motion Extremities: Normal Inspection, Normal Range of Motion, Non-Tender, No Pedal Edema, Normal Capillary Refill Peripheral Pulses: 2+: Carotid (L), Carotid (R), Brachial (L), Brachial (R), Radial (L), Radial (R), Femoral (L), Femoral (R), Popliteal (L), Popliteal (R), Posterior Tibial (L), Posterior Tibial (R), Dorsalis Pedis (L), Dorsalis Pedis (R) Skin: Warm, Dry, Intact Wound/Incisions: Healing Well Neurological: No New Focal Deficit Psy/Mental Status: Alert, Normal Affect, Normal Mood - Patient Data Lab Results Last 24 hrs: Laboratory Results - last 24 hr 02/03/21 02/03/21 02/03/21 Range/Units 07:43 11:55 16:52 POC Glucose 140 H 200 H 160 H (70-99) mg/dL 02/03/21 Range/Units 20:43 POC Glucose 197 H (70-99) mg/dL Result Diagrams: 01/08/21 06:00 01/07/21 18:15 Sepsis Event Note - Evaluation Sepsis Screening Result: No Definite Risk - Focused Exam Vital Signs: Vital Signs Temp Pulse Resp BP Pulse Ox 02/03/21 22:30 97.4 F 51 L 14 137/70 97 - Problem List Review Problem List Initiated/Reviewed/Updated: Yes - Plan Plan:: Surgical History: At outside hospital on December 31, 2020: Right long gamma nail fixation for right intertrochanteric fracture. Previous surgeries: Tonsillectomy, adenoidectomy, bilateral cataract surgery Family History: Cancer, diabetes, hypertension, hyperlipidemia Social History: Tobacco: Former smoker Alcohol: Occasional Caffeine: Coffee Drugs: Never Allergies: Patient has documented allergy to quinapril which causes cough, however the patient is uncertain of this and cannot recall this Code Status: Full Assessment / Plan: Admission to swing bed status post right long gamma nail fixation of right intertrochanteric fracture. As needed analgesia. Lidocaine 5% patch to be applied affected area for 12 hours daily. Physical therapy. Occupational Therapy Urinary tract infection, urine culture positive for Enterococcus faecalis and Pseudomonas aeruginosa. Patient status post treatment Elevated PSA. This may be a sequelae of urinary tract infection. 1 week post discharge, will recheck PSA and also refer the patient for outpatient follow-up with urology Hypothyroidism. Synthroid 100.5 mcg p.o. daily Seasonal allergies Gout. Allopurinol 150 mg p.o. daily Neuropathy. Gabapentin 300 mg p.o. twice daily History of TIA. Aspirin 320 mg p.o. daily Zocor 40 mg p.o. at bedtime Osteoarthritis Erectile dysfunction BPH. Flomax 0.4 mg p.o. daily Iron deficiency anemia. Monitor hemoglobin level intermittently. Vitamin C 250 mg p.o. daily plus ferrous sulfate 325 mg p.o. twice daily COPD Coronary artery disease. Aspirin 325 mg p.o. daily plus Coreg 6.25 mg p.o. twice daily Po Zocor 40 mg p.o. nightly Diabetes. Will check Annmarie glucose before every meal and at bedtime and provide sulci scale plus glimepiride 4 mg p.o. twice daily plus Lantus 19 units subcutaneously nightly plus Januvia 50 mg p.o. daily GERD. Protonix 40 mg p.o. nightly Hyperlipidemia. Zocor 40 mg p.o. nightly Hypertension. Coreg 6.25 mg p.o. twice daily Obesity. Patient be counseled regarding lifestyle education Chronic kidney disease, baseline creatinine as documented at our facility ranges between 2 and 3.6. Will monitor creatinine level intermittently Chronic pain History nephrolithiasis Degenerative disc disease Diverticulosis GI prophylaxis. Senna plus: 1 tab p.o. twice daily DVT prophylaxis. Heparin 5000 units subcutaneously every 12 hours Disposition: The patient be a candidate for discharge when deemed appropriate by physical therapy and Occupational Therapy END OF DOCTOR [facility] HISTORY AND PHYSICAL / CONSULTATION NOTE
[2021-02-04] MEDS: SITAGLIPTIN 100 MG PO SCH (09:02)
[2021-02-04] MEDS: Nystatin Crm 15 GM Tube TOP SCH ×2 (09:02→21:08)
[2021-02-04] MEDS: Lidocaine 5% 700 MG Patch TOP SCH (09:02)
[2021-02-04] MEDS: Aspirin 325 MG Tab.EC PO SCH (09:03)
[2021-02-04] MEDS: Glimepiride 2 MG Tab PO SCH ×2 (09:03→17:17)
[2021-02-04] MEDS: Multivitamin Tab PO SCH (09:04)
[2021-02-04] MEDS: Gabapentin 300 MG Cap PO SCH ×2 (09:04→21:05)
[2021-02-04] MEDS: oxyCODONE 5 MG Tab PO PRN (09:04)
[2021-02-04] MEDS: Ferrous Sulfate 325 MG Tab PO SCH ×2 (09:04→17:17)
[2021-02-04] MEDS: Carvedilol 6.25 MG Tab PO SCH ×2 (09:04→17:17)
[2021-02-04] MEDS: Heparin Sodium 5,000 Units/ML Vial SUBCUT SCH ×2 (09:05→21:04)
[2021-02-04] MEDS: Ascorbic Acid 500 MG Tab PO SCH (09:05)
[2021-02-04] MEDS: Insulin Lispro 100 Units/ML 3 ML Vial SUBCUT SCH ×4 (09:08→21:08)
[2021-02-04] MEDS: Simvastatin 40 MG Tab PO SCH (17:16)
[2021-02-04] MEDS: Allopurinol 300 MG Tab PO SCH (17:17)
[2021-02-04] MEDS: Pantoprazole 40 MG Tab.CR PO SCH (17:17)
[2021-02-04] MEDS: Tamsulosin 0.4 MG Cap.ER PO SCH (17:17)
[2021-02-04] MEDS: Insulin Glarg,Human.Rec.Analog 100 Unit/ML SUBCUT SCH (21:07)
[2021-02-05] MEDS: oxyCODONE 5 MG Tab PO PRN ×2 (00:36→09:23)
[2021-02-05] MEDS: Levothyroxine 125 MCG Tab PO SCH (06:34)
[2021-02-05] MEDS: Carvedilol 6.25 MG Tab PO SCH ×2 (09:13→17:51)
[2021-02-05] MEDS: Glimepiride 2 MG Tab PO SCH ×2 (09:13→17:53)
[2021-02-05] MEDS: Ascorbic Acid 500 MG Tab PO SCH (09:13)
[2021-02-05] MEDS: Multivitamin Tab PO SCH (09:13)
[2021-02-05] MEDS: Gabapentin 300 MG Cap PO SCH ×2 (09:14→20:53)
[2021-02-05] MEDS: Ferrous Sulfate 325 MG Tab PO SCH ×2 (09:14→17:53)
[2021-02-05] MEDS: Aspirin 325 MG Tab.EC PO SCH (09:14)
[2021-02-05] MEDS: Heparin Sodium 5,000 Units/ML Vial SUBCUT SCH ×2 (09:15→21:03)
[2021-02-05] MEDS: Lidocaine 5% 700 MG Patch TOP SCH (09:17)
[2021-02-05] MEDS: SITAGLIPTIN 100 MG PO SCH (09:18)
[2021-02-05] MEDS: Nystatin Crm 15 GM Tube TOP SCH ×2 (09:18→20:55)
[2021-02-05] MEDS: Insulin Lispro 100 Units/ML 3 ML Vial SUBCUT SCH ×4 (09:20→20:59)
[2021-02-05] MEDS: Allopurinol 300 MG Tab PO SCH (17:51)
[2021-02-05] MEDS: Simvastatin 40 MG Tab PO SCH (17:52)
[2021-02-05] MEDS: Pantoprazole 40 MG Tab.CR PO SCH (17:53)
[2021-02-05] MEDS: Tamsulosin 0.4 MG Cap.ER PO SCH (17:53)
[2021-02-05] MEDS: Zolpidem 5 MG Tab PO PRN (20:53)
[2021-02-05] MEDS: Acetaminophen 325 MG Tab PO PRN (20:53)
[2021-02-05] MEDS: Insulin Glarg,Human.Rec.Analog 100 Unit/ML SUBCUT SCH (21:01)
[2021-02-06] MEDS: Levothyroxine 125 MCG Tab PO SCH (05:51)
[2021-02-06] MEDS: Insulin Lispro 100 Units/ML 3 ML Vial SUBCUT SCH ×4 (08:18→21:04)
[2021-02-06] MEDS: Ascorbic Acid 500 MG Tab PO SCH (08:59)
[2021-02-06] MEDS: Glimepiride 2 MG Tab PO SCH ×2 (09:00→17:24)
[2021-02-06] MEDS: Multivitamin Tab PO SCH (09:01)
[2021-02-06] MEDS: Gabapentin 300 MG Cap PO SCH ×2 (09:01→21:02)
[2021-02-06] MEDS: Aspirin 325 MG Tab.EC PO SCH (09:01)
[2021-02-06] MEDS: Ferrous Sulfate 325 MG Tab PO SCH ×2 (09:01→17:24)
[2021-02-06] MEDS: oxyCODONE 5 MG Tab PO PRN (09:01)
[2021-02-06] MEDS: Carvedilol 6.25 MG Tab PO SCH ×2 (09:02→17:25)
[2021-02-06] MEDS: Heparin Sodium 5,000 Units/ML Vial SUBCUT SCH ×2 (09:03→21:01)
[2021-02-06] MEDS: SITAGLIPTIN 100 MG PO SCH (09:04)
[2021-02-06] MEDS: Lidocaine 5% 700 MG Patch TOP SCH (09:05)
[2021-02-06] MEDS: Nystatin Crm 15 GM Tube TOP SCH ×2 (09:05→22:00)
[2021-02-06] MEDS: Pantoprazole 40 MG Tab.CR PO SCH (16:55)
[2021-02-06] MEDS: Simvastatin 40 MG Tab PO SCH (17:24)
[2021-02-06] MEDS: Tamsulosin 0.4 MG Cap.ER PO SCH (17:24)
[2021-02-06] MEDS: Allopurinol 300 MG Tab PO SCH (17:24)
[2021-02-06] MEDS: Magnesium Hydroxide 400 MG/5 ML Susp 30 ML Cup PO PRN (21:01)
[2021-02-06] MEDS: Zolpidem 5 MG Tab PO PRN (21:02)
[2021-02-06] MEDS: Acetaminophen 325 MG Tab PO PRN (21:02)
[2021-02-06] MEDS: Insulin Glarg,Human.Rec.Analog 100 Unit/ML SUBCUT SCH (21:05)
[2021-02-07] MEDS: Levothyroxine 125 MCG Tab PO SCH (07:01)
--- NOTE | 2021-02-07 07:48 | PCM.DCSUM1 ---
Discharge Summary - Hospital Course Free Text/Narrative:: START OF DOCTOR [facility]A DISCHARGE SUMMARY Date of Admission: January 07, 2021 Date of Discharge: 7:43 AM on February 07, 2021 Primary Diagnosis: Status post admission to swing bed status from January 07, 2021 until January 29, 2021 as the patient is status post right long gamma nail fixation of right intertrochanteric fracture for which patient underwent rehabilitation Secondary Diagnosis: Urinary tract infection, urine culture positive for Enterococcus faecalis and Pseudomonas aeruginosa, patient status post treatment Elevated PSA for which patient will follow up with urology as directed Hypothyroidism Seasonal allergies Gout Neuropathy History of TIA Osteoarthritis Erectile dysfunction BPH Iron deficiency anemia COPD Coronary artery disease Diabetes GERD Hyperlipidemia Hypertension Obesity Chronic kidney disease, baseline creatinine ranges between 2 and 3.6 Chronic pain History of nephrolithiasis Degenerative disc disease Diverticulosis Consultations: None Condition on Discharge: Fair Disposition: The patient will be advised to follow-up with orthopedic surgery as directed for follow-up as he is status post right long gamma nail fixation of right intertrochanteric fracture Patient is advised follow-up with urology as directed for his history of elevated PSA The patient is advised follow-up with nephrology 2 to 4 weeks post discharge or as directed for his history of chronic kidney disease with baseline creatinine ranging between 2 and 3.6 The patient is advised to follow-up with his primary care physician or with a provider 7 to 10 days post discharge for posthospitalization evaluation Home health to follow patient. longterm for medication management and bathing assistance. Physical therapy for strengthening and mobility as well as occupational therapy for a home assessment and ADLs. Patient requires assist of 1 and a walker Discharge Medications: Senna plus: 1 tab p.o. every 12 hours Vitamin C 250 mg p.o. daily Allopurinol 150 mg p.o. nightly Tylenol 650 mg p.o. every 4 hours as needed mild pain Ozempic 0.5 mg subcutaneously weekly Insulin glargine 24 units subcutaneously nightly Gabapentin 600 mg p.o. twice daily Flomax 0.4 mg p.o. nightly Januvia 50 mg p.o. daily Zocor 40 mg p.o. nightly Protonix 40 mg p.o. nightly Oxycodone 5 mg p.o. every 8 hours as needed severe pain. Quantity 20. 0 refills Multivitamin 1 tab p.o. daily Lidocaine 5% patch to be applied to affected area for 12 hours daily as needed pain. Quantity 10. 0 refills Synthroid 105 mg p.o. daily Glimepiride 4 mg p.o. twice daily Ferrous sulfate 3 and 25 mg p.o. twice daily Coreg 6.25 mg p.o. twice daily Aspirin 325 mg p.o. daily END OF DOCTOR EMAMIS DISCHARGE SUMMARY - Discharge Data Discharge Date: 02/07/21 Discharge Disposition: Home, Self-Care 01 Condition: Fair - Referral to Home Health Primary Care Physician: Darnell Lombardi MD - Patient Summary/Data Consults: Consultations 01/07/21 15:40 OT Evaluation and Treatment [CONS] Routine PT Evaluation and Treatment [CONS] Routine - Patient Instructions Diet: Heart Healthy Diet, Low Sodium, Diabetic Diet, Renal Diet Activity: As Tolerated - Discharge Plan Prescriptions/Med Rec: Ferrous Sulfate 325 mg PO BIDMEALS 30 Days #60 tablet Lidocaine 5% [Lidoderm 5%] 700 mg TOP DAILY PRN 10 Days #10 patch PRN Reason: Pain oxyCODONE 5 mg PO Q8HR PRN 30 Days #20 PRN Reason: Pain (Severe 7-10) Docusate Sodium/Sennosides [Senna Plus] 1 tab PO Q12HR 30 Days #60 tablet Ascorbic Acid [Vitamin C] 250 mg PO DAILY 30 Days #30 tablet Home Medications: Home Meds Glimepiride 4 mg PO BIDMEALS 08/14/14 [History] Multivitamin [Multi-Vitamin Daily] 1 tab PO DAILY 08/14/14 [History] Pantoprazole Sodium 40 mg PO WITHDINNER 08/14/14 [History] Simvastatin 40 mg PO WITHDINNER 08/14/14 [History] Tamsulosin HCl 0.4 mg PO WITHDINNER 08/14/14 [History] allopurinoL [Allopurinol] 150 mg PO WITHDINNER 08/14/14 [History] SitaGLIPtin [Januvia] 50 mg PO DAILY 02/28/17 [History] Aspirin [Aspirin EC] 325 mg PO DAILY 01/07/21 [History] Gabapentin [Neurontin] 600 mg PO BID 01/07/21 [History] Insulin Glarg,Human.Rec.Analog [Lantus] 24 unit SUBCUT BEDTIME 01/07/21 [History] Levothyroxine 125 mcg PO ACBREAKFAST 01/07/21 [History] Semaglutide [Ozempic] 0.5 mg SUBCUT .ONCE WEEKLY 01/07/21 [History] carvediloL [Carvedilol] 6.25 mg PO BID 01/07/21 [History] Acetaminophen [Tylenol] 650 mg PO Q4H PRN tablet 02/07/21 [Rx] Ascorbic Acid [Vitamin C] 250 mg PO DAILY 30 Days #30 tablet 02/07/21 [Rx] Docusate Sodium/Sennosides [Senna Plus] 1 tab PO Q12HR 30 Days #60 tablet 02/07/21 [Rx] Ferrous Sulfate 325 mg PO BIDMEALS 30 Days #60 tablet 02/07/21 [Rx] Lidocaine 5% [Lidoderm 5%] 700 mg TOP DAILY PRN 10 Days #10 patch 02/07/21 [Rx] oxyCODONE 5 mg PO Q8HR PRN 30 Days #20 02/07/21 [Rx] Referrals: Darnell Lombardi MD [Primary Care Provider] - - Discharge Summary/Plan Comment DC Time >30 min.: Yes - General Info Date of Service: 02/07/21 Functional Status: Reports: Pain Controlled - Review of Systems General: Reports: No Symptoms HEENT: Reports: No Symptoms Pulmonary: Reports: No Symptoms Cardiovascular: Reports: No Symptoms Gastrointestinal: Reports: No Symptoms Genitourinary: Reports: No Symptoms Musculoskeletal: Reports: No Symptoms Skin: Reports: No Symptoms Neurological: Reports: No Symptoms Psychiatric: Reports: No Symptoms - Patient Data Vitals - Most Recent: Last Vital Signs Temp 98.2 F 02/06/21 20:00 Pulse 85 02/06/21 20:00 Resp 20 02/06/21 20:00 BP 115/65 02/06/21 20:00 Pulse Ox 98 02/06/21 20:00 Weight - Most Recent: 206 lb 9.6 oz I&O - Last 24 hours: Intake & Output 02/06/21 02/07/21 02/07/21 22:59 06:59 14:59 Intake Total 350 0 Output Total 550 Balance -200 0 Lab Results - Last 24 hrs: Laboratory Results - last 24 hr 02/06/21 02/06/21 02/06/21 Range/Units 08:04 11:51 17:01 POC Glucose 134 H 202 H 216 H (70-99) mg/dL Med Orders - Current: Current Medications Acetaminophen (Acetaminophen 325 Mg Tab) 650 mg PO Q4H PRN PRN Reason: Pain (Mild 1-3)/fever Last Admin: 02/06/21 21:02 Dose: 650 mg Documented by: Allopurinol (Allopurinol 300 Mg Tab) 150 mg PO WITHDINNER [facility] Last Admin: 02/06/21 17:24 Dose: 150 mg Documented by: Ascorbic Acid (Ascorbic Acid 500 Mg Tab) 250 mg PO DAILY [facility] Last Admin: 02/06/21 08:59 Dose: 250 mg Documented by: Aspirin (Aspirin 325 Mg Tab.Ec) 325 mg PO DAILY [facility] Last Admin: 02/06/21 09:01 Dose: 325 mg Documented by: Carvedilol (Carvedilol 6.25 Mg Tab) 6.25 mg PO BIDMEALS [facility] Last Admin: 02/06/21 17:25 Dose: 6.25 mg Documented by: Dextrose/Water (50% Dextrose In Water 50 Ml Syringe) 50 ml IVPUSH Q15M PRN PRN Reason: Hypoglycemia Ferrous Sulfate (Ferrous Sulfate 325 Mg Tab) 325 mg PO BIDMEALS [facility] Last Admin: 02/06/21 17:24 Dose: 325 mg Documented by: Gabapentin (Gabapentin 300 Mg Cap) 300 mg PO BID [facility] Last Admin: 02/06/21 21:02 Dose: 300 mg Documented by: Glimepiride (Glimepiride 2 Mg Tab) 4 mg PO BIDMEALS [facility] Last Admin: 02/06/21 17:24 Dose: 4 mg Documented by: Glucagon (Glucagon,Human Recombinant 1 Mg Vial) 1 mg IM Q15M PRN PRN Reason: Hypoglycemia Heparin Sodium (Porcine) (Heparin Sodium 5,000 Units/Ml Vial) 5,000 units SUBCUT Q12HR [facility] Last Admin: 02/06/21 21:01 Dose: 5,000 units Documented by: Insulin Glargine (Insulin Glarg,Human.Rec.Analog 100 Unit/Ml) 19 unit SUBCUT BEDTIME [facility] Last Admin: 02/06/21 21:05 Dose: 19 units Documented by: Insulin Human Lispro (Insulin Lispro 100 Units/Ml 3 Ml Vial) 0 unit SUBCUT WITH[facility]ALSANDBED [facility]; Protocol Last Admin: 02/06/21 21:04 Dose: 2 units Documented by: Levothyroxine Sodium (Levothyroxine 125 Mcg Tab) 125 mcg PO ACBREAKFAST [facility] Last Admin: 02/07/21 07:01 Dose: 125 mcg Documented by: Lidocaine (Lidocaine 5% 700 Mg Patch) 700 mg TOP DAILY [facility] Last Admin: 02/06/21 09:05 Dose: 700 mg Documented by: Magnesium Hydroxide (Magnesium Hydroxide 400 Mg/5 Ml Susp 30 Ml Cup) 30 ml PO Q12H PRN PRN Reason: Constipation Last Admin: 02/06/21 21:01 Dose: 30 ml Documented by: Miscellaneous Information (Remove Lidocaine Patch) 1 ea TOP BEDTIME [facility] Last Admin: 02/06/21 22:00 Dose: 1 ea Documented by: Multivitamins/Minerals/Vitamin C (Multivitamin Tab) 1 tab PO DAILY [facility] Last Admin: 02/06/21 09:01 Dose: 1 tab Documented by: Nystatin (Nystatin Crm 15 Gm Tube) 0 gm TOP BID [facility] Last Admin: 02/06/21 22:00 Dose: 1 applic Documented by: Ondansetron HCl (Ondansetron 4 Mg Tab.Dis) 4 mg PO Q4H PRN PRN Reason: nausea, able to take PO Oxycodone HCl (Oxycodone 5 Mg Tab) 5 mg PO Q8HR PRN PRN Reason: Pain (severe 7-10) Last Admin: 02/06/21 09:01 Dose: 5 mg Documented by: Pantoprazole Sodium (Pantoprazole 40 Mg Tab.Cr) 40 mg PO ACDINNER [facility] Last Admin: 02/06/21 16:55 Dose: 40 mg Documented by: Sitagliptin (Januvia ) 100 Mg Tablet Pt Own Med 0 each PO DAILY [facility] Last Admin: 02/06/21 09:04 Dose: 1 each Documented by: Senna/Docusate Sodium (Docusate Sodium/Sennosides 50-8.6 Mg Tab) 1 tab PO Q12HR [facility] Last Admin: 02/06/21 21:02 Dose: 1 tab Documented by: Simvastatin (Simvastatin 40 Mg Tab) [facility] Last Admin: 02/06/21 17:24 Dose: 40 mg Documented by: Tamsulosin HCl (Tamsulosin 0.4 Mg Cap.Er) [facility] Last Admin: 02/06/21 17:24 Dose: 0.4 mg Documented by: Zolpidem Tartrate (Zolpidem 5 Mg Tab) 5 mg PO BEDTIME PRN PRN Reason: Insomnia Last Admin: 02/06/21 21:02 Dose: 5 mg Documented by: Discontinued Medications Ceftriaxone Sodium (Ceftriaxone 1 Gm Vial) 1 gm IM Q24H [facility] Last Admin: 01/26/21 21:57 Dose: 1 gm Documented by: Dextrose/Water (50% Dextrose In Water 50 Ml Syringe) 50 ml IVPUSH Q15M PRN PRN Reason: Hypoglycemia Gabapentin (Gabapentin 300 Mg Cap) 600 mg PO BID [facility] Last Admin: 01/08/21 09:50 Dose: 600 mg Documented by: Glucagon (Glucagon,Human Recombinant 1 Mg Vial) 1 mg IM Q15M PRN PRN Reason: Hypoglycemia Insulin Glargine (Insulin Glarg,Human.Rec.Analog 100 Unit/Ml) 24 unit SUBCUT BEDTIME [facility] Insulin Glargine (Insulin Glarg,Human.Rec.Analog 100 Unit/Ml [employer] Med) 24 unit SUBCUT BEDTIME [facility] Last Admin: 01/22/21 21:07 Dose: 24 units Documented by: Levofloxacin (Levofloxacin 500 Mg Tab) 500 mg PO Q24H [facility] Stop: 02/03/21 09:01 Last Admin: 02/03/21 08:23 Dose: 500 mg Documented by: Lidocaine HCl (Lidocaine 1% 30 Ml Sdv) 2.1 ml .XX Q24H [facility] Last Admin: 01/27/21 23:43 Dose: Not Given Documented by: Nystatin (Nystatin Topical Powder 30 Gm Bottle) 0 gm TOP BID [facility] Last Admin: 01/19/21 09:23 Dose: 1 applic Documented by: Semaglutide [Ozempic ] 2 Mg/1.5 Ml Pen. Injctr Pt Own Med* * 0 each SUBCUT Tu@0900 [facility] Last Admin: 01/29/21 10:47 Dose: Not Given Documented by: Senna/Docusate Sodium (Docusate Sodium/Sennosides 50-8.6 Mg Tab) 1 tab PO Q12H [facility] Last Admin: 01/25/21 09:37 Dose: 1 tab Documented by: Trimethoprim/Sulfamethoxazole (Sulfamethoxazole/Trimethoprim 800-160 Mg Tab) 1 tab PO BID [facility] Stop: 01/30/21 23:59 Last Admin: 01/27/21 20:42 Dose: 1 tab Documented by: - Exam General: Reports: Alert, Oriented HEENT: Reports: Pupils Equal, Pupils Reactive, EOMI, Mucous Membr. Moist/Echo Neck: Reports: Supple Lungs: Reports: Clear to Auscultation, Normal Respiratory Effort Cardiovascular: Reports: Regular Rate, Regular Rhythm GI/Abdominal Exam: Normal Bowel Sounds, Soft, Non-Tender, No Organomegaly, No Distention, No Abnormal Bruit, No Mass, Pelvis Stable Back Exam: Reports: Normal Inspection, Full Range of Motion Extremities: Normal Inspection, Normal Range of Motion, Non-Tender, No Pedal Edema, Normal Capillary Refill Skin: Reports: Warm, Dry, Intact Wound/Incisions: Reports: Healing Well Neurological: Reports: No New Focal Deficit Psy/Mental Status: Reports: Alert, Normal Affect, Normal Mood
[2021-02-07 08:14] VITALS: BP 117/65; PULSE 86
[2021-02-07] MEDS: Glimepiride 2 MG Tab PO SCH (09:07)
[2021-02-07] MEDS: Carvedilol 6.25 MG Tab PO SCH (09:07)
[2021-02-07] MEDS: Gabapentin 300 MG Cap PO SCH (09:07)
[2021-02-07] MEDS: Multivitamin Tab PO SCH (09:07)
[2021-02-07] MEDS: Aspirin 325 MG Tab.EC PO SCH (09:08)
[2021-02-07] MEDS: Ferrous Sulfate 325 MG Tab PO SCH (09:08)
[2021-02-07] MEDS: Insulin Lispro 100 Units/ML 3 ML Vial SUBCUT SCH (09:08)
[2021-02-07] MEDS: Ascorbic Acid 500 MG Tab PO SCH (09:08)
[2021-02-07] MEDS: oxyCODONE 5 MG Tab PO PRN (09:09)
[2021-02-07] MEDS: Heparin Sodium 5,000 Units/ML Vial SUBCUT SCH (09:11)
[2021-02-07] MEDS: Lidocaine 5% 700 MG Patch TOP SCH (09:15)
[2021-02-07] MEDS: Nystatin Crm 15 GM Tube TOP SCH (09:16)
[2021-02-07] MEDS: SITAGLIPTIN 100 MG PO SCH (09:16)
== END 2021-02-07 10:45 | disposition home or self-care (01) | DRG 560 ==
LOC: DL.MS 13:08
PROVIDERS: ADMIT Internal Medicine; ATTEND Internal Medicine
DX: S72.141D Displaced intertrochanteric fracture of right femur, subsequent encounter for closed fracture with routine healing (principal); N39.0 Urinary tract infection, site not specified; B95.2 Enterococcus as the cause of diseases classified elsewhere; B96.5 Pseudomonas (aeruginosa) (mallei) (pseudomallei) as the cause of diseases classified elsewhere; E03.9 Hypothyroidism, unspecified; R97.20 Elevated prostate specific antigen [PSA]; M10.9 Gout, unspecified; E11.42 Type 2 diabetes mellitus with diabetic polyneuropathy; M19.90 Unspecified osteoarthritis, unspecified site; N40.0 Benign prostatic hyperplasia without lower urinary tract symptoms; J44.9 Chronic obstructive pulmonary disease, unspecified; K21.9 Gastro-esophageal reflux disease without esophagitis; N52.9 Male erectile dysfunction, unspecified; K57.90 Diverticulosis of intestine, part unspecified, without perforation or abscess without bleeding; E66.9 Obesity, unspecified; N18.9 Chronic kidney disease, unspecified; E78.5 Hyperlipidemia, unspecified; I25.10 Atherosclerotic heart disease of native coronary artery without angina pectoris; D50.9 Iron deficiency anemia, unspecified; I12.9 Hypertensive chronic kidney disease with stage 1 through stage 4 chronic kidney disease, or unspecified chronic kidney disease; E11.22 Type 2 diabetes mellitus with diabetic chronic kidney disease; D63.1 Anemia in chronic kidney disease; H54.7 Unspecified visual loss; E78.00 Pure hypercholesterolemia, unspecified; Z98.42 Cataract extraction status, left eye; Z28.82 Immunization not carried out because of caregiver refusal; Z86.73 Personal history of transient ischemic attack (TIA), and cerebral infarction without residual deficits; Z87.442 Personal history of urinary calculi; Z88.8 Allergy status to other drugs, medicaments and biological substances; Z79.4 Long term (current) use of insulin; Z79.899 Other long term (current) drug therapy; Z87.891 Personal history of nicotine dependence; Z98.41 Cataract extraction status, right eye; Z68.27 Body mass index [BMI] 27.0-27.9, adult
CPT/HCPCS: 36415; 51798; 80053; 81001; 82272; 82728; 82947; 83540; 83550; 84153; 85018; 85025; 85610; 85730; 87086; 87088; 87186; 97110-GO; 97110-GP; 97116-GP; 97161-GP; 97166-GO; 97530-GO; 97530-GP; 97535-GO; A9270-GY; J0696; J1644; J1815-GY

== ENCOUNTER 2021-02-14 23:58 | Inpatient (IN) | payer MEDICARE, BC ==
--- NOTE | 2021-02-15 00:58 | CT ---
PROCEDURE INFORMATION: Exam: CT Head Without Contrast Exam date and time: 02/15/2021 12:22 AM Age: 89 years old Clinical indication: Other: Weak; Additional info: Weak fell hit head on toilet TECHNIQUE: Imaging protocol: Computed tomography of the head without contrast. Radiation optimization: All CT scans at this facility use at least one of these dose optimization techniques: automated exposure control; mA and/or kV adjustment per patient size (includes targeted exams where dose is matched to clinical indication); or iterative reconstruction. COMPARISON: No relevant prior studies available. FINDINGS: Brain: Moderate white matter disease is nonspecific, but most likely due to a chronic small vessel ischemia. Cerebral ventricles: No ventriculomegaly. Paranasal sinuses: Visualized sinuses are unremarkable. No fluid levels. Mastoid air cells: Visualized mastoid air cells are well aerated. Bones/joints: Unremarkable. No acute fracture. Soft tissues: Unremarkable. Other findings: Motion limits exam. IMPRESSION: No acute intracranial pathology
--- NOTE | 2021-02-15 01:02 | CT ---
PROCEDURE INFORMATION: Exam: CT Chest Without Contrast; Diagnostic Exam date and time: 02/15/2021 12:22 AM Age: 89 years old Clinical indication: Other: Weakness; Prior surgery; Surgery date: 1-6 months; Surgery type: Right hip; Additional info: Weak fell hit head on toilet TECHNIQUE: Imaging protocol: Diagnostic computed tomography of the chest without contrast. Radiation optimization: All CT scans at this facility use at least one of these dose optimization techniques: automated exposure control; mA and/or kV adjustment per patient size (includes targeted exams where dose is matched to clinical indication); or iterative reconstruction. COMPARISON: No relevant prior studies available. FINDINGS: Lungs: Unremarkable. No consolidation. No masses. Pleural spaces: Unremarkable. No pneumothorax. No pleural effusion. Heart: Coronary artery calcifications are identified, considered a risk factor for coronary artery disease. Aorta: Unremarkable. No aortic aneurysm. Lymph nodes: Unremarkable. No enlarged lymph nodes. Bones/joints: Unremarkable. No acute fracture. Soft tissues: Unremarkable. IMPRESSION: No acute abnormality within the chest. PROCEDURE INFORMATION: Exam: CT Abdomen And Pelvis Without Contrast Exam date and time: 02/15/2021 12:22 AM Age: 89 years old Clinical indication: Other: Weakness; Prior surgery; Surgery date: 1-6 months; Surgery type: Right hip; Additional info: Weak fell hit head on toilet TECHNIQUE: Imaging protocol: Computed tomography of the abdomen and pelvis without contrast. Radiation optimization: All CT scans at this facility use at least one of these dose optimization techniques: automated exposure control; mA and/or kV adjustment per patient size (includes targeted exams where dose is matched to clinical indication); or iterative reconstruction. COMPARISON: No relevant prior studies available. FINDINGS: Liver: Normal. No mass. Gallbladder and bile ducts: Normal. No calcified stones. No ductal dilation. Pancreas: Normal. No ductal dilation. Spleen: Normal. No splenomegaly. Adrenal glands: Normal. No mass. Kidneys and ureters: Normal. No hydronephrosis. Stomach and bowel: Unremarkable. No obstruction. No mucosal thickening. Appendix: No evidence of appendicitis. Intraperitoneal space: Unremarkable. No free air. No significant fluid collection. Vasculature: Unremarkable. No abdominal aortic aneurysm. Lymph nodes: Unremarkable. No enlarged lymph nodes. Urinary bladder: Unremarkable as visualized. Reproductive: Unremarkable as visualized. Bones/joints: Postoperative changes of right femoral intramedullary chris placement and femoral neck compression screw, with healing comminuted fracture of the proximal femur. Soft tissues: Unremarkable. IMPRESSION: 1. No acute abnormality within the abdomen or pelvis. 2. Healing right hip fracture, the acute fracture is identified on a plain film dated 12/30/2020.
--- NOTE | 2021-02-15 01:02 | CT ---
PROCEDURE INFORMATION: Exam: CT Cervical Spine Without Contrast Exam date and time: 02/15/2021 12:22 AM Age: 89 years old Clinical indication: Weakness; Additional info: Weak fell hit head on toilet TECHNIQUE: Imaging protocol: Computed tomography images of the cervical spine without contrast. Radiation optimization: All CT scans at this facility use at least one of these dose optimization techniques: automated exposure control; mA and/or kV adjustment per patient size (includes targeted exams where dose is matched to clinical indication); or iterative reconstruction. COMPARISON: No relevant prior studies available. FINDINGS: Bones/joints: Bones appear osteopenic. No malalignment. No fracture. Discs/Spinal canal/Neural foramina: Bulky bilateral facet arthropathy. Moderate multilevel degenerative disc disease. Moderate multilevel neural foraminal stenosis. Lungs: Lung apices are normal. Soft tissues: Unremarkable. IMPRESSION: No evidence of acute osseous injury
[2021-02-15 01:21] LABS: ANION GAP 12.7 mEq/L (7-13); CHLORIDE,CL 102 mmol/L (98-107); SODIUM,NA 137 mmol/L (136-145)
--- NOTE | 2021-02-15 01:51 | EDM.PDOC ---
ED HPI GENERAL MEDICAL PROBLEM - General Chief Complaint: Trauma Stated Complaint: AMBULANCE Time Seen by Provider: 02/15/21 00:15 Source of Information: Reports: Patient, Family, RN History Limitations: Reports: No Limitations - History of Present Illness INITIAL COMMENTS - FREE TEXT/NARRATIVE: ED via [facility] , reported fall at home, Got up to [place] by himself reports legs gave out fell hit buttocks, on floor back and head against tolet. No known loss of consciousness. Reported hit back of head, Denied neck or upper back pain. Reported low back and right hip pain. Family report patient likely very tired today. Family activities yesterday and then had follow up Dr appointment in [place] today. Usually has been waking Significant Other to assist with toileting but told family he didn't want to wake her tonight and thought could do on his own. GCS 15. No Cocollar on arrival - Related Data Allergies Allergy/AdvReac Type Severity Reaction Status Date / Time quinapril Allergy Cough Verified 01/07/21 12:18 Home Meds: Home Meds Glimepiride 4 mg PO BIDMEALS 08/14/14 [History] Multivitamin [Multi-Vitamin Daily] 1 tab PO DAILY 08/14/14 [History] Pantoprazole Sodium 40 mg PO WITHDINNER 08/14/14 [History] Simvastatin 40 mg PO WITHDINNER 08/14/14 [History] Tamsulosin HCl 0.4 mg PO WITHDINNER 08/14/14 [History] allopurinoL [Allopurinol] 150 mg PO WITHDINNER 08/14/14 [History] SitaGLIPtin [Januvia] 100 mg PO DAILY 02/28/17 [History] Aspirin [Aspirin EC] 325 mg PO DAILY 01/07/21 [History] Gabapentin [Neurontin] 600 mg PO BID 01/07/21 [History] Insulin Glarg,Human.Rec.Analog [Lantus] 24 unit SUBCUT BEDTIME 01/07/21 [History] Levothyroxine 125 mcg PO ACBREAKFAST 01/07/21 [History] carvediloL [Carvedilol] 6.25 mg PO BID 01/07/21 [History] Acetaminophen [Tylenol] 650 mg PO Q4H PRN tablet 02/07/21 [Rx] Ascorbic Acid [Vitamin C] 250 mg PO DAILY 30 Days #30 tablet 02/07/21 [Rx] Ferrous Sulfate 325 mg PO BIDMEALS 30 Days #60 tablet 02/07/21 [Rx] Lidocaine 5% [Lidoderm 5%] 700 mg TOP DAILY PRN 10 Days #10 patch 02/07/21 [Rx] oxyCODONE 5 mg PO Q8HR PRN 30 Days #20 02/07/21 [Rx] Docusate Sodium/Sennosides [Senna Plus] 1 tab PO BID 02/15/21 [History] Past Medical History HEENT History: Reports: Impaired Vision Cardiovascular History: Reports: CAD, High Cholesterol, Hypertension Gastrointestinal History: Reports: GERD Genitourinary History: Reports: BPH Musculoskeletal History: Reports: Back Pain, Chronic, Gout, Osteoarthritis Neurological History: Reports: TIA Other Neuro History: 1992- Endocrine/Metabolic History: Reports: Diabetes, Type II, Hypothyroidism - Past Surgical History HEENT Surgical History: Reports: Cataract Surgery Cardiovascular Surgical History: Reports: None GI Surgical History: Reports: None, Colonoscopy Male Surgical History: Reports: Kidney Stone Extraction Endocrine Surgical History: Reports: None Neurological Surgical History: Reports: None Musculoskeletal Surgical History: Reports: ORIF, Other (See Below) Other Musculoskeletal Surgeries/Procedures:: femure fracture 2020 with ORIF Dermatological Surgical History: Reports: None Social & Family History - Family History Family Medical History: No Pertinent Family History - Caffeine Use Caffeine Use: Reports: Coffee - Living Situation & Occupation Living situation: Reports: , with Significant Other Occupation: Retired Review of Systems - Review of Systems Review Of Systems: Comprehensive ROS is negative, except as noted in HPI. ED EXAM, GENERAL - Physical Exam Exam: See Below Exam Limited By: No Limitations General Appearance: Alert, No Apparent Distress, Other (elderly appearing stated age) Eye Exam: Bilateral Eye: EOMI Ears: Normal External Exam, Hearing Loss Nose: Normal Inspection Throat/Mouth: Normal Inspection, Normal Voice, No Airway Compromise Head: Atraumatic, Normocephalic, Other (no bruising, or tenderness ot scalp) Neck: Normal Inspection, Full Range of Motion Respiratory/Chest: No Respiratory Distress, Lungs Clear, Normal Breath Sounds. No: Splinting Cardiovascular: Normal Peripheral Pulses, Regular Rate, Rhythm. No: No Edema (trace ) GI/Abdominal: Normal Bowel Sounds, Soft, Non-Tender Back Exam: No: CVA Tenderness (L), CVA Tenderness (R), Decreased Range of Motion, Paraspinal Tenderness, Vertebral Tenderness Extremities: Leg Pain ( right hip recent surgical repair incision CDI). No: No Pedal Edema (trace bialteral) Neurological: Alert, Oriented, Other (GCS 15) Psychiatric: Flat Affect Skin Exam: Warm, Dry, Intact, Ecchymosis (abdomen, greenish dark discoloration patchy right lower abdomen, greater mid to lower left ) #1 Interpretation EKG Date: 02/15/21 Time: 02:10 Rhythm: NSR Rate (Beats/Min): 98 [place]: Normal P-Wave: Present QRS: Normal ST-T: Normal Course - Vital Signs Last Recorded V/S: Last Vital Signs Temp 98.3 F 02/15/21 03:13 Pulse 97 02/15/21 03:13 Resp 18 02/15/21 03:13 BP 127/63 02/15/21 03:13 Pulse Ox 97 02/15/21 03:13 - Orders/Labs/Meds Orders: Active Orders 24 hr Category Date Time Status EKG 12 Lead [EKG Documentation Completion] [RC] URGENT Care 02/15/21 02:02 Active Medication Orders Acetaminophen (Acetaminophen 325 Mg Tab) 650 mg PO Q4H PRN PRN Reason: Pain (Mild 1-3)/fever Dextrose/Water (50% Dextrose In Water 50 Ml Syringe) 50 ml IVPUSH Q15M PRN PRN Reason: Hypoglycemia Glucagon (Glucagon,Human Recombinant 1 Mg Vial) 1 mg IM Q15M PRN PRN Reason: Hypoglycemia Heparin Sodium (Porcine) (Heparin Sodium 5,000 Units/Ml Vial) 5,000 units SUBCUT Q12HR [facility] Sodium Chloride (Normal Saline) 1,000 mls @ 75 mls/hr IV ASDIRECTED THANH Last Admin: 02/15/21 04:13 Dose: 75 mls/hr Documented by: [email or web address] Insulin Human Lispro (Insulin Lispro 100 Units/Ml 3 Ml Vial) 0 unit SUBCUT WITHMEALSANDBED THANH; Protocol Ondansetron HCl (Ondansetron 4 Mg/2 Ml Sdv) 4 mg IVPUSH Q4H PRN PRN Reason: Nausea/Vomiting Sodium Chloride (Sodium Chloride 0.9% 10 Ml Syringe) 10 ml FLUSH ASDIRECTED PRN PRN Reason: Keep Vein Open Labs: Laboratory Tests 02/15/21 02/15/21 02/15/21 Range/Units 00:50 00:50 00:50 WBC 9.4 (5.0-10.0) 10^3/uL RBC 3.83 L (4.6-6.2) 10^6/uL Hgb 11.4 L D (14.0-18.0) g/dL Hct 36.4 L (40.0-54.0) % MCV 95.0 (80-100) fL MCH 29.8 (27.0-34.0) pg MCHC 31.3 L (33.0-35.0) g/dL Plt Count 260 (150-450) 10^3/uL Neut % (Auto) 73.6 (42.2-75.2) % Lymph % (Auto) 15.0 L (20.5-50.1) % [place] % (Auto) 10.0 H (2-8) % Eos % (Auto) 1.0 (1.0-3.0) % Baso % (Auto) 0.4 (0.0-1.0) % PT 10.3 (9.0-12.0) SEC INR 1.0 (0.9-1.2) Sodium 137 (136-145) mmol/L Potassium 4.7 (3.5-5.1) mmol/L Chloride 102 (98-107) mmol/L Carbon Dioxide 27 (21-32) mmol/L Anion Gap 12.7 (7-13) mEq/L BUN 31 H (7-18) mg/dL Creatinine 1.94 H (0.70-1.30) mg/dL Est Cr Clr Drug Dosing TNP Estimated GFR (MDRD) 33 BUN/Creatinine Ratio 16.0 (No establ ref range) Glucose 208 H (70-99) mg/dL Calcium 8.4 L (8.5-10.1) mg/dL Magnesium 1.9 (1.8-2.4) mg/dL Total Bilirubin 0.7 (0.2-1.0) mg/dL AST 17 (15-37) U/L ALT 23 (16-63) U/L Alkaline Phosphatase 178 H (46-116) U/L Total Protein 6.9 (6.4-8.2) g/dL Albumin 2.8 L (3.4-5.0) g/dL Globulin 4.1 Albumin/Globulin Ratio 0.68 SARS CoV-2 RNA Rapid ALLYSSA (NEGATIVE) 02/15/21 Range/Units 02:07 WBC (5.0-10.0) 10^3/uL RBC (4.6-6.2) 10^6/uL Hgb (14.0-18.0) g/dL Hct (40.0-54.0) % MCV (80-100) fL MCH (27.0-34.0) pg MCHC (33.0-35.0) g/dL Plt Count (150-450) 10^3/uL Neut % (Auto) (42.2-75.2) % Lymph % (Auto) (20.5-50.1) % [place] % (Auto) (2-8) % Eos % (Auto) (1.0-3.0) % Baso % (Auto) (0.0-1.0) % PT (9.0-12.0) SEC INR (0.9-1.2) Sodium (136-145) mmol/L Potassium (3.5-5.1) mmol/L Chloride (98-107) mmol/L Carbon Dioxide (21-32) mmol/L Anion Gap (7-13) mEq/L BUN (7-18) mg/dL Creatinine (0.70-1.30) mg/dL Est Cr Clr Drug Dosing Estimated GFR (MDRD) BUN/Creatinine Ratio (No establ ref range) Glucose (70-99) mg/dL Calcium (8.5-10.1) mg/dL Magnesium (1.8-2.4) mg/dL Total Bilirubin (0.2-1.0) mg/dL AST (15-37) U/L ALT (16-63) U/L Alkaline Phosphatase (46-116) U/L Total Protein (6.4-8.2) g/dL Albumin (3.4-5.0) g/dL Globulin Albumin/Globulin Ratio SARS CoV-2 RNA Rapid ALLYSSA Negative (NEGATIVE) Meds: Medications Generic Name Dose Route Start Last Admin Trade Name Freq PRN Reason Stop Dose Admin Acetaminophen 650 mg 02/15/21 03:23 Acetaminophen 325 Mg Tab PO Q4H PRN Pain (Mild 1-3)/fever Dextrose/Water 50 ml 08/06/21 03:27 50% Dextrose In Water 50 Ml Syringe IVPUSH Q15M PRN Hypoglycemia Glucagon 1 mg 02/15/21 03:27 Glucagon,Human Recombinant 1 Mg Vial IM Q15M PRN Hypoglycemia Heparin Sodium (Porcine) 5,000 units 02/15/21 09:00 Heparin Sodium 5,000 Units/Ml Vial SUBCUT Q12HR [facility] Sodium Chloride 1,000 mls @ 75 mls/hr 02/15/21 03:30 02/15/21 04:13 Normal Saline IV 75 mls/hr ASDIRECTED THANH Administration Insulin Human Lispro 0 unit 02/15/21 08:00 Insulin Lispro 100 Units/Ml 3 Ml Vial SUBCUT WITHMEALSANDBED [facility] Protocol Ondansetron HCl 4 mg 02/15/21 03:23 Ondansetron 4 Mg/2 Ml Sdv IVPUSH Q4H PRN Nausea/Vomiting Sodium Chloride 10 ml 02/15/21 03:23 Sodium Chloride 0.9% 10 Ml Syringe FLUSH ASDIRECTED PRN Keep Vein Open - Re-Assessments/Exams Free Text/Narrative Re-Assessment/Exam: 02/15/21 02:40 Attempt to ambulate. Unable to stand steady or independently at bedside. weak , knees wobbling, assistance 2 to tx to commode Departure - Departure Time of Disposition: 02:45 Disposition: Admitted As Inpatient 68 Condition: Fair Clinical Impression: General weakness, IDDM (insulin dependent diabetes mellitus), S/P right hip fracture Fall in home Qualifiers: Encounter type: initial encounter Qualified Code(s): W19.XXXA - Unspecified fall, initial encounter - Discharge Information *PRESCRIPTION DRUG MONITORING PROGRAM REVIEWED*: No *COPY OF PRESCRIPTION DRUG MONITORING REPORT IN PATIENT GENESIS: No - My Orders Last 24 Hours: My Active Orders 02/15/21 02:02 EKG 12 Lead [EKG Documentation Completion] [RC] URGENT - Assessment/Plan Last 24 Hours: My Active Orders 02/15/21 02:02 EKG 12 Lead [EKG Documentation Completion] [RC] URGENT
[2021-02-15] MEDS ORDERED: Ondansetron 4 MG/2 ML SDV IVPUSH PRN (03:23)
[2021-02-15] MEDS ORDERED: Acetaminophen 325 MG Tab PO PRN (03:23)
[2021-02-15] MEDS ORDERED: Sodium Chloride 0.9% 10 ML Syringe FLUSH PRN (03:23)
[2021-02-15] MEDS ORDERED: 50% Dextrose in Water 50 ML Syringe IVPUSH PRN ×2 (03:27→07:03)
[2021-02-15] MEDS ORDERED: Glucagon,Human Recombinant 1 MG Vial IM PRN ×2 (03:27→07:03)
[2021-02-15] MEDS ORDERED: Sodium Chloride 0.9% 1,000 ML IV SCH (03:30)
--- NOTE | 2021-02-15 03:32 | PCM.HP ---
H&P History of Present Illness - General Date of Service: 02/15/21 Admit Problem/Dx: Admission Diagnosis/Problem Admission Diagnosis/Problem Weakness - History of Present Illness Initial Comments - Free Text/Narative: The patient is an 89-year-old male who presents chief plaint of weakness. He states on the morning of hospitalization, February 15, 2021, he had awakened from sleep to go to the restroom and he felt his legs were weak and they gave out and he subsequently fell on his buttocks. He denies head trauma, loss consciousness or trauma of any other part of his body. Preceding/during the event he denies fever, rigors, nausea, vomiting, cough, wheeze, abdominal pain, diarrhea, chest pain, dyspnea, lightheadedness, dizziness, diplopia, blurry vision, dysphagia, dysphagia, paresthesia/anesthesia of any part of his body. He presents for further evaluation - Related Data Allergies/Adverse Reactions: Allergies Allergy/AdvReac Type Severity Reaction Status Date / Time quinapril Allergy Cough Verified 01/07/21 12:18 Home Medications: Home Meds Glimepiride 4 mg PO BIDMEALS 08/14/14 [History] Multivitamin [Multi-Vitamin Daily] 1 tab PO DAILY 08/14/14 [History] Pantoprazole Sodium 40 mg PO WITHDINNER 08/14/14 [History] Simvastatin 40 mg PO WITHDINNER 08/14/14 [History] Tamsulosin HCl 0.4 mg PO WITHDINNER 08/14/14 [History] allopurinoL [Allopurinol] 150 mg PO WITHDINNER 08/14/14 [History] SitaGLIPtin [Januvia] 50 mg PO DAILY 02/28/17 [History] Aspirin [Aspirin EC] 325 mg PO DAILY 01/07/21 [History] Gabapentin [Neurontin] 600 mg PO BID 01/07/21 [History] Insulin Glarg,Human.Rec.Analog [Lantus] 24 unit SUBCUT BEDTIME 01/07/21 [History] Levothyroxine 125 mcg PO ACBREAKFAST 01/07/21 [History] Semaglutide [Ozempic] 0.5 mg SUBCUT .ONCE WEEKLY 01/07/21 [History] carvediloL [Carvedilol] 6.25 mg PO BID 01/07/21 [History] Acetaminophen [Tylenol] 650 mg PO Q4H PRN tablet 02/07/21 [Rx] Ascorbic Acid [Vitamin C] 250 mg PO DAILY 30 Days #30 tablet 02/07/21 [Rx] Docusate Sodium/Sennosides [Senna Plus] 1 tab PO Q12HR 30 Days #60 tablet 02/07/21 [Rx] Ferrous Sulfate 325 mg PO BIDMEALS 30 Days #60 tablet 02/07/21 [Rx] Lidocaine 5% [Lidoderm 5%] 700 mg TOP DAILY PRN 10 Days #10 patch 02/07/21 [Rx] oxyCODONE 5 mg PO Q8HR PRN 30 Days #20 02/07/21 [Rx] Past Medical History HEENT History: Reports: Impaired Vision Cardiovascular History: Reports: CAD, High Cholesterol, Hypertension Gastrointestinal History: Reports: GERD Genitourinary History: Reports: BPH Musculoskeletal History: Reports: Back Pain, Chronic, Gout, Osteoarthritis Neurological History: Reports: TIA Other Neuro History: 1992- Endocrine/Metabolic History: Reports: Diabetes, Type II, Hypothyroidism - Past Surgical History HEENT Surgical History: Reports: Cataract Surgery Cardiovascular Surgical History: Reports: None GI Surgical History: Reports: None, Colonoscopy Male Surgical History: Reports: Kidney Stone Extraction Endocrine Surgical History: Reports: None Neurological Surgical History: Reports: None Musculoskeletal Surgical History: Reports: ORIF, Other (See Below) Other Musculoskeletal Surgeries/Procedures:: femure fracture 2020 with ORIF Dermatological Surgical History: Reports: None Social & Family History - Family History Family Medical History: No Pertinent Family History - Caffeine Use Caffeine Use: Reports: Coffee - Living Situation & Occupation Living situation: Reports: , with Significant Other Occupation: Retired H&P Review of Systems - Review of Systems: Review Of Systems: See Below General: Reports: No Symptoms HEENT: Reports: No Symptoms Pulmonary: Reports: No Symptoms Cardiovascular: Reports: No Symptoms Gastrointestinal: Reports: No Symptoms Genitourinary: Reports: No Symptoms Musculoskeletal: Reports: No Symptoms Skin: Reports: No Symptoms Psychiatric: Reports: No Symptoms Neurological: Reports: No Symptoms Hematologic/Lymphatic: Reports: No Symptoms Immunologic: Reports: No Symptoms Exam - Exam Exam: See Below - Vital Signs Vital Signs: Last Vital Signs Temp 98.3 F 02/15/21 03:13 Pulse 97 02/15/21 03:13 Resp 18 02/15/21 03:13 BP 127/63 02/15/21 03:13 Pulse Ox 97 02/15/21 03:13 - Exam General: Alert, Oriented, 4 HEENT: PERRLA, Hearing Intact, Mucosa Moist & [place], Nares Patent, Normal Nasal Septum, Posterior Pharynx Clear, Conjunctiva Clear, EOMI, EACs Clear, TMs Clear Neck: Supple, Trachea Midline, 2 Lungs: Clear to Auscultation Cardiovascular: Regular Rate, Regular Rhythm GI/Abdominal Exam: Normal Bowel Sounds, Soft, Non-Tender, No Organomegaly, No Distention, No Abnormal Bruit, No Mass, Pelvis Stable Back Exam: Normal Inspection, Full Range of Motion, NT Extremities: Normal Inspection, Normal Range of Motion, Non-Tender, No Pedal Edema, Normal Capillary Refill Peripheral Pulses: 2+: Carotid (L), Carotid (R), Brachial (L), Brachial (R), Radial (L), Radial (R), Femoral (L), Femoral (R), Popliteal (L), Popliteal (R), Posterior Tibial (L), Posterior Tibial (R), Dorsalis Pedis (L), Dorsalis Pedis (R) Skin: Warm, Dry, Intact Neurological: Cranial Nerves Intact, Reflexes Equal Bilateral Neuro Extensive - Mental Status: Alert, Oriented x3, Normal Mood/Affect, Normal Cognition Neuro Extensive - Motor, Sensory, Reflexes: CN II-XII Intact, Normal Gait, Normal Reflexes DTR: 2+: Bicep (L), Bicep (R), Tricep (L), Tricep (R), Patella (L), Patella (R), Achilles (L), Achilles (R) Psychiatric: Alert, Normal Affect, Normal Mood - Patient Data Lab Results Last 24 hrs: Laboratory Results - last 24 hr 02/15/21 02/15/21 02/15/21 Range/Units 00:50 00:50 00:50 WBC 9.4 (5.0-10.0) 10^3/uL RBC 3.83 L (4.6-6.2) 10^6/uL Hgb 11.4 L D (14.0-18.0) g/dL Hct 36.4 L (40.0-54.0) % MCV 95.0 (80-100) fL MCH 29.8 (27.0-34.0) pg MCHC 31.3 L (33.0-35.0) g/dL Plt Count 260 (150-450) 10^3/uL Neut % (Auto) 73.6 (42.2-75.2) % Lymph % (Auto) 15.0 L (20.5-50.1) % [place] % (Auto) 10.0 H (2-8) % Eos % (Auto) 1.0 (1.0-3.0) % Baso % (Auto) 0.4 (0.0-1.0) % PT 10.3 (9.0-12.0) SEC INR 1.0 (0.9-1.2) Sodium 137 (136-145) mmol/L Potassium 4.7 (3.5-5.1) mmol/L Chloride 102 (98-107) mmol/L Carbon Dioxide 27 (21-32) mmol/L Anion Gap 12.7 (7-13) mEq/L BUN 31 H (7-18) mg/dL Creatinine 1.94 H (0.70-1.30) mg/dL Est Cr Clr Drug Dosing TNP Estimated GFR (MDRD) 33 BUN/Creatinine Ratio 16.0 (No establ ref range) Glucose 208 H (70-99) mg/dL Calcium 8.4 L (8.5-10.1) mg/dL Magnesium 1.9 (1.8-2.4) mg/dL Total Bilirubin 0.7 (0.2-1.0) mg/dL AST 17 (15-37) U/L ALT 23 (16-63) U/L Alkaline Phosphatase 178 H (46-116) U/L Total Protein 6.9 (6.4-8.2) g/dL Albumin 2.8 L (3.4-5.0) g/dL Globulin 4.1 Albumin/Globulin Ratio 0.68 SARS CoV-2 RNA Rapid ALLYSSA (NEGATIVE) 02/15/21 Range/Units 02:07 WBC (5.0-10.0) 10^3/uL RBC (4.6-6.2) 10^6/uL Hgb (14.0-18.0) g/dL Hct (40.0-54.0) % MCV (80-100) fL MCH (27.0-34.0) pg MCHC (33.0-35.0) g/dL Plt Count (150-450) 10^3/uL Neut % (Auto) (42.2-75.2) % Lymph % (Auto) (20.5-50.1) % [place] % (Auto) (2-8) % Eos % (Auto) (1.0-3.0) % Baso % (Auto) (0.0-1.0) % PT (9.0-12.0) SEC INR (0.9-1.2) Sodium (136-145) mmol/L Potassium (3.5-5.1) mmol/L Chloride (98-107) mmol/L Carbon Dioxide (21-32) mmol/L Anion Gap (7-13) mEq/L BUN (7-18) mg/dL Creatinine (0.70-1.30) mg/dL Est Cr Clr Drug Dosing Estimated GFR (MDRD) BUN/Creatinine Ratio (No establ ref range) Glucose (70-99) mg/dL Calcium (8.5-10.1) mg/dL Magnesium (1.8-2.4) mg/dL Total Bilirubin (0.2-1.0) mg/dL AST (15-37) U/L ALT (16-63) U/L Alkaline Phosphatase (46-116) U/L Total Protein (6.4-8.2) g/dL Albumin (3.4-5.0) g/dL Globulin Albumin/Globulin Ratio SARS CoV-2 RNA Rapid ALLYSSA Negative (NEGATIVE) Result Diagrams: 02/15/21 00:50 02/15/21 00:50 Problem List Initiated/Reviewed/Updated: Yes Orders Last 24hrs: Active Orders 24 hr Category Date Time Status Admission Diagnosis [ADT] Stat ADT 02/15/21 02:44 Ordered Admission Status [Patient Status] [ADT] Stat ADT 02/15/21 02:44 Active Patient Status [ADT] Routine ADT 02/15/21 03:23 Ordered Blood Glucose Check, Bedside [] WITHMEALSANDBED Care 02/15/21 03:23 Ordered EKG 12 Lead [EKG Documentation Completion] [RC] URGENT Care 02/15/21 02:02 Active Peripheral IV Care [RC] . DIRECTED Care 02/15/21 03:25 Ordered Up With Assistance [RC] ASDIRECTED Care 02/15/21 03:23 Ordered Vital Signs [RC] Q4H Care 02/15/21 03:23 Ordered Consult to Case Management/Link Trainer Maintenance Man [CONS] Cons 02/15/21 03:23 Ordered Routine OT Evaluation and Treatment [CONS] Routine Cons 02/15/21 03:23 Ordered PT Evaluation and Treatment [CONS] Routine Cons 02/15/21 03:23 Ordered Consistent Carbohydrate Diet [DIET] Diet 02/15/21 Breakfast Ordered URINALYSIS W/MICROSCOPIC [UA W/MICROSCOPIC] [URIN] Lab 02/15/21 03:26 Ordered Routine Acetaminophen [TylenoL] Med 02/15/21 03:23 Ordered 650 mg PO Q4H PRN Dextrose 50% in Water Med 02/15/21 03:27 Ordered 50 ml IVPUSH Q15M PRN Glucagon,Human Recombinant [GlucaGen] Med 02/15/21 03:27 Ordered 1 mg IM Q15M PRN Heparin Sodium Med 02/15/21 09:00 Ordered 5,000 units SUBCUT Q12HR Insulin Lispro [HumaLOG] Med 02/15/21 08:00 Ordered See Protocol SUBCUT WITHMEALSANDBED Ondansetron [Zofran] Med 02/15/21 03:23 Ordered 4 mg IVPUSH Q4H PRN Sodium Chloride 0.9% [Normal Saline] 1,000 ml Med 02/15/21 03:30 Ordered IV ASDIRECTED Sodium Chloride 0.9% [Saline Flush] Med 02/15/21 03:23 Ordered 10 ml FLUSH ASDIRECTED PRN Peripheral IV Insertion Adult [OM.PC] Routine Oth 02/15/21 03:23 Ordered Resuscitation Status Routine Resus Stat 02/15/21 03:23 Ordered Medication Orders Acetaminophen (Acetaminophen 325 Mg Tab) 650 mg PO Q4H PRN PRN Reason: Pain (Mild 1-3)/fever Heparin Sodium (Porcine) (Heparin Sodium 5,000 Units/Ml Vial) 5,000 units SUBCUT Q12HR [facility] Sodium Chloride (Normal Saline) 1,000 mls @ 75 mls/hr IV ASDIRECTED THAN[facility] Ondansetron HCl (Ondansetron 4 Mg/2 Ml Sdv) 4 mg IVPUSH Q4H PRN PRN Reason: Nausea/Vomiting Sodium Chloride (Sodium Chloride 0.9% 10 Ml Syringe) 10 ml FLUSH ASDIRECTED PRN PRN Reason: Keep Vein Open Assessment/Plan Comment:: Surgical History: Right hip surgery, bilateral cataract surgery, tonsillectomy, adenoidectomy Family History: Cancer, diabetes, hypertension, hyperlipidemia Social History: Tobacco: Former smoker Alcohol: Occasional Caffeine: Coffee Drugs: Never Allergies: Patient has documented allergy to quinapril however he is uncertain of this and he cannot recall any allergic reaction Code Status: DNR, DNI Assessment / Plan: Weakness. IV normal saline 75 mils per hour. Check urinalysis with microscopy. Physical therapy consult. Occupational Therapy consult. Status post recent right hip surgery. Outpatient follow-up with orthopedic surgery upon discharge Gout Seasonal allergies Hypothyroidism Elevated alkaline phosphatase. We will monitor this intermittently Neuropathy History of TIA Osteoarthritis Erectile dysfunction BPH Iron deficiency anemia. Will monitor hemoglobin level intermittently COPD Coronary artery disease Diabetes. Will check Annmarie glucose before every meal and at bedtime and provide sulci scale GERD Hyperlipidemia Hypertension Obesity. Patient counseled regarding lifestyle modification Chronic kidney disease, baseline creatinine ranges from 2-3.6. Will monitor renal function intermittently. IV normal saline 75 mils per hour Chronic pain History nephrolithiasis Degenerative disc disease Diverticulosis History of elevated PSA. Outpatient follow-up with urology DVT prophylaxis. Heparin 5000 units subcutaneously every 12 hours Disposition: Patient may be a candidate for discharge within 48 hours however this may vary according to physical therapy and Occupational Therapy's findings recommendations and the potential need for skilled nursing placement. At the time of admission, the patient's home medications were pending input to the EMR/DHR system. Once their input, they will be reviewed and reconciled END OF DOCTOR EMAMIS HISTORY AND PHYSICAL / CONSULTATION NOTE
[2021-02-15] MEDS ORDERED: oxyCODONE 5 MG Tab PO PRN (07:03)
--- NOTE | 2021-02-15 07:13 | PCM.PN ---
- General Info Date of Service: 02/15/21 Subjective Update: The patient endorses no complaints at this time. He denies fever, rigors, nausea, vomiting, cough, wheeze, abdominal pain, chest pain, dyspnea, lightheadedness, dizziness, or any other constitutional complaint. I explained to the patient his current medical condition and plan of care and I have answered all of his questions - Review of Systems General: Reports: No Symptoms HEENT: Reports: No Symptoms Pulmonary: Reports: No Symptoms Cardiovascular: Reports: No Symptoms Gastrointestinal: Reports: No Symptoms Genitourinary: Reports: No Symptoms Musculoskeletal: Reports: No Symptoms Skin: Reports: No Symptoms Neurological: Reports: No Symptoms Psychiatric: Reports: No Symptoms - Patient Data Vitals - Most Recent: Last Vital Signs Temp 98.3 F 02/15/21 03:13 Pulse 97 02/15/21 03:13 Resp 18 02/15/21 03:13 BP 127/63 02/15/21 03:13 Pulse Ox 97 02/15/21 03:13 Weight - Most Recent: 209 lb 4.8 oz I&O - Last 24 Hours: Intake & Output 02/14/21 02/15/21 02/15/21 22:59 06:59 14:59 Output Total 375 Balance -375 Lab Results Last 24 Hours: Laboratory Results - last 24 hr 02/15/21 02/15/21 02/15/21 Range/Units 00:50 00:50 00:50 WBC 9.4 (5.0-10.0) 10^3/uL RBC 3.83 L (4.6-6.2) 10^6/uL Hgb 11.4 L D (14.0-18.0) g/dL Hct 36.4 L (40.0-54.0) % MCV 95.0 (80-100) fL MCH 29.8 (27.0-34.0) pg MCHC 31.3 L (33.0-35.0) g/dL Plt Count 260 (150-450) 10^3/uL Neut % (Auto) 73.6 (42.2-75.2) % Lymph % (Auto) 15.0 L (20.5-50.1) % [place] % (Auto) 10.0 H (2-8) % Eos % (Auto) 1.0 (1.0-3.0) % Baso % (Auto) 0.4 (0.0-1.0) % PT 10.3 (9.0-12.0) SEC INR 1.0 (0.9-1.2) Sodium 137 (136-145) mmol/L Potassium 4.7 (3.5-5.1) mmol/L Chloride 102 (98-107) mmol/L Carbon Dioxide 27 (21-32) mmol/L Anion Gap 12.7 (7-13) mEq/L BUN 31 H (7-18) mg/dL Creatinine 1.94 H (0.70-1.30) mg/dL Est Cr Clr Drug Dosing TNP Estimated GFR (MDRD) 33 BUN/Creatinine Ratio 16.0 (No establ ref range) Glucose 208 H (70-99) mg/dL Calcium 8.4 L (8.5-10.1) mg/dL Magnesium 1.9 (1.8-2.4) mg/dL Total Bilirubin 0.7 (0.2-1.0) mg/dL AST 17 (15-37) U/L ALT 23 (16-63) U/L Alkaline Phosphatase 178 H (46-116) U/L Total Protein 6.9 (6.4-8.2) g/dL Albumin 2.8 L (3.4-5.0) g/dL Globulin 4.1 Albumin/Globulin Ratio 0.68 Urine Color (YELLOW) Urine Appearance (CLEAR) Urine pH (5.0-9.0) Ur Specific [place] (1.005-1.030) Urine Protein (NEGATIVE) Urine Glucose (UA) (NEGATIVE) Urine Ketones (NEGATIVE) Urine Occult Blood (NEGATIVE) Urine Nitrite (NEGATIVE) Urine Bilirubin (NEGATIVE) Urine Urobilinogen (0.2-1.0) mg/dL Ur Leukocyte Esterase (NEGATIVE) Urine RBC (0-5) /HPF Urine WBC (0-5/HPF) /HPF Ur Epithelial Cells (NOT SEEN) /HPF Urine Bacteria (0-FEW/HPF) /HPF SARS CoV-2 RNA Rapid ALLYSSA (NEGATIVE) 02/15/21 02/15/21 Range/Units 02:07 03:42 WBC (5.0-10.0) 10^3/uL RBC (4.6-6.2) 10^6/uL Hgb (14.0-18.0) g/dL Hct (40.0-54.0) % MCV (80-100) fL MCH (27.0-34.0) pg MCHC (33.0-35.0) g/dL Plt Count (150-450) 10^3/uL Neut % (Auto) (42.2-75.2) % Lymph % (Auto) (20.5-50.1) % [place] % (Auto) (2-8) % Eos % (Auto) (1.0-3.0) % Baso % (Auto) (0.0-1.0) % PT (9.0-12.0) SEC INR (0.9-1.2) Sodium (136-145) mmol/L Potassium (3.5-5.1) mmol/L Chloride (98-107) mmol/L Carbon Dioxide (21-32) mmol/L Anion Gap (7-13) mEq/L BUN (7-18) mg/dL Creatinine (0.70-1.30) mg/dL Est Cr Clr Drug Dosing Estimated GFR (MDRD) BUN/Creatinine Ratio (No establ ref range) Glucose (70-99) mg/dL Calcium (8.5-10.1) mg/dL Magnesium (1.8-2.4) mg/dL Total Bilirubin (0.2-1.0) mg/dL AST (15-37) U/L ALT (16-63) U/L Alkaline Phosphatase (46-116) U/L Total Protein (6.4-8.2) g/dL Albumin (3.4-5.0) g/dL Globulin Albumin/Globulin Ratio Urine Color Yellow (YELLOW) Urine Appearance Slightly cloudy (CLEAR) Urine pH 5.5 (5.0-9.0) Ur Specific [place] 1.020 (1.005-1.030) Urine Protein 30 H (NEGATIVE) Urine Glucose (UA) 100 H (NEGATIVE) Urine Ketones Negative (NEGATIVE) Urine Occult Blood Trace-intact H (NEGATIVE) Urine Nitrite Negative (NEGATIVE) Urine Bilirubin Negative (NEGATIVE) Urine Urobilinogen 0.2 (0.2-1.0) mg/dL Ur Leukocyte Esterase Negative (NEGATIVE) Urine RBC 0-5 (0-5) /HPF Urine WBC 0-5 (0-5/HPF) /HPF Ur Epithelial Cells Occasional (NOT SEEN) /HPF Urine Bacteria Occasional (0-FEW/HPF) /HPF SARS CoV-2 RNA Rapid ALLYSSA Negative (NEGATIVE) Med Orders - Current: Current Medications Acetaminophen (Acetaminophen 325 Mg Tab) 650 mg PO Q4H PRN PRN Reason: Pain (Mild 1-3)/fever Allopurinol (Allopurinol 300 Mg Tab) 150 mg PO WITHDINNER [facility] Ascorbic Acid (Ascorbic Acid 500 Mg Tab) 250 mg PO DAILY [facility] Aspirin (Aspirin 325 Mg Tab.Ec) 325 mg PO DAILY [facility] Carvedilol (Carvedilol 6.25 Mg Tab) 6.25 mg PO BID [facility] Dextrose/Water (50% Dextrose In Water 50 Ml Syringe) 50 ml IVPUSH Q15M PRN PRN Reason: Hypoglycemia Ferrous Sulfate (Ferrous Sulfate 325 Mg Tab) 325 mg PO BIDMEALS [facility] Gabapentin (Gabapentin 300 Mg Cap) 600 mg PO BID [facility] Glucagon (Glucagon,Human Recombinant 1 Mg Vial) 1 mg IM Q15M PRN PRN Reason: Hypoglycemia Glucagon (Glucagon,Human Recombinant 1 Mg Vial) 1 mg IM Q15M PRN PRN Reason: Hypoglycemia Heparin Sodium (Porcine) (Heparin Sodium 5,000 Units/Ml Vial) 5,000 units SUBCUT Q12HR [facility] Insulin Glargine (Insulin Glarg,Human.Rec.Analog 100 Unit/Ml) 24 unit SUBCUT BEDTIME [facility] Insulin Human Lispro (Insulin Lispro 100 Units/Ml 3 Ml Vial) 0 unit SUBCUT WITHMEALSANDBED [facility]; Protocol Levothyroxine Sodium (Levothyroxine 125 Mcg Tab) 125 mcg PO ACBREAKFAST [facility] Lidocaine (Lidocaine 5% 700 Mg Patch) 700 mg TOP DAILY PRN PRN Reason: Pain Non-Formulary Medication (Glimepiride) 4 mg PO BIDMEALS [facility] Non-Formulary Medication (Simvastatin [Simvastatin]) [facility] Non-Formulary Medication (Sitagliptin) 100 mg PO DAILY [facility] Ondansetron HCl (Ondansetron 4 Mg/2 Ml Sdv) 4 mg IVPUSH Q4H PRN PRN Reason: Nausea/Vomiting Oxycodone HCl (Oxycodone 5 Mg Tab) 5 mg PO Q8HR PRN PRN Reason: Pain (severe 7-10) Pantoprazole Sodium (Pantoprazole 40 Mg Tab.Cr) [facility] [place] Senna/Docusate Sodium (Docusate Sodium/Sennosides 50-8.6 Mg Tab) 1 tab PO BID [facility] Sodium Chloride (Sodium Chloride 0.9% 10 Ml Syringe) 10 ml FLUSH ASDIRECTED PRN PRN Reason: Keep Vein Open Tamsulosin HCl (Tamsulosin 0.4 Mg Cap.Er) 0.4 [facility] Discontinued Medications Dextrose/Water (50% Dextrose In Water 50 Ml Syringe) 50 ml IVPUSH Q15M PRN PRN Reason: Hypoglycemia Sodium Chloride (Normal Saline) 1,000 mls @ 75 mls/hr IV ASDIRECTED THANH Last Admin: 02/15/21 04:13 Dose: 75 mls/hr Documented by: - Exam General: Alert, Oriented HEENT: Pupils Equal, Pupils Reactive, EOMI, Mucous Membr. Moist/[place]ck: Supple Lungs: Clear to Auscultation, Normal Respiratory Effort Cardiovascular: Regular Rate, No Murmurs, Irregular Rhythm GI/Abdominal Exam: Normal Bowel Sounds, Soft, Non-Tender, No Organomegaly, No Distention, No Abnormal Bruit, No Mass, Pelvis Stable Back Exam: Normal Inspection, Full Range of Motion Extremities: Normal Inspection, Normal Range of Motion, Non-Tender, No Pedal Edema, Normal Capillary Refill Peripheral Pulses: 2+: Carotid (L), Carotid (R), Brachial (L), Brachial (R), Radial (L), Radial (R), Femoral (L), Femoral (R), Popliteal (L), Popliteal (R), Posterior Tibial (L), Posterior Tibial (R), Dorsalis Pedis (L), Dorsalis Pedis (R) Skin: Warm, Dry, Intact Wound/Incisions: Healing Well Neurological: No New Focal Deficit Psy/Mental Status: Alert, Normal Affect, Normal Mood - Patient Data Lab Results Last 24 hrs: Laboratory Results - last 24 hr 02/15/21 02/15/21 02/15/21 Range/Units 00:50 00:50 00:50 WBC 9.4 (5.0-10.0) 10^3/uL RBC 3.83 L (4.6-6.2) 10^6/uL Hgb 11.4 L D (14.0-18.0) g/dL Hct 36.4 L (40.0-54.0) % MCV 95.0 (80-100) fL MCH 29.8 (27.0-34.0) pg MCHC 31.3 L (33.0-35.0) g/dL Plt Count 260 (150-450) 10^3/uL Neut % (Auto) 73.6 (42.2-75.2) % Lymph % (Auto) 15.0 L (20.5-50.1) % [place] % (Auto) 10.0 H (2-8) % Eos % (Auto) 1.0 (1.0-3.0) % Baso % (Auto) 0.4 (0.0-1.0) % PT 10.3 (9.0-12.0) SEC INR 1.0 (0.9-1.2) Sodium 137 (136-145) mmol/L Potassium 4.7 (3.5-5.1) mmol/L Chloride 102 (98-107) mmol/L Carbon Dioxide 27 (21-32) mmol/L Anion Gap 12.7 (7-13) mEq/L BUN 31 H (7-18) mg/dL Creatinine 1.94 H (0.70-1.30) mg/dL Est Cr Clr Drug Dosing TNP Estimated GFR (MDRD) 33 BUN/Creatinine Ratio 16.0 (No establ ref range) Glucose 208 H (70-99) mg/dL Calcium 8.4 L (8.5-10.1) mg/dL Magnesium 1.9 (1.8-2.4) mg/dL Total Bilirubin 0.7 (0.2-1.0) mg/dL AST 17 (15-37) U/L ALT 23 (16-63) U/L Alkaline Phosphatase 178 H (46-116) U/L Total Protein 6.9 (6.4-8.2) g/dL Albumin 2.8 L (3.4-5.0) g/dL Globulin 4.1 Albumin/Globulin Ratio 0.68 Urine Color (YELLOW) Urine Appearance (CLEAR) Urine pH (5.0-9.0) Ur Specific [place] (1.005-1.030) Urine Protein (NEGATIVE) Urine Glucose (UA) (NEGATIVE) Urine Ketones (NEGATIVE) Urine Occult Blood (NEGATIVE) Urine Nitrite (NEGATIVE) Urine Bilirubin (NEGATIVE) Urine Urobilinogen (0.2-1.0) mg/dL Ur Leukocyte Esterase (NEGATIVE) Urine RBC (0-5) /HPF Urine WBC (0-5/HPF) /HPF Ur Epithelial Cells (NOT SEEN) /HPF Urine Bacteria (0-FEW/HPF) /HPF SARS CoV-2 RNA Rapid ALLYSSA (NEGATIVE) 02/15/21 02/15/21 Range/Units 02:07 03:42 WBC (5.0-10.0) 10^3/uL RBC (4.6-6.2) 10^6/uL Hgb (14.0-18.0) g/dL Hct (40.0-54.0) % MCV (80-100) fL MCH (27.0-34.0) pg MCHC (33.0-35.0) g/dL Plt Count (150-450) 10^3/uL Neut % (Auto) (42.2-75.2) % Lymph % (Auto) (20.5-50.1) % [place] % (Auto) (2-8) % Eos % (Auto) (1.0-3.0) % Baso % (Auto) (0.0-1.0) % PT (9.0-12.0) SEC INR (0.9-1.2) Sodium (136-145) mmol/L Potassium (3.5-5.1) mmol/L Chloride (98-107) mmol/L Carbon Dioxide (21-32) mmol/L Anion Gap (7-13) mEq/L BUN (7-18) mg/dL Creatinine (0.70-1.30) mg/dL Est Cr Clr Drug Dosing Estimated GFR (MDRD) BUN/Creatinine Ratio (No establ ref range) Glucose (70-99) mg/dL Calcium (8.5-10.1) mg/dL Magnesium (1.8-2.4) mg/dL Total Bilirubin (0.2-1.0) mg/dL AST (15-37) U/L ALT (16-63) U/L Alkaline Phosphatase (46-116) U/L Total Protein (6.4-8.2) g/dL Albumin (3.4-5.0) g/dL Globulin Albumin/Globulin Ratio Urine Color Yellow (YELLOW) Urine Appearance Slightly cloudy (CLEAR) Urine pH 5.5 (5.0-9.0) Ur Specific [place] 1.020 (1.005-1.030) Urine Protein 30 H (NEGATIVE) Urine Glucose (UA) 100 H (NEGATIVE) Urine Ketones Negative (NEGATIVE) Urine Occult Blood Trace-intact H (NEGATIVE) Urine Nitrite Negative (NEGATIVE) Urine Bilirubin Negative (NEGATIVE) Urine Urobilinogen 0.2 (0.2-1.0) mg/dL Ur Leukocyte Esterase Negative (NEGATIVE) Urine RBC 0-5 (0-5) /HPF Urine WBC 0-5 (0-5/HPF) /HPF Ur Epithelial Cells Occasional (NOT SEEN) /HPF Urine Bacteria Occasional (0-FEW/HPF) /HPF SARS CoV-2 RNA Rapid ALLYSSA Negative (NEGATIVE) Result Diagrams: 02/15/21 00:50 02/15/21 00:50 Sepsis Event Note - Evaluation Sepsis Screening Result: No Definite Risk - Focused Exam Vital Signs: Vital Signs Temp Pulse Resp BP BP Pulse Ox 02/15/21 03:13 98.3 F 97 18 119/56 L 127/63 97 - Problem List Review Problem List Initiated/Reviewed/Updated: Yes - My Orders Last 24 Hours: My Active Orders 02/15/21 03:23 Patient Status [ADT] Routine Blood Glucose Check, Bedside [RC] WITHMEALSANDBED Up With Assistance [RC] ASDIRECTED Vital Signs [RC] Q4H Consult to Case Management/Production Trainer [CONS] Routine OT Evaluation and Treatment [CONS] Routine PT Evaluation and Treatment [CONS] Routine Acetaminophen [TylenoL] 650 mg PO Q4H PRN Ondansetron [Zofran] 4 mg IVPUSH Q4H PRN Sodium Chloride 0.9% [Saline Flush] 10 ml FLUSH ASDIRECTED PRN Peripheral IV Insertion Adult [OM.PC] Routine Resuscitation Status Routine 02/15/21 03:25 Peripheral IV Care [RC] 02/15/21 03:27 Dextrose 50% in Water 50 ml IVPUSH Q15M PRN Glucagon,Human Recombinant [GlucaGen] 1 mg IM Q15M PRN 02/15/21 07:03 Glucagon,Human Recombinant [GlucaGen] 1 mg IM Q15M PRN Lidocaine 5% [Lidoderm 5%] 700 mg TOP DAILY PRN oxyCODONE 5 mg PO Q8HR PRN 02/15/21 Breakfast Consistent Carbohydrate Diet [DIET] 02/15/21 08:00 Ferrous Sulfate 325 mg PO BIDMEALS Glimepiride 4 mg PO BIDMEALS Insulin Lispro [HumaLOG] See Protocol SUBCUT WITHMEALSANDBED 02/15/21 09:00 Ascorbic Acid [Vitamin C] 250 mg PO DAILY Aspirin [Ecotrin] 325 mg PO DAILY Docusate Sodium/Sennosides [Senna Plus] 1 tab PO BID Gabapentin [Neurontin] 600 mg PO BID Heparin Sodium 5,000 units SUBCUT Q12HR SitaGLIPtin 100 mg PO DAILY carvediloL [Coreg] 6.25 mg PO BID 02/15/21 18:00 Pantoprazole [ProTONIX] 40 mg PO WITHDINNER Simvastatin [Simvastatin] 40 mg PO WITHDINNER Tamsulosin [Flomax] 0.4 mg PO WITHDINNER allopurinoL [Zyloprim] 150 mg PO WITHDINNER 02/15/21 21:00 Insulin Glarg,Human.Rec.Analog [LantUS] 24 unit SUBCUT BEDTIME 02/16/21 06:00 Levothyroxine 125 mcg PO ACBREAKFAST - Plan Plan:: Surgical History: Right hip surgery, bilateral cataract surgery, tonsillectomy, adenoidectomy Family History: Cancer, diabetes, hypertension, hyperlipidemia Social History: Tobacco: Former smoker Alcohol: Occasional Caffeine: Coffee Drugs: Never Allergies: Patient has documented allergy to quinapril however he is uncertain of this and he cannot recall any allergic reaction Code Status: DNR, DNI Assessment / Plan: Weakness. Physical therapy consult. Occupational Therapy consult. Status post recent right hip surgery. Outpatient follow-up with orthopedic surgery upon discharge Gout. Allopurinol 150 mg p.o. daily Seasonal allergies Hypothyroidism. Synthroid 125 mcg p.o. daily Elevated alkaline phosphatase. We will monitor this intermittently Neuropathy. Gabapentin 600 mg p.o. twice daily History of TIA. Aspirin 325 mg p.o. daily Po Zocor 40 mg p.o. nightly Osteoarthritis Erectile dysfunction BPH. Flomax 0.4 mg p.o. daily Iron deficiency anemia. Will monitor hemoglobin level intermittently. Vitamin C 250 mg p.o. daily plus ferrous sulfate 305 mg p.o. twice daily COPD Coronary artery disease. Aspirin 325 mg p.o. daily plus Coreg 6.25 mg p.o. twice daily plus Zocor 40 mg p.o. nightly Diabetes. Will check [place]marie glucose before every meal and at bedtime and provide sulci scale plus glimepiride 4 mg p.o. twice daily plus Lantus 24 units subcutaneously nightly plus Januvia 100 mg p.o. daily GERD. Protonix 40 mg p.o. nightly Hyperlipidemia. Zocor 40 mg p.o. nightly Hypertension. Coreg 6.25 mg p.o. twice daily Obesity. Patient counseled regarding lifestyle modification Chronic kidney disease, baseline creatinine ranges from 2-3.6. Will monitor renal function intermittently. Chronic pain History nephrolithiasis Degenerative disc disease Diverticulosis History of elevated PSA. Outpatient follow-up with urology Constipation. Senna plus: 1 tab p.o. twice daily DVT prophylaxis. Heparin 5000 units subcutaneously every 12 hours Disposition: Patient may be a candidate for discharge within 24 hours however this may vary according to physical therapy and Occupational Therapy's findings recommendations and the potential need for residential placement. END OF DOCTOR EMAMIS HISTORY AND PHYSICAL / CONSULTATION NOTE
[2021-02-15] MEDS: Levothyroxine 125 MCG Tab PO SCH (08:02)
[2021-02-15] MEDS: Ascorbic Acid 500 MG Tab PO SCH (08:03)
[2021-02-15] MEDS: Ferrous Sulfate 325 MG Tab PO SCH ×2 (08:03→17:05)
[2021-02-15] MEDS: Aspirin 325 MG Tab.EC PO SCH (08:03)
[2021-02-15] MEDS: Gabapentin 300 MG Cap PO SCH ×2 (08:04→21:51)
[2021-02-15] MEDS: Carvedilol 6.25 MG Tab PO SCH ×2 (08:04→21:51)
[2021-02-15] MEDS: Heparin Sodium 5,000 Units/ML Vial SUBCUT SCH ×2 (08:05→21:55)
[2021-02-15] MEDS: Glimepiride 2 MG Tab PO SCH ×2 (08:05→17:05)
[2021-02-15] MEDS: Insulin Lispro 100 Units/ML 3 ML Vial SUBCUT SCH ×4 (08:11→22:12)
[2021-02-15] MEDS ORDERED: Lidocaine 5% 700 MG Patch TOP PRN (09:00)
[2021-02-15] MEDS ORDERED: Pantoprazole 40 MG Tab.CR PO SCH (18:00)
[2021-02-15] MEDS ORDERED: Allopurinol 300 MG Tab PO SCH (18:00)
[2021-02-15] MEDS ORDERED: Tamsulosin 0.4 MG Cap.ER PO SCH (18:00)
[2021-02-15] MEDS ORDERED: Simvastatin 40 MG Tab PO SCH (18:00)
[2021-02-15] MEDS: JANUVIA 100 MG PO SCH (18:22)
[2021-02-15] MEDS ORDERED: Insulin Glarg,Human.Rec.Analog 100 Unit/ML SUBCUT SCH (21:00)
[2021-02-16] MEDS: Levothyroxine 125 MCG Tab PO SCH (05:54)
--- NOTE | 2021-02-16 07:19 | PCM.SN.2 ---
- Free Text/Narrative Note: START OF DOCTOR EMAMIS DISCHARGE SUMMARY Date of Admission: February 15, 2021 Date of Discharge: 7:16 AM on February 16, 2021 Primary Diagnosis: Weakness with subsequent fall Secondary Diagnosis: Status post recent right hip surgery Gout Seasonal allergies Hypothyroidism Elevated alkaline phosphatase Neuropathy History of TIA Osteoarthritis Erectile dysfunction BPH Iron deficiency anemia COPD Coronary artery disease Diabetes GERD Hyperlipidemia Hypertension Obesity Chronic kidney disease, baseline creatinine ranges from 2-3.6 Chronic pain History of nephrolithiasis Degenerative disc disease Diverticulosis History of elevated PSA Constipation Consultations: None Condition on Discharge: Fair Disposition: The patient will be advised to follow-up with orthopedic surgery as directed for his diagnosis of status post recent right hip surgery The patient is advised to follow-up with urology as directed for his diagnosis of elevated PSA Upon discharge, the patient is to have home health resumed Discharge Medications: Multivitamin 1 tab p.o. daily Tylenol 650 mg p.o. every 4 hours as needed mild pain Flomax 0.4 mg p.o. daily Januvia 100 mg p.o. daily Zocor 40 mg p.o. nightly Protonix 40 mg p.o. nightly Oxycodone 5 mg p.o. every 8 hours as needed moderate to severe pain Lidocaine 5% patch to be applied to affected area for 12 hours daily as needed pain Synthroid 125 mcg p.o. daily Lantus 24 units subcutaneously nightly Glimepiride 4 mg p.o. twice daily Gabapentin 600 mg p.o. twice daily Ferrous sulfate 3 and 25 mg p.o. twice daily Senna plus: 1 tab p.o. twice daily Coreg 6.25 mg p.o. twice daily Aspirin 325 mg p.o. daily Vitamin C 250 mg p.o. daily Allopurinol 150 mg p.o. nightly END OF DOCTOR EMAMIS DISCHARGE SUMMARY
[2021-02-16] MEDS: Glimepiride 2 MG Tab PO SCH (08:18)
[2021-02-16] MEDS: Aspirin 325 MG Tab.EC PO SCH (08:18)
[2021-02-16] MEDS: Ascorbic Acid 500 MG Tab PO SCH (08:19)
[2021-02-16] MEDS: Carvedilol 6.25 MG Tab PO SCH (08:19)
[2021-02-16] MEDS: Gabapentin 300 MG Cap PO SCH (08:19)
[2021-02-16] MEDS: Ferrous Sulfate 325 MG Tab PO SCH (08:19)
[2021-02-16] MEDS: Insulin Lispro 100 Units/ML 3 ML Vial SUBCUT SCH (08:21)
[2021-02-16] MEDS: JANUVIA 100 MG PO SCH (08:22)
[2021-02-16] MEDS: Heparin Sodium 5,000 Units/ML Vial SUBCUT SCH (08:22)
[2021-02-16 08:23] VITALS: BP 105/62; PULSE 86
== END 2021-02-16 09:30 | disposition home or self-care (01) | DRG 948 ==
LOC: DL.ED 23:58 → DL.MS 02-15 02:44
PROVIDERS: ADMIT Internal Medicine; ATTEND Internal Medicine
DX: R53.1 Weakness (principal); S09.8XXA Other specified injuries of head, initial encounter; W18.39XA Other fall on same level, initial encounter; Y92.002 Bathroom of unspecified non-institutional (private) residence as the place of occurrence of the external cause; Z66 Do not resuscitate; E11.9 Type 2 diabetes mellitus without complications; H54.7 Unspecified visual loss; I25.10 Atherosclerotic heart disease of native coronary artery without angina pectoris; M54.9 Dorsalgia, unspecified; E78.00 Pure hypercholesterolemia, unspecified; I10 Essential (primary) hypertension; K21.9 Gastro-esophageal reflux disease without esophagitis; K57.90 Diverticulosis of intestine, part unspecified, without perforation or abscess without bleeding; R74.8 Abnormal levels of other serum enzymes; N52.9 Male erectile dysfunction, unspecified; D50.9 Iron deficiency anemia, unspecified; J44.9 Chronic obstructive pulmonary disease, unspecified; E11.42 Type 2 diabetes mellitus with diabetic polyneuropathy; E78.5 Hyperlipidemia, unspecified; E66.9 Obesity, unspecified; I12.9 Hypertensive chronic kidney disease with stage 1 through stage 4 chronic kidney disease, or unspecified chronic kidney disease; N18.9 Chronic kidney disease, unspecified; Z87.442 Personal history of urinary calculi; N40.0 Benign prostatic hyperplasia without lower urinary tract symptoms; G89.29 Other chronic pain; M10.9 Gout, unspecified; M19.90 Unspecified osteoarthritis, unspecified site; Z98.49 Cataract extraction status, unspecified eye; Z87.891 Personal history of nicotine dependence; Z98.890 Other specified postprocedural states; Z98.41 Cataract extraction status, right eye; Z98.42 Cataract extraction status, left eye; Z90.89 Acquired absence of other organs; E03.9 Hypothyroidism, unspecified; Z68.27 Body mass index [BMI] 27.0-27.9, adult; Z86.73 Personal history of transient ischemic attack (TIA), and cerebral infarction without residual deficits; Z87.81 Personal history of (healed) traumatic fracture; Z88.8 Allergy status to other drugs, medicaments and biological substances; Z79.82 Long term (current) use of aspirin; Z79.890 Hormone replacement therapy; Z79.4 Long term (current) use of insulin; Z79.899 Other long term (current) drug therapy; Z20.822 Contact with and (suspected) exposure to COVID-19
CPT/HCPCS: 36415; 70450; 71250; 72125; 74176; 80053; 83735; 85025; 85610; 99285; U0002; 81001; 82947; 97162-GP; 97165-GO; A9270-GY; J1644; J1815-GY; J7030